=== PATIENT | female | born 1950 | race Caucasian/White ===

== ENCOUNTER 2017-07-26 17:21 | Emergency (ER) | payer MEDICARE ==
[~2017-07-26] VITALS: Ht 165.1 cm; Wt 105.7 kg
[~2017-07-26 17:21] MED LIST: ACYC800 PO; ALBU3IS INH; ALBU90OI61 INH; AMLO10 PO; ASPI81CH PO; BUDE6HFA INH; CHOL10002 PO; FURO40 PO; IBUP400 PO; LEVSOD100 PO; Metformin HCl1000 MG PO; POTCHL10ER PO; Quinapril HCl40 MG PO; SERT100 PO; Synthroid25 MCG PO; VITAMIN E100 UNI1 PO
== END 2017-07-26 19:27 | disposition home or self-care (01) ==
LOC: ER 17:21
DX: S80.11XA Contusion of right lower leg, initial encounter (principal); I10 Essential (primary) hypertension; E11.9 Type 2 diabetes mellitus without complications; E03.9 Hypothyroidism, unspecified; Z79.84 Long term (current) use of oral hypoglycemic drugs; Z79.899 Other long term (current) drug therapy; Z79.82 Long term (current) use of aspirin; Z90.49 Acquired absence of other specified parts of digestive tract; Z90.710 Acquired absence of both cervix and uterus; Z87.891 Personal history of nicotine dependence; W01.0XXA Fall on same level from slipping, tripping and stumbling without subsequent striking against object, initial encounter
CPT/HCPCS: 73590; 99283

== ENCOUNTER 2018-03-12 11:57 | Emergency (ER) | payer MEDICARE ==
[~2018-03-12] VITALS: Ht 160 cm; Wt 110.2 kg
[2018-03-12 12:54] LABS: BASOPHILS ABSOLUTE AUTO 0.06 K/mm3 (0.00-0.23); BASOPHILS PERCENT AUTO 1 % (0-2); EOSINOPHILS ABSOLUTE AUTO 0.33 K/mm3 (0.00-0.68); EOSINOPHILS PERCENT AUTO 3 % (0-6); Hematocrit 40.4 % (33.0-51.0); Hemoglobin 12.9 g/dL (11.5-16.0); IMMATURE GRAN ABSOLUTE AUTO 0.05 K/mm3 (0.00-0.10); IMMATURE GRAN PERCENT AUTO 1 % (0-1); LYMPHOCYTES PERCENT AUTO 14 % (21-46); MONOCYTES ABSOLUTE AUTO 0.64 K/mm3 (0.16-1.47); MONOCYTES PERCENT AUTO 6 % (4-13); Mean Corpuscular HGB 29.7 pg (26.0-34.0); Mean Corpuscular HGB Conc 31.9 g/dL (31.5-36.5); Mean Corpuscular Volume 93 fL (80-100); Mean Platelet Volume 9.3 fL (9.1-12.4); NEUTROPHILS ABSOLUTE AUTO 7.88 K/mm3 (1.96-9.15); NEUTROPHILS PERCENT AUTO 75 % (41-73); Platelet Count 441 K/mm3 (150-400); RDW Coefficient Variation 12.7 % (11.7-14.2); RDW Standard Deviation 43.6 fL (35.1-46.3); Red Blood Cell Count 4.34 M/mm3 (3.80-5.20); White Blood Cell Count 10.46 K/mm3 (4.00-11.30)
[2018-03-12 13:13] LABS: Alanine Aminotransfer (ALT/SGP 30 U/L (12-78); Albumin, Blood 3.6 g/dL (3.4-5.0); Albumin/Globulin Ratio 0.9 (0.8-1.8); Alk Phos 113 U/L (50-136); Anion Gap 6 mmol/L (6-16); Aspartate Aminotrans (AST/SGOT 19 U/L (12-37); Bilirubin, Total 0.5 mg/dL (0.1-1.0); Blood Urea Nitrogen 13 mg/dL (8-24); Bun/Creatinine Ratio 15.3 (12.0-20.0); CO2, Blood 33 mmol/L (21-32); Calcium, Blood 9.9 mg/dL (8.5-10.1); Chloride, Blood 101 mmol/L (98-108); Creatinine, Blood 0.85 mg/dL (0.40-1.00); Globulin, Blood 3.8 g/dL (2.2-4.0); Glomerular Filtration Rate >60 (60-); Glucose, Blood 180 mg/dL (70-99); Potassium, Blood 3.8 mmol/L (3.5-5.5); Sodium, Blood 140 mmol/L (136-145); Total Protein, Blood 7.4 g/dL (6.4-8.2)
[2018-03-12] MEDS ORDERED: Bactrim Ds Tab1 EACH PO (13:21)
[2018-03-12] MEDS ORDERED: CEPH500 PO (13:21)
== END 2018-03-12 13:41 | disposition home or self-care (01) ==
LOC: ER 11:57
PROVIDERS: Physician Assistant
DX: T81.49XA Infection following a procedure, other surgical site, initial encounter (principal); L03.115 Cellulitis of right lower limb; I10 Essential (primary) hypertension; E11.9 Type 2 diabetes mellitus without complications; Z87.891 Personal history of nicotine dependence
CPT/HCPCS: 36415; 80053; 85025; 93971; 99284-25

== ENCOUNTER 2021-06-18 14:18 | Inpatient (IN) | payer MEDICARE ==
[~2021-06-18] VITALS: Ht 162.6 cm; Wt 118.9 kg
[~2021-06-18 14:18] MED LIST changes: +Bactrim Ds Tab1 EACH PO; +CEPH500 PO
[2021-06-18 15:49] LABS: BASOPHILS ABSOLUTE AUTO 0.05 K/mm3 (0.00-0.23); BASOPHILS PERCENT AUTO 0 % (0-2); EOSINOPHILS ABSOLUTE AUTO 0.06 K/mm3 (0.00-0.68); EOSINOPHILS PERCENT AUTO 1 % (0-6); Hematocrit 44.6 % (33.0-51.0); Hemoglobin 15.1 g/dL (11.5-16.0); IMMATURE GRAN ABSOLUTE AUTO 0.05 K/mm3 (0.00-0.10); IMMATURE GRAN PERCENT AUTO 0 % (0-1); LYMPHOCYTES ABSOLUTE AUTO 0.96 K/mm3 (0.84-5.20); LYMPHOCYTES PERCENT AUTO 8 % (21-46); MONOCYTES ABSOLUTE AUTO 1.19 K/mm3 (0.16-1.47); MONOCYTES PERCENT AUTO 9 % (4-13); Mean Corpuscular HGB 31.1 pg (26.0-34.0); Mean Corpuscular HGB Conc 33.9 g/dL (31.5-36.5); Mean Corpuscular Volume 92 fL (80-100); NEUTROPHILS ABSOLUTE AUTO 10.56 K/mm3 (1.96-9.15); NEUTROPHILS PERCENT AUTO 82 % (41-73); Platelet Count 212 K/mm3 (150-400); RDW Coefficient Variation 12.7 % (11.7-14.2); RDW Standard Deviation 42.7 fL (35.1-46.3); Red Blood Cell Count 4.85 M/mm3 (3.80-5.20); White Blood Cell Count 12.87 K/mm3 (4.00-11.30)
[2021-06-18 16:13] LABS: Alanine Aminotransfer (ALT/SGP 30 U/L (12-78); Albumin, Blood 3.6 g/dL (3.4-5.0); Albumin/Globulin Ratio 1.1 (0.8-1.8); Alk Phos 88 U/L (50-136); Anion Gap 6 mmol/L (6-16); Aspartate Aminotrans (AST/SGOT 20 U/L (12-37); Bilirubin, Total 1.9 mg/dL (0.1-1.0); Blood Urea Nitrogen 9 mg/dL (8-24); Bun/Creatinine Ratio 13.7 (12.0-20.0); CO2, Blood 31 mmol/L (21-32); Calcium, Blood 9.8 mg/dL (8.5-10.1); Chloride, Blood 102 mmol/L (98-108); Creatinine, Blood 0.66 mg/dL (0.40-1.00); Globulin, Blood 3.2 g/dL (2.2-4.0); Glomerular Filtration Rate >60 (60-); Glucose, Blood 177 mg/dL (70-99); Potassium, Blood 3.7 mmol/L (3.5-5.5); Sodium, Blood 139 mmol/L (136-145); Total Protein, Blood 6.8 g/dL (6.4-8.2); Troponin I <0.015 ng/mL (0.000-0.040)
[2021-06-18 16:39] LABS: Influenza A, PCR NEGATIVE (NEGATIVE); Influenza B, PCR NEGATIVE (NEGATIVE); Resp Syncytial Virus, PCR NEGATIVE (NEGATIVE); SARS-Cov-2 (COVID-19) PCR, MMC NEGATIVE (NEGATIVE)
[2021-06-18] MEDS ORDERED: ATOR20 PO (19:07)
[2021-06-18] MEDS ORDERED: Isosorbide Mono60 MG PO (19:08)
[2021-06-18] MEDS ORDERED: ATEN25 PO (19:09)
[2021-06-18] MEDS ORDERED: XARELTO20 MG PO (19:09)
[2021-06-18] MEDS ORDERED: GLUCOPHAGE1000 M1 PO (19:10)
[2021-06-18] MEDS ORDERED: HYDCHL25 PO (19:11)
[2021-06-19 04:56] LABS: BASOPHILS ABSOLUTE AUTO 0.05 K/mm3 (0.00-0.23); BASOPHILS PERCENT AUTO 1 % (0-2); EOSINOPHILS ABSOLUTE AUTO 0.23 K/mm3 (0.00-0.68); EOSINOPHILS PERCENT AUTO 2 % (0-6); Hematocrit 45.8 % (33.0-51.0); IMMATURE GRAN ABSOLUTE AUTO 0.06 K/mm3 (0.00-0.10); IMMATURE GRAN PERCENT AUTO 1 % (0-1); LYMPHOCYTES ABSOLUTE AUTO 1.36 K/mm3 (0.84-5.20); LYMPHOCYTES PERCENT AUTO 12 % (21-46); MONOCYTES ABSOLUTE AUTO 1.08 K/mm3 (0.16-1.47); MONOCYTES PERCENT AUTO 10 % (4-13); Mean Corpuscular HGB 30.7 pg (26.0-34.0); Mean Corpuscular HGB Conc 32.8 g/dL (31.5-36.5); Mean Corpuscular Volume 94 fL (80-100); Mean Platelet Volume 10.1 fL (9.1-12.4); NEUTROPHILS PERCENT AUTO 75 % (41-73); Platelet Count 192 K/mm3 (150-400); RDW Coefficient Variation 12.8 % (11.7-14.2); RDW Standard Deviation 43.9 fL (35.1-46.3); Red Blood Cell Count 4.88 M/mm3 (3.80-5.20); White Blood Cell Count 10.98 K/mm3 (4.00-11.30)
--- NOTE | 2021-06-19 05:20 | NUR ---
SHIFT SUMMARY PT WAS ADMITTED FOR SEPSIS DUE TO PNEUMONIA. FULL CODE STATUS.PT IS AA0X4, PLEASANT AND COOPERATIVE WITH CARE. PT USED HER CPAP MACHINE THROUGH THE NIGHT. PER TELE MONITOR PT WAS AFIB 65-80 HR.PT WAS COMPLAINING OF RIB PAIN MOST OF THE NIGH.PT WAS MEDICATED FOR PAIN PER EMAR. PT IS ON 3L NC AT THE MOMENT .PT IS SOB WITH EXHAUSTION. BSS BILATERALLY EXPIRATORY WHEEZING. RESPIRATORY THERAPIST WAS CALLED AND NEBULIZER TX WAS GIVEN.PT STATED SHE FELT BETTER AFTERWARDS. PT IS RESTING NOW IN BED ,NO SIGN OF DISTRESS OBSERVED.BED IN LOWER POSITION AND CALL LIGHT IN EASY REACH.WILL CONTINUE TO MONITOR IN CARE.
[2021-06-19 05:34] LABS: Anion Gap 4 mmol/L (6-16); Blood Urea Nitrogen 12 mg/dL (8-24); Bun/Creatinine Ratio 17.6 (12.0-20.0); CO2, Blood 36 mmol/L (21-32); Calcium, Blood 9.7 mg/dL (8.5-10.1); Chloride, Blood 99 mmol/L (98-108); Creatinine, Blood 0.68 mg/dL (0.40-1.00); Glomerular Filtration Rate >60 (60-); Glucose, Blood 157 mg/dL (70-99); Potassium, Blood 3.7 mmol/L (3.5-5.5); Sodium, Blood 139 mmol/L (136-145)
--- NOTE | 2021-06-19 09:38 | NUR ---
PT'S DAUGHTER CALLED THERE WAS NO ANSWER SO MESSAGE WAS LEFT
--- NOTE | 2021-06-19 13:39 | NUR ---
PT WITH C/O WORSENING LT SIDED PAIN, PT REPOSITIONED TO FIND A POSITION OF COMFORT, TREATED WITH TYLENOL PO, AND HEATING PAD APPLIED. PT NOW WITH EYES CLOSED APPEARS TO BE SLEEPING WITH OCCASIONAL MOAN
[2021-06-19] MEDS ORDERED: Cetirizine HCl10 MG PO (16:24)
--- NOTE | 2021-06-19 17:19 | NUR ---
SHIFT NOTE HAS ELECTED TO NOT TAKE INSULIN COVERAGE FOR GLUCOSE THAT REMAINED <170 SHE TAKES ORAL DIABETIC AGENTS. AFIB 70s ON MONITOR. PT WEARS CPAP AT [facility], HAD BEEN ON 3L O2 VIA NC T/O THE DAY WITH A TRIAL REMOVAL OF O2, PT WAS ABLE TO REMAIN OF RA X2 HOURS. PT DOES REPORT INTERMITTENT LT RIB PAIN WHICH IS IMPROVED WITH TYLENOL AND HEAT THERAPY. NEW IV PLACED TO LT HAND. PT WAS ABLE TO GO VISIT HER TODAY IN ROOM 348.
--- NOTE | 2021-06-20 05:43 | NUR ---
SHIFT SUMMARY PTIS AA0X4, PLEASANT AND COOPERATIVE TO CARE. PT IS STILL COMPLAINING OF RIBS PAIN AND SOB WITH EXHAUSTION. PT WAS MEDICATED FOR PAIN PER EMAR. PER MONIOR TECH ,PT WAS AFIB WITH A CONTROL HR 79 TO 85.PTUSED HER CPAP MACHINE DURING THE NIGHT.PT'S BP WAS ELEVATED AT THE END OF SHIFT. HYDRALIZINE PRN WAS GIVEN ORDERE. BP WAS RECHECKED AND WENT DOWN . PT IS ON 3L NC ,SIITING DOWN, NO SIGN OF DISTRESS OBSERVED. WILL CONTINUE TO MONITOR UNTIL GIVEN REPORT TO ONCOMIND NURSE.
--- NOTE | 2021-06-20 08:00 | NUR ---
pt laying in bed watching tv, a/ox3, pleasant and cooperative with care, follows commands well, denies pain, lungs are dim t/o, resp even and unlabored, occ productive cough noted, complaining of dry nose, placed humitity on her 02, currently on 3 liters and uses cpap at hs, hrr distant, running afib per monitor, see strip, no edema noted, ppp+1, cap refill <3sec, vs stable, afebrile, iv sites are clear and patent, btx4, abd flat soft nontender, voids without diff, skin c/w/d, maew, shweta call light in reach.
[2021-06-20] MEDS ORDERED: PRED20 PO (13:02)
[2021-06-20] MEDS ORDERED: CEFD300 PO (13:03)
[2021-06-20] MEDS ORDERED: AZIT500 PO (13:04)
[2021-06-20] MEDS ORDERED: TRAM50 PO (13:05)
[2021-06-20] MEDS ORDERED: IPRAT-ALBUT 0.5-3 ML INH (13:06)
--- NOTE | 2021-06-20 13:33 | NUR ---
PT HAS BEEN DISCHARGED TO HOME, WENT OVER HER DISCHARGE INSTRUCTIONS WITH HER, PHARMACY WENT OVER HER MEDICATIONS WITH HER, SHE VERBALIZED UNDERSTANDING, FAXED HER NEW MEDICATIONS TO [facility] [address], IV REMOVED INTACT, WILL GO VISIT HER SPOUCE PRIOR TO LEAVING.
== END 2021-06-20 15:02 | disposition home or self-care (01) | DRG 871 ==
LOC: ER 14:18 → MEDS 16:47
PROVIDERS: Emergency Medicine; ADMIT Internal Medicine
DX: A41.9 Sepsis, unspecified organism (principal); J18.9 Pneumonia, unspecified organism; J96.01 Acute respiratory failure with hypoxia; Z68.42 Body mass index [BMI] 45.0-49.9, adult; E11.9 Type 2 diabetes mellitus without complications; Z20.822 Contact with and (suspected) exposure to COVID-19; I10 Essential (primary) hypertension; G47.33 Obstructive sleep apnea (adult) (pediatric); I16.0 Hypertensive urgency; I48.0 Paroxysmal atrial fibrillation; E66.9 Obesity, unspecified; F32.A Depression, unspecified; E78.5 Hyperlipidemia, unspecified; G25.81 Restless legs syndrome; E55.9 Vitamin D deficiency, unspecified; Z53.20 Procedure and treatment not carried out because of patient's decision for unspecified reasons; Z87.891 Personal history of nicotine dependence; Z99.89 Dependence on other enabling machines and devices; E03.9 Hypothyroidism, unspecified; Z90.49 Acquired absence of other specified parts of digestive tract; Z90.710 Acquired absence of both cervix and uterus; Z98.890 Other specified postprocedural states; Z79.01 Long term (current) use of anticoagulants; Z79.82 Long term (current) use of aspirin; Z79.899 Other long term (current) drug therapy
CPT/HCPCS: 0241U; 36415; 71045; 80048; 80053; 82947; 83605; 83880; 84145; 84484; 85025; 86140; 87040; 93005; 93010; 94640; 94660; 94760; 94761; 96365; 96367; 96375; 99285-25; A9270; J0360; J0456; J0696; J2270; J7030; J7050

== ENCOUNTER 2021-07-20 09:00 | Inpatient (IN) | payer MEDICARE ==
[~2021-07-20] VITALS: Ht 167.6 cm; Wt 119.2 kg
[~2021-07-20 09:00] MED LIST changes: +ATEN25 PO; +ATOR20 PO; +AZIT500 PO; +CEFD300 PO; +Cetirizine HCl10 MG PO; +GLUCOPHAGE1000 M1 PO; +HYDCHL25 PO; +IPRAT-ALBUT 0.5-3 ML INH; +Isosorbide Mono60 MG PO; +PRED20 PO; +TRAM50 PO; +XARELTO20 MG PO
[2021-07-20 10:19] LABS: BASOPHILS ABSOLUTE AUTO 0.05 K/mm3 (0.00-0.23); BASOPHILS PERCENT AUTO 1 % (0-2); EOSINOPHILS ABSOLUTE AUTO 0.19 K/mm3 (0.00-0.68); EOSINOPHILS PERCENT AUTO 2 % (0-6); Hematocrit 45.4 % (33.0-51.0); Hemoglobin 14.8 g/dL (11.5-16.0); IMMATURE GRAN ABSOLUTE AUTO 0.03 K/mm3 (0.00-0.10); IMMATURE GRAN PERCENT AUTO 0 % (0-1); LYMPHOCYTES ABSOLUTE AUTO 0.87 K/mm3 (0.84-5.20); LYMPHOCYTES PERCENT AUTO 11 % (21-46); MONOCYTES PERCENT AUTO 10 % (4-13); Mean Corpuscular HGB 30.7 pg (26.0-34.0); Mean Corpuscular HGB Conc 32.6 g/dL (31.5-36.5); Mean Corpuscular Volume 94 fL (80-100); Mean Platelet Volume 10.6 fL (9.1-12.4); NEUTROPHILS ABSOLUTE AUTO 6.19 K/mm3 (1.96-9.15); NEUTROPHILS PERCENT AUTO 76 % (41-73); Platelet Count 212 K/mm3 (150-400); RDW Coefficient Variation 13.1 % (11.7-14.2); RDW Standard Deviation 45.3 fL (35.1-46.3); Red Blood Cell Count 4.82 M/mm3 (3.80-5.20); White Blood Cell Count 8.13 K/mm3 (4.00-11.30)
[2021-07-20 10:35] LABS: Alanine Aminotransfer (ALT/SGP 54 U/L (12-78); Albumin, Blood 3.9 g/dL (3.4-5.0); Albumin/Globulin Ratio 1.1 (0.8-1.8); Alk Phos 89 U/L (50-136); Anion Gap 4 mmol/L (6-16); Aspartate Aminotrans (AST/SGOT 44 U/L (12-37); Bilirubin, Total 1.3 mg/dL (0.1-1.0); Blood Urea Nitrogen 10 mg/dL (8-24); Bun/Creatinine Ratio 18.2 (12.0-20.0); CO2, Blood 32 mmol/L (21-32); Calcium, Blood 9.4 mg/dL (8.5-10.1); Chloride, Blood 105 mmol/L (98-108); Creatinine, Blood 0.55 mg/dL (0.40-1.00); Globulin, Blood 3.5 g/dL (2.2-4.0); Glomerular Filtration Rate >60 (60-); Glucose, Blood 170 mg/dL (70-99); Potassium, Blood 4.2 mmol/L (3.5-5.5); Sodium, Blood 141 mmol/L (136-145); Total Protein, Blood 7.4 g/dL (6.4-8.2)
[2021-07-20 10:50] LABS: Influenza A, PCR NEGATIVE (NEGATIVE); Influenza B, PCR NEGATIVE (NEGATIVE); Resp Syncytial Virus, PCR NEGATIVE (NEGATIVE); SARS-Cov-2 (COVID-19) PCR, MMC NEGATIVE (NEGATIVE)
--- NOTE | 2021-07-20 14:37 | NUR ---
ARRIVAL TO UNIT PT ARRIVED TO UNIT FROM ER. ABLE TO TRANSFER SELF TO BED. SHORTNESS OF BREATH ON EXERTION. 4L NASAL CANULA. SPOKE WITH PATIENT ABOUT USING BSC D/T DYSPNEA, SHE IS ADAMANT ON AMBULATING TO RESTROOM. SHE WILL CALL TO HAVE HELP THOUGH. LUNGS COARSE ON LEFT SIDE. EXPIRATORY WHEEZE T/O. SHE REPORTS SHE HAS BEEN ON 3L NASAL CANULA SINCE PNEUMONIA DIAGNOSES ON 06/29. SHE REPORTS FEELING BETTER ON ARRIVAL TO FLOOR THAN INITIALLY IN ER.
--- NOTE | 2021-07-20 16:41 | NUR ---
NO ACUTE CHANGES SINCE ARRIVAL TO UNIT. PT PLEASANT AND COOPERATIVE, SHE HAS BEEN SITTING UP IN BED WATCHING TV ON HER TABLET. TOLERATING PO WELL, ABLE TO AMBULATE TO RESTROOM WITH SOME SOB ONCE BACK TO BED. ONLY ABLE TO TOLERATE LAYING IN BED IF SHE IS SITTING IN HIGH FOWLERS. CBG OF 299 ON SPOT CHECK PER DR. FRANKS. NEW ORDERS FOR ACHS AND SLIDING SCALE.
--- NOTE | 2021-07-21 04:02 | NUR ---
DAVID WAS UP AND DOWN LAST NIGHT AFTER TAKING IV LASIX IN THE EVENING. URINE IS VERY DILUTE IN APPEARANCE AND CAME FREQUENTLY FOR HER. BLOOD PRESSURE AT THE CHANGE OF SHIFT WAS QUITE HIGH WITH SYSTOLIC IN THE 160'S, AND A DIASTOLIC IN THE 120 RANGE. IT WAS AT THAT TIME THAT PATIENTS IMDUR WELL ASA A 40MG DOSE OF IV LASIX WAS GIVEN PER ORDER. BP 45 MINUTES LATER 150/80'S. PATIENT IS ALERT AND ORIENTED TIMES 4, PLEASANT AND COOPERATIVE WITH CARE. DOES GET TEARFUL WHEN SUPPORT FOR THE LOSS OF HER SPOUSE OF 48 YEARS IS OFFERED.
[2021-07-21 04:30] LABS: BASOPHILS ABSOLUTE AUTO 0.02 K/mm3 (0.00-0.23); BASOPHILS PERCENT AUTO 0 % (0-2); EOSINOPHILS ABSOLUTE AUTO 0.01 K/mm3 (0.00-0.68); EOSINOPHILS PERCENT AUTO 0 % (0-6); Hematocrit 40.5 % (33.0-51.0); Hemoglobin 13.2 g/dL (11.5-16.0); IMMATURE GRAN ABSOLUTE AUTO 0.03 K/mm3 (0.00-0.10); IMMATURE GRAN PERCENT AUTO 0 % (0-1); LYMPHOCYTES PERCENT AUTO 12 % (21-46); MONOCYTES ABSOLUTE AUTO 0.79 K/mm3 (0.16-1.47); MONOCYTES PERCENT AUTO 11 % (4-13); Mean Corpuscular HGB 30.4 pg (26.0-34.0); Mean Corpuscular HGB Conc 32.6 g/dL (31.5-36.5); Mean Corpuscular Volume 93 fL (80-100); Mean Platelet Volume 10.4 fL (9.1-12.4); NEUTROPHILS PERCENT AUTO 76 % (41-73); Platelet Count 204 K/mm3 (150-400); RDW Coefficient Variation 12.9 % (11.7-14.2); RDW Standard Deviation 43.8 fL (35.1-46.3); Red Blood Cell Count 4.34 M/mm3 (3.80-5.20); White Blood Cell Count 6.95 K/mm3 (4.00-11.30)
[2021-07-21 04:50] LABS: Alanine Aminotransfer (ALT/SGP 40 U/L (12-78); Albumin, Blood 3.4 g/dL (3.4-5.0); Alk Phos 73 U/L (50-136); Anion Gap 4 mmol/L (6-16); Aspartate Aminotrans (AST/SGOT 17 U/L (12-37); Bilirubin, Total 1.3 mg/dL (0.1-1.0); Blood Urea Nitrogen 16 mg/dL (8-24); Bun/Creatinine Ratio 25.4 (12.0-20.0); CO2, Blood 32 mmol/L (21-32); Calcium, Blood 9.4 mg/dL (8.5-10.1); Chloride, Blood 103 mmol/L (98-108); Creatinine, Blood 0.63 mg/dL (0.40-1.00); Globulin, Blood 3.4 g/dL (2.2-4.0); Glomerular Filtration Rate >60 (60-); Glucose, Blood 148 mg/dL (70-99); Potassium, Blood 3.7 mmol/L (3.5-5.5); Sodium, Blood 139 mmol/L (136-145); Total Protein, Blood 6.8 g/dL (6.4-8.2)
[2021-07-21] MEDS ORDERED: NIFE90ER PO (15:42)
[2021-07-21] MEDS ORDERED: AIRDUO RESPICL1 EAC4 INH (15:43)
[2021-07-21] MEDS ORDERED: FURO20 PO (15:43)
--- NOTE | 2021-07-21 16:53 | NUR ---
DC SUMMARY PT DISCHARGING TO HOME TODAY. PT AxOx4. PLEASANT AND COOPERATIVE WITH CARE. PT HAD ECHO AND CXR TODAY. DISCUSSED DC INSTRUCTIONS W/ PATIENT, INCLUDING DC MEDICATIONS, AND FOLLOW UP APPOINTMENTS. PT VERBALIZES UNDERSTANDING. DENIES ANY FURTHER QUESTIONS AT THIS TIME. VITALS REVIEWED. PT SAFELY ESCORTED OUT VIA WC WITH DIE INSPECTOR TO CAR WITH FAMILY MEMBER.
== END 2021-07-21 16:37 | disposition home or self-care (01) | DRG 292 ==
LOC: ER 09:00 → MEDS 13:21
PROVIDERS: Emergency Medicine; ADMIT Family Medicine
DX: I11.0 Hypertensive heart disease with heart failure (principal); E66.2 Morbid (severe) obesity with alveolar hypoventilation; Z68.41 Body mass index [BMI] 40.0-44.9, adult; J44.1 Chronic obstructive pulmonary disease with (acute) exacerbation; Z20.822 Contact with and (suspected) exposure to COVID-19; I50.9 Heart failure, unspecified; E11.9 Type 2 diabetes mellitus without complications; I48.91 Unspecified atrial fibrillation; E03.9 Hypothyroidism, unspecified; Z23 Encounter for immunization; F32.A Depression, unspecified; E78.5 Hyperlipidemia, unspecified; G89.29 Other chronic pain; G25.81 Restless legs syndrome; M19.90 Unspecified osteoarthritis, unspecified site; F41.9 Anxiety disorder, unspecified; Z79.84 Long term (current) use of oral hypoglycemic drugs; Z79.899 Other long term (current) drug therapy; Z79.01 Long term (current) use of anticoagulants; Z90.49 Acquired absence of other specified parts of digestive tract; Z90.710 Acquired absence of both cervix and uterus; Z87.891 Personal history of nicotine dependence
CPT/HCPCS: 0241U; 36415; 71045; 71046; 80053; 82947; 83605; 83735; 84145; 85025; 87040; 90686; 94640; 94644; 94762; 96365; 96375; 99285-25; A9270; C8929; J0456; J0696; J1940; J2930; J7050; Q9957

== ENCOUNTER → 2021-09-05 | Outpatient (CLI) | payer MEDICARE ==
[~2021-09-05] MED LIST changes: +AIRDUO RESPICL1 EAC4 INH; +FURO20 PO; +NIFE90ER PO
[2021-09-05 15:25] LABS: BASOPHILS ABSOLUTE AUTO 0.06 K/mm3 (0.00-0.23); BASOPHILS PERCENT AUTO 1 % (0-2); EOSINOPHILS ABSOLUTE AUTO 0.18 K/mm3 (0.00-0.68); EOSINOPHILS PERCENT AUTO 3 % (0-6); Hematocrit 41.4 % (33.0-51.0); Hemoglobin 14.1 g/dL (11.5-16.0); IMMATURE GRAN ABSOLUTE AUTO 0.03 K/mm3 (0.00-0.10); IMMATURE GRAN PERCENT AUTO 0 % (0-1); LYMPHOCYTES ABSOLUTE AUTO 1.77 K/mm3 (0.84-5.20); LYMPHOCYTES PERCENT AUTO 25 % (21-46); MONOCYTES ABSOLUTE AUTO 0.57 K/mm3 (0.16-1.47); MONOCYTES PERCENT AUTO 8 % (4-13); Mean Corpuscular HGB 31.3 pg (26.0-34.0); Mean Corpuscular HGB Conc 34.1 g/dL (31.5-36.5); Mean Corpuscular Volume 92 fL (80-100); Mean Platelet Volume 10.7 fL (9.1-12.4); NEUTROPHILS PERCENT AUTO 63 % (41-73); Platelet Count 192 K/mm3 (150-400); RDW Coefficient Variation 12.8 % (11.7-14.2); RDW Standard Deviation 42.4 fL (35.1-46.3); Red Blood Cell Count 4.51 M/mm3 (3.80-5.20); White Blood Cell Count 7.11 K/mm3 (4.00-11.30)
[2021-09-05 15:28] LABS: Bun/Creatinine Ratio 22.4 (12.0-20.0); Calcium, Blood 10.6 mg/dL (8.5-10.1); Creatinine, Blood 1.47 mg/dL (0.40-1.00); Potassium, Blood 3.6 mmol/L (3.5-5.5)
== END | disposition home or self-care (01) ==
LOC: LAB SHORT 15:18
PROVIDERS: Physician Assistant Surgical
DX: R42 Dizziness and giddiness (principal)
CPT/HCPCS: 80048; 83880; 85025

== ENCOUNTER → 2021-10-12 | Outpatient (CLI) | payer MEDICARE ==
[2021-10-12 14:25] LABS: BASOPHILS ABSOLUTE AUTO 0.04 K/mm3 (0.00-0.23); BASOPHILS PERCENT AUTO 0 % (0-2); EOSINOPHILS ABSOLUTE AUTO 0.03 K/mm3 (0.00-0.68); EOSINOPHILS PERCENT AUTO 0 % (0-6); Hematocrit 42.7 % (33.0-51.0); Hemoglobin 14.7 g/dL (11.5-16.0); IMMATURE GRAN PERCENT AUTO 1 % (0-1); LYMPHOCYTES ABSOLUTE AUTO 0.89 K/mm3 (0.84-5.20); LYMPHOCYTES PERCENT AUTO 9 % (21-46); MONOCYTES ABSOLUTE AUTO 0.37 K/mm3 (0.16-1.47); MONOCYTES PERCENT AUTO 4 % (4-13); Mean Corpuscular HGB 31.8 pg (26.0-34.0); Mean Corpuscular HGB Conc 34.4 g/dL (31.5-36.5); Mean Corpuscular Volume 92 fL (80-100); Mean Platelet Volume 10.3 fL (9.1-12.4); NEUTROPHILS ABSOLUTE AUTO 8.77 K/mm3 (1.96-9.15); NEUTROPHILS PERCENT AUTO 86 % (41-73); Platelet Count 219 K/mm3 (150-400); RDW Coefficient Variation 12.8 % (11.7-14.2); RDW Standard Deviation 43.4 fL (35.1-46.3); Red Blood Cell Count 4.62 M/mm3 (3.80-5.20)
[2021-10-12 14:45] LABS: Albumin, Blood 3.9 g/dL (3.4-5.0); Albumin/Globulin Ratio 1.1 (0.8-1.8); Bilirubin, Total 0.7 mg/dL (0.1-1.0); Calcium, Blood 9.5 mg/dL (8.5-10.1); Creatinine, Blood 1.37 mg/dL (0.40-1.00); Free Thyroxine 1.25 ng/dL (0.70-1.60); Globulin, Blood 3.5 g/dL (2.2-4.0); Potassium, Blood 4.4 mmol/L (3.5-5.5); Thyroid Stimulating Hormone 0.5 uIU/mL (0.360-4.800); Total Protein, Blood 7.4 g/dL (6.4-8.2)
== END ==
LOC: LAB SHORT 14:07 → LAB 14:07
PROVIDERS: General Practice
DX: E87.5 Hyperkalemia (principal); R06.2 Wheezing; R09.02 Hypoxemia; R53.81 Other malaise
CPT/HCPCS: 80053; 82330; 83880; 83970; 84439; 84443; 85025; 85379

== ENCOUNTER 2021-11-03 22:15 | Emergency (ER) | payer MEDICARE ==
[~2021-11-03] VITALS: Ht 165.1 cm; Wt 113.4 kg
[2021-11-03 23:26] LABS: BASOPHILS ABSOLUTE AUTO 0.04 K/mm3 (0.00-0.23); BASOPHILS PERCENT AUTO 1 % (0-2); EOSINOPHILS ABSOLUTE AUTO 0.21 K/mm3 (0.00-0.68); EOSINOPHILS PERCENT AUTO 3 % (0-6); Hematocrit 40.8 % (33.0-51.0); Hemoglobin 13.6 g/dL (11.5-16.0); IMMATURE GRAN ABSOLUTE AUTO 0.04 K/mm3 (0.00-0.10); IMMATURE GRAN PERCENT AUTO 1 % (0-1); LYMPHOCYTES ABSOLUTE AUTO 1.14 K/mm3 (0.84-5.20); LYMPHOCYTES PERCENT AUTO 15 % (21-46); MONOCYTES ABSOLUTE AUTO 0.67 K/mm3 (0.16-1.47); MONOCYTES PERCENT AUTO 9 % (4-13); Mean Corpuscular HGB 31.3 pg (26.0-34.0); Mean Corpuscular HGB Conc 33.3 g/dL (31.5-36.5); Mean Corpuscular Volume 94 fL (80-100); Mean Platelet Volume 10.7 fL (9.1-12.4); NEUTROPHILS ABSOLUTE AUTO 5.62 K/mm3 (1.96-9.15); NEUTROPHILS PERCENT AUTO 73 % (41-73); Platelet Count 135 K/mm3 (150-400); RDW Coefficient Variation 12.8 % (11.7-14.2); RDW Standard Deviation 44.8 fL (35.1-46.3); Red Blood Cell Count 4.34 M/mm3 (3.80-5.20); White Blood Cell Count 7.72 K/mm3 (4.00-11.30)
[2021-11-03 23:43] LABS: Albumin, Blood 3.6 g/dL (3.4-5.0); Albumin/Globulin Ratio 1.1 (0.8-1.8); Bun/Creatinine Ratio 17.2 (12.0-20.0); Calcium, Blood 9.7 mg/dL (8.5-10.1); Creatinine, Blood 0.76 mg/dL (0.40-1.00); Globulin, Blood 3.4 g/dL (2.2-4.0); Potassium, Blood 3.8 mmol/L (3.5-5.5)
[2021-11-04] MEDS ORDERED: PRED20 PO (01:20)
== END 2021-11-04 01:42 | disposition home or self-care (01) ==
LOC: ER 22:15
PROVIDERS: Student in an Organized Health Care Education/Training Program
DX: J45.901 Unspecified asthma with (acute) exacerbation (principal); I10 Essential (primary) hypertension; E11.9 Type 2 diabetes mellitus without complications; E03.9 Hypothyroidism, unspecified; Z87.891 Personal history of nicotine dependence; Z79.899 Other long term (current) drug therapy; Z79.84 Long term (current) use of oral hypoglycemic drugs; Z79.01 Long term (current) use of anticoagulants; Z99.81 Dependence on supplemental oxygen
CPT/HCPCS: 71046; 80053; 84484; 85025; 93005; 93010; 94640; 94644; 94664; 99285-25

== ENCOUNTER 2021-11-21 11:35 | Inpatient (IN) | payer MEDICARE ==
[~2021-11-21] VITALS: Ht 162.6 cm; Wt 112.5 kg
[~2021-11-21 11:35] MED LIST changes: -ALBU8HFA2 INH; -AMLO5 PO; -ATENOLOL25 MG PO; -ATOR80 PO; -ATORVASTATIN CA80 M1 PO; -Accupril40 MG PO; -Aldactone50 MG PO; -BUDESONIDE1 MG/2 M1 INH; -EUTHYROX100 MCG PO; -EUTHYROX25 MCG PO; -Glucophage 500 mg PO; -ISOSORBIDE MONO60 MG PO; -K-Dur20 MEQ PO; -KLOR-CON M1010 MEQ PO; -Pulmicort INH; -SERT25 PO; -TIOT18 INH; -TORS10 PO; -TORSE20 PO; -XARELTO10 M1 PO
[2021-11-21] MEDS ORDERED: ALBU8HFA2 INH (12:22)
[2021-11-21] MEDS ORDERED: ATENOLOL25 MG PO (12:23)
[2021-11-21] MEDS ORDERED: ATORVASTATIN CA80 M1 PO (12:24)
[2021-11-21] MEDS ORDERED: Pulmicort INH (12:26)
[2021-11-21] MEDS ORDERED: ISOSORBIDE MONO60 MG PO (12:27)
[2021-11-21] MEDS ORDERED: EUTHYROX25 MCG PO (12:28)
[2021-11-21] MEDS ORDERED: EUTHYROX100 MCG PO (12:29)
[2021-11-21] MEDS ORDERED: Glucophage 500 mg PO (12:31)
[2021-11-21] MEDS ORDERED: K-Dur20 MEQ PO (12:32)
[2021-11-21] MEDS ORDERED: Accupril40 MG PO (12:33)
[2021-11-21] MEDS ORDERED: XARELTO10 M1 PO (12:35)
[2021-11-21] MEDS ORDERED: SERT100 PO (12:36)
[2021-11-21] MEDS ORDERED: SERT25 PO (12:37)
[2021-11-21] MEDS ORDERED: Aldactone50 MG PO (12:38)
[2021-11-21] MEDS ORDERED: TORS10 PO (12:40)
[2021-11-21] MEDS ORDERED: TRAM50 PO (12:41)
[2021-11-21 14:01] LABS: Bun/Creatinine Ratio 11.8 (12.0-20.0); Calcium, Blood 9.6 mg/dL (8.5-10.1); Creatinine, Blood 5.32 mg/dL (0.40-1.00); Potassium, Blood 4.4 mmol/L (3.5-5.5)
[2021-11-21] MEDS ORDERED: ATOR80 PO (15:34)
[2021-11-21] MEDS ORDERED: TORSE20 PO (15:46)
[2021-11-21] MEDS ORDERED: BUDESONIDE1 MG/2 M1 INH (15:55)
[2021-11-21] MEDS ORDERED: TIOT18 INH (15:56)
--- NOTE | 2021-11-21 17:58 | NUR ---
SHIFT SUMMARY: PT A/O X 4 IND IN ROOM. PT DENIES PAIN, N/V THROUGHOUT SHIFT. SHE DID HAVE ONE EPISODE OF DIARRHEA WITH BROWN STOOL. PT URINATING CLEAR YELLOW URINE. DRINKING FLUIDS WELL. PLEASANT AND COOPERATIVE WITH CARES. PT SET UP ON BIPAP USING HOSPITAL EQUIPMENT. MED RECONCILIATION COMPLETED.
--- NOTE | 2021-11-22 03:53 | NUR ---
PATIENT WITH VSS ON 4L NC OVERNIGHT. PATIENT UNABLE TO TOLERATE ANY OF THE MULTIPLE FACE MASKS RT ATTEMPTED TO FIT HER WITH FOR HER CPAP OVERNIGHT AND ENDED UP WITH THE NC. PATIENTS CONTINUOUS PULSE OX WAS WNL OVERNIGHT. PATIENT UP WITH MINIMAL ASSIST DURING NIGHT TO VOID. MOVING DID CAUSE SOME NAUSEA THAT SPONTANEOUSLY RESOLVED ONCE THE PATIENT WAS BACK IN BED. NO ACUTE EVENTS OVERNIGHT.
[2021-11-22 05:39] LABS: BASOPHILS ABSOLUTE AUTO 0.04 K/mm3 (0.00-0.23); BASOPHILS PERCENT AUTO 1 % (0-2); EOSINOPHILS PERCENT AUTO 1 % (0-6); Hematocrit 34.4 % (33.0-51.0); Hemoglobin 11.7 g/dL (11.5-16.0); IMMATURE GRAN ABSOLUTE AUTO 0.03 K/mm3 (0.00-0.10); IMMATURE GRAN PERCENT AUTO 0 % (0-1); LYMPHOCYTES ABSOLUTE AUTO 1.16 K/mm3 (0.84-5.20); LYMPHOCYTES PERCENT AUTO 17 % (21-46); MONOCYTES ABSOLUTE AUTO 0.97 K/mm3 (0.16-1.47); MONOCYTES PERCENT AUTO 14 % (4-13); Mean Corpuscular HGB 31.7 pg (26.0-34.0); Mean Corpuscular Volume 93 fL (80-100); Mean Platelet Volume 10.9 fL (9.1-12.4); NEUTROPHILS ABSOLUTE AUTO 4.63 K/mm3 (1.96-9.15); NEUTROPHILS PERCENT AUTO 67 % (41-73); Platelet Count 157 K/mm3 (150-400); RDW Coefficient Variation 12.9 % (11.7-14.2); RDW Standard Deviation 43.9 fL (35.1-46.3); Red Blood Cell Count 3.69 M/mm3 (3.80-5.20); White Blood Cell Count 6.93 K/mm3 (4.00-11.30)
[2021-11-22 06:03] LABS: Albumin, Blood 3.4 g/dL (3.4-5.0); Albumin/Globulin Ratio 1.2 (0.8-1.8); Bilirubin, Total 1.9 mg/dL (0.1-1.0); Calcium, Blood 8.9 mg/dL (8.5-10.1); Creatinine, Blood 4.93 mg/dL (0.40-1.00); Globulin, Blood 2.8 g/dL (2.2-4.0); Potassium, Blood 3.8 mmol/L (3.5-5.5); Total Protein, Blood 6.2 g/dL (6.4-8.2)
[2021-11-22 13:47] LABS: Eosinophils-Raw #,Urine 0
[2021-11-22 13:48] LABS: White Blood Cells Urine 0-2 /hpf (0-5)
--- NOTE | 2021-11-22 19:13 | NUR ---
PATIENT IS ALERT AND ORIENTED AND COOPERATIVE WITH CARE. LR AT 75/HR. SBA TO THE BATHROOM. 2L O2 AT PM. PATIENT HAS HER OWN CPAP HERE. ADVANCED TO SOFT DIET THIS EVENING. NO NEW CONCERNS TODAY. WILL CONTINUE TO MONITOR
--- NOTE | 2021-11-23 04:59 | NUR ---
SHIFT SUMMARY NO ACUTE CHANGES OVERNIHGT. VSS. ADMITTED FOR CHESTER. IV HYDRATION OVERNIGHT. PT ON LR 75ML/HR. AOX4. INDEPENDENT IN ROOM. PT WEARS CPAP AT NIGHT. VOIDING WITHOUT ISSUES. DENIES DYSURIA. PT STS SHE GOT UP X3 OVERNIGHT TO VOID, WITH DECENT AMT OF URINE OUTPUT. PT IS STEADY ON HIS FEET DENIES DIZZINESS. TOLERATING PO INTAKE. DENIES NAUSEA AND VOMITING. NO BM OVERNIGHT. CALL LIGHT WITHIN REACH. WILL PROVIDE REPORT TO ONCOMING NURSE.
[2021-11-23 05:18] LABS: BASOPHILS ABSOLUTE AUTO 0.05 K/mm3 (0.00-0.23); BASOPHILS PERCENT AUTO 1 % (0-2); EOSINOPHILS ABSOLUTE AUTO 0.11 K/mm3 (0.00-0.68); EOSINOPHILS PERCENT AUTO 2 % (0-6); Hematocrit 32.9 % (33.0-51.0); Hemoglobin 11.1 g/dL (11.5-16.0); IMMATURE GRAN ABSOLUTE AUTO 0.02 K/mm3 (0.00-0.10); IMMATURE GRAN PERCENT AUTO 0 % (0-1); LYMPHOCYTES ABSOLUTE AUTO 1.17 K/mm3 (0.84-5.20); LYMPHOCYTES PERCENT AUTO 24 % (21-46); MONOCYTES ABSOLUTE AUTO 0.67 K/mm3 (0.16-1.47); MONOCYTES PERCENT AUTO 14 % (4-13); Mean Corpuscular HGB 31.5 pg (26.0-34.0); Mean Corpuscular HGB Conc 33.7 g/dL (31.5-36.5); Mean Corpuscular Volume 94 fL (80-100); Mean Platelet Volume 10.9 fL (9.1-12.4); NEUTROPHILS ABSOLUTE AUTO 2.86 K/mm3 (1.96-9.15); NEUTROPHILS PERCENT AUTO 59 % (41-73); Platelet Count 142 K/mm3 (150-400); RDW Coefficient Variation 12.8 % (11.7-14.2); RDW Standard Deviation 43.9 fL (35.1-46.3); Red Blood Cell Count 3.52 M/mm3 (3.80-5.20); White Blood Cell Count 4.88 K/mm3 (4.00-11.30)
[2021-11-23 05:43] LABS: Albumin, Blood 3.3 g/dL (3.4-5.0); Albumin/Globulin Ratio 1.2 (0.8-1.8); Bilirubin, Total 1.7 mg/dL (0.1-1.0); Bun/Creatinine Ratio 17.2 (12.0-20.0); Creatinine, Blood 3.38 mg/dL (0.40-1.00); Globulin, Blood 2.7 g/dL (2.2-4.0); Potassium, Blood 3.6 mmol/L (3.5-5.5)
--- NOTE | 2021-11-23 17:22 | NUR ---
SHIFT SUMMARY; PATIRNT HAD NO ACUTECHANGES IN CONDITION NOTED TODAY. SHE IS COOPERATIVE WITH CARE. IV FLUIDS 75ML/HR LACTATED RINGERS. CHEM BG COVERAGE I UNIT AT BREAKFAST AND 1 UNIT AT LUNCH. NO COVERAGE AT DINNER FOR CHEM BG <150. PATIENT IS AO X 4 THROUGHOUT THE DAY. OUTPUT OF 500ML URINE TODAY. NO COMPLAINTS OF PAIN OR DISCOMFORT. DURING THE DAY. PATIENT SAYS SHE IS LOOKING FORWARD TO GOING HOME. 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
--- NOTE | 2021-11-24 05:08 | NUR ---
SHIFT SUMMARY: PT IS A/OX4. SHE HAS BEEN INDEPENDENT IN THE ROOM. THE PT DID HAVE A SHOWER AROUND 0500. SHE HAS LR INFUSING @ 75ML/HR AND IS VOIDING FREQUENTLY. SHE HAD NO C/O THIS SHIFT. CALL LIGHT IS WITHIN REACH AND WE'LL CONTINUE TO MONITOR.
[2021-11-24 05:36] LABS: BASOPHILS ABSOLUTE AUTO 0.06 K/mm3 (0.00-0.23); BASOPHILS PERCENT AUTO 1 % (0-2); EOSINOPHILS ABSOLUTE AUTO 0.13 K/mm3 (0.00-0.68); EOSINOPHILS PERCENT AUTO 2 % (0-6); Hematocrit 34.5 % (33.0-51.0); Hemoglobin 11.7 g/dL (11.5-16.0); IMMATURE GRAN ABSOLUTE AUTO 0.02 K/mm3 (0.00-0.10); IMMATURE GRAN PERCENT AUTO 0 % (0-1); LYMPHOCYTES ABSOLUTE AUTO 1.65 K/mm3 (0.84-5.20); LYMPHOCYTES PERCENT AUTO 29 % (21-46); MONOCYTES PERCENT AUTO 12 % (4-13); Mean Corpuscular HGB 31.7 pg (26.0-34.0); Mean Corpuscular HGB Conc 33.9 g/dL (31.5-36.5); Mean Corpuscular Volume 94 fL (80-100); Mean Platelet Volume 10.9 fL (9.1-12.4); NEUTROPHILS ABSOLUTE AUTO 3.18 K/mm3 (1.96-9.15); NEUTROPHILS PERCENT AUTO 56 % (41-73); Platelet Count 173 K/mm3 (150-400); RDW Coefficient Variation 12.6 % (11.7-14.2); RDW Standard Deviation 43.2 fL (35.1-46.3); Red Blood Cell Count 3.69 M/mm3 (3.80-5.20); White Blood Cell Count 5.74 K/mm3 (4.00-11.30)
[2021-11-24 06:08] LABS: Bun/Creatinine Ratio 19.2 (12.0-20.0); Calcium, Blood 9.5 mg/dL (8.5-10.1); Creatinine, Blood 2.29 mg/dL (0.40-1.00)
--- NOTE | 2021-11-24 16:47 | NUR ---
SHIFT SUMMARY; PATIENT HAD UNEVENFUL DAY. SHE AMBULATES IN HALLWAY WITHOUT ASSIST. IV FLUIDS A5T 50ML/HR LACTATED RINGERS. IS NOW CONSULTED FROM [id number] AND NEW ORDERS RECEIVED INCLUDING LABS AND 24 HOUR URINE ORDERED. PATIENT IS COVERED WITH 2 UNITS INSULIN AT LUNCH TIME TODAY FOR ELEVATED CHEM BG. SHE IS ORIENTED X 4 THROUGOUT THE DAY. HAS PLEASANT AFFECT AND USES CALL LIGHT APPROPRIATELY.
--- NOTE | 2021-11-25 03:38 | NUR ---
SHIFT SUMMARY: PT IS A/OX4. INDEPENDENT IN THE ROOM/HALLWAY. SHE CURRENTLY HAS A 24 HOUR URINE DUE TO BE COLLECTED @ 1730. THE PT DID VERBALIZE THAT SHE HAD A MEDIUM BM ON 11/24 DAYSHIFT THAT WAS NOT RELAYED TO THE RN OR NEW CAR DRIVER. SHE HAD NO C/O THIS NOC SHIFT AND WE'LL CONTINUE TO MONITOR.
[2021-11-25 05:12] LABS: BASOPHILS ABSOLUTE AUTO 0.03 K/mm3 (0.00-0.23); BASOPHILS PERCENT AUTO 1 % (0-2); EOSINOPHILS ABSOLUTE AUTO 0.14 K/mm3 (0.00-0.68); EOSINOPHILS PERCENT AUTO 3 % (0-6); Hematocrit 32.1 % (33.0-51.0); Hemoglobin 10.9 g/dL (11.5-16.0); IMMATURE GRAN ABSOLUTE AUTO 0.02 K/mm3 (0.00-0.10); IMMATURE GRAN PERCENT AUTO 0 % (0-1); LYMPHOCYTES ABSOLUTE AUTO 1.21 K/mm3 (0.84-5.20); LYMPHOCYTES PERCENT AUTO 25 % (21-46); MONOCYTES ABSOLUTE AUTO 0.63 K/mm3 (0.16-1.47); MONOCYTES PERCENT AUTO 13 % (4-13); Mean Corpuscular HGB 31.9 pg (26.0-34.0); Mean Corpuscular Volume 94 fL (80-100); Mean Platelet Volume 10.9 fL (9.1-12.4); NEUTROPHILS ABSOLUTE AUTO 2.82 K/mm3 (1.96-9.15); NEUTROPHILS PERCENT AUTO 58 % (41-73); Platelet Count 159 K/mm3 (150-400); RDW Coefficient Variation 12.6 % (11.7-14.2); RDW Standard Deviation 43.5 fL (35.1-46.3); Red Blood Cell Count 3.42 M/mm3 (3.80-5.20); White Blood Cell Count 4.85 K/mm3 (4.00-11.30)
[2021-11-25 05:33] LABS: Albumin, Blood 3.3 g/dL (3.4-5.0); Albumin/Globulin Ratio 1.2 (0.8-1.8); Bilirubin, Total 1.5 mg/dL (0.1-1.0); Bun/Creatinine Ratio 17.5 (12.0-20.0); Calcium, Blood 9.5 mg/dL (8.5-10.1); Creatinine, Blood 1.83 mg/dL (0.40-1.00); Globulin, Blood 2.7 g/dL (2.2-4.0); Magnesium, Blood 1.9 mg/dL (1.6-2.4); Potassium, Blood 3.7 mmol/L (3.5-5.5)
--- NOTE | 2021-11-25 18:03 | NUR ---
SHIFT SUMMARY PT A&O, FOLLOWS COMMANDS. VERY PLEASANT. NEW IV INSERTED TO L WRIST, LR STILL INFUSING AT 50ML/HR. PT AMBULATED HALLS DURING SHIFT, INDEPENDENT. 24 HR URINE FINISHED AT 1730 AND SENT TO LAB. NO C/O PAIN. WILL CONTINUE TO MONITOR
[2021-11-25 19:41] LABS: Protein, Urine Quantitative 10.6 mg/dL (0.0-11.9)
--- NOTE | 2021-11-26 04:21 | NUR ---
SHIFT SUMMARY: PT IS A/OX4. INDEPEDENT IN THE ROOM/HALLWAY. IT IS POSSIBLE THAT SHE WILL DC TODAY. SHE HAS NOT HAD ANY C/O OF PAIN OR NAUSEA. SHE CONTINUES TO HAVE LR @ 50 ML/HR. NO NEW CHANGES TO REPORT AND WE'LL TO MONITOR THE REMAINDER OF THE SHIFT.
[2021-11-26 05:21] LABS: BASOPHILS ABSOLUTE AUTO 0.03 K/mm3 (0.00-0.23); BASOPHILS PERCENT AUTO 1 % (0-2); EOSINOPHILS ABSOLUTE AUTO 0.15 K/mm3 (0.00-0.68); EOSINOPHILS PERCENT AUTO 3 % (0-6); Hematocrit 31.4 % (33.0-51.0); Hemoglobin 10.6 g/dL (11.5-16.0); IMMATURE GRAN ABSOLUTE AUTO 0.02 K/mm3 (0.00-0.10); IMMATURE GRAN PERCENT AUTO 0 % (0-1); LYMPHOCYTES ABSOLUTE AUTO 1.25 K/mm3 (0.84-5.20); LYMPHOCYTES PERCENT AUTO 25 % (21-46); MONOCYTES PERCENT AUTO 12 % (4-13); Mean Corpuscular HGB 31.7 pg (26.0-34.0); Mean Corpuscular HGB Conc 33.8 g/dL (31.5-36.5); Mean Corpuscular Volume 94 fL (80-100); Mean Platelet Volume 10.8 fL (9.1-12.4); NEUTROPHILS ABSOLUTE AUTO 2.89 K/mm3 (1.96-9.15); NEUTROPHILS PERCENT AUTO 59 % (41-73); Platelet Count 157 K/mm3 (150-400); RDW Coefficient Variation 12.6 % (11.7-14.2); RDW Standard Deviation 43.8 fL (35.1-46.3); Red Blood Cell Count 3.34 M/mm3 (3.80-5.20); White Blood Cell Count 4.94 K/mm3 (4.00-11.30)
[2021-11-26 05:52] LABS: Albumin, Blood 3.1 g/dL (3.4-5.0); Anion Gap 6 mmol/L (6-16); Blood Urea Nitrogen 23 mg/dL (8-24); Bun/Creatinine Ratio 14.2 (12.0-20.0); CO2, Blood 29 mmol/L (21-32); Calcium, Blood 9.4 mg/dL (8.5-10.1); Chloride, Blood 109 mmol/L (98-108); Creatinine, Blood 1.62 mg/dL (0.40-1.00); Glomerular Filtration Rate 34 (60-); Glucose, Blood 135 mg/dL (70-99); Magnesium, Blood 1.8 mg/dL (1.6-2.4); Phosphorus, Blood 3.1 mg/dL (2.5-4.9); Potassium, Blood 3.8 mmol/L (3.5-5.5); Sodium, Blood 144 mmol/L (136-145)
[2021-11-26] MEDS ORDERED: AMLO5 PO (10:14)
[2021-11-26] MEDS ORDERED: FURO40 PO (10:14)
[2021-11-26] MEDS ORDERED: KLOR-CON M1010 MEQ PO (10:15)
--- NOTE | 2021-11-26 10:36 | NUR ---
DISCHARGE SUMMARY DISCHARGE INSTRUCTIONS, FOLLOW UP, AND MEDICATIONS GIVEN TO PT. PT VOICED COMPLETE UNDERSTANDING AND HAS NO QUESTIONS AT THIS TIME. PT TO WEBSITE PROGRAMMER MEDICATIONS AT PHARMACY. IV REMOVED WITH CATHETER TIP INTACT. AWAITING PT TO GET READY AND CALL RIDE. WILL CONTINUE TO MONITOR.
== END 2021-11-26 10:48 | disposition home or self-care (01) | DRG 684 ==
LOC: MEDS 11:35
PROVIDERS: Family Medicine; Hospitalist; Internal Medicine Nephrology; ADMIT Family Medicine
DX: N17.9 Acute kidney failure, unspecified (principal); J44.9 Chronic obstructive pulmonary disease, unspecified; F32.A Depression, unspecified; E11.69 Type 2 diabetes mellitus with other specified complication; E66.9 Obesity, unspecified; E78.5 Hyperlipidemia, unspecified; I10 Essential (primary) hypertension; K52.9 Noninfective gastroenteritis and colitis, unspecified; I48.91 Unspecified atrial fibrillation; E11.22 Type 2 diabetes mellitus with diabetic chronic kidney disease; N18.9 Chronic kidney disease, unspecified; Z90.49 Acquired absence of other specified parts of digestive tract; Z90.710 Acquired absence of both cervix and uterus; Z96.653 Presence of artificial knee joint, bilateral; Z88.8 Allergy status to other drugs, medicaments and biological substances; Z79.4 Long term (current) use of insulin; Z79.899 Other long term (current) drug therapy; E88.09 Other disorders of plasma-protein metabolism, not elsewhere classified; D64.9 Anemia, unspecified; E86.0 Dehydration; Z98.890 Other specified postprocedural states; F32.9 Major depressive disorder, single episode, unspecified
CPT/HCPCS: 36415; 74176; 80048; 80053; 80069; 81050; 82436; 82947; 83735; 83880; 84100; 84156; 84300; 85025; 87205; 94640; 94660; 94664; 94760; 94762; 97161; A9270; J1644; J7120

== ENCOUNTER → 2021-11-21 | Outpatient (CLI) | payer MEDICARE ==
[~2021-11-21] MED LIST changes: +ALBU8HFA2 INH; +AMLO5 PO; +ATENOLOL25 MG PO; +ATOR80 PO; +ATORVASTATIN CA80 M1 PO; +Accupril40 MG PO; +Aldactone50 MG PO; +BUDESONIDE1 MG/2 M1 INH; +EUTHYROX100 MCG PO; +EUTHYROX25 MCG PO; +Glucophage 500 mg PO; +ISOSORBIDE MONO60 MG PO; +K-Dur20 MEQ PO; +KLOR-CON M1010 MEQ PO; +Pulmicort INH; +SERT25 PO; +TIOT18 INH; +TORS10 PO; +TORSE20 PO; +XARELTO10 M1 PO
[2021-11-21 09:24] LABS: BASOPHILS ABSOLUTE AUTO 0.07 K/mm3 (0.00-0.23); BASOPHILS PERCENT AUTO 1 % (0-2); EOSINOPHILS PERCENT AUTO 1 % (0-6); Hematocrit 39.4 % (33.0-51.0); Hemoglobin 13.9 g/dL (11.5-16.0); IMMATURE GRAN ABSOLUTE AUTO 0.05 K/mm3 (0.00-0.10); IMMATURE GRAN PERCENT AUTO 1 % (0-1); LYMPHOCYTES PERCENT AUTO 11 % (21-46); MONOCYTES ABSOLUTE AUTO 1.09 K/mm3 (0.16-1.47); MONOCYTES PERCENT AUTO 11 % (4-13); Mean Corpuscular HGB 32.5 pg (26.0-34.0); Mean Corpuscular HGB Conc 35.3 g/dL (31.5-36.5); Mean Corpuscular Volume 92 fL (80-100); Mean Platelet Volume 10.7 fL (9.1-12.4); NEUTROPHILS ABSOLUTE AUTO 7.79 K/mm3 (1.96-9.15); NEUTROPHILS PERCENT AUTO 76 % (41-73); Platelet Count 196 K/mm3 (150-400); RDW Coefficient Variation 13.2 % (11.7-14.2); RDW Standard Deviation 44.3 fL (35.1-46.3); Red Blood Cell Count 4.28 M/mm3 (3.80-5.20)
[2021-11-21 09:48] LABS: Albumin/Globulin Ratio 1.3 (0.8-1.8); Bilirubin, Total 1.9 mg/dL (0.1-1.0); Bun/Creatinine Ratio 10.5 (12.0-20.0); Calcium, Blood 9.3 mg/dL (8.5-10.1); Creatinine, Blood 5.88 mg/dL (0.40-1.00); Globulin, Blood 3.1 g/dL (2.2-4.0); Potassium, Blood 4.5 mmol/L (3.5-5.5); Total Protein, Blood 7.1 g/dL (6.4-8.2)
== END | disposition home or self-care (01) ==
LOC: LAB 09:20 → LAB SHORT 09:20
PROVIDERS: Family Medicine
DX: E86.0 Dehydration (principal)
CPT/HCPCS: 80053; 85025

== ENCOUNTER 2021-11-28 06:21 | Inpatient (IN) | payer MEDICARE ==
[~2021-11-28] VITALS: Ht 162.6 cm; Wt 119.1 kg
[~2021-11-28 06:21] MED LIST changes: +ALBU8HFA2 INH; +AMLO5 PO; +ATENOLOL25 MG PO; +ATOR80 PO; +ATORVASTATIN CA80 M1 PO; +Accupril40 MG PO; +Aldactone50 MG PO; +BUDESONIDE1 MG/2 M1 INH; +EUTHYROX100 MCG PO; +EUTHYROX25 MCG PO; +Glucophage 500 mg PO; +ISOSORBIDE MONO60 MG PO; +K-Dur20 MEQ PO; +KLOR-CON M1010 MEQ PO; +Pulmicort INH; +SERT25 PO; +TIOT18 INH; +TORS10 PO; +TORSE20 PO; +XARELTO10 M1 PO
[2021-11-28 07:22] LABS: BASOPHILS ABSOLUTE AUTO 0.02 K/mm3 (0.00-0.23); BASOPHILS PERCENT AUTO 0 % (0-2); EOSINOPHILS ABSOLUTE AUTO 0.07 K/mm3 (0.00-0.68); EOSINOPHILS PERCENT AUTO 1 % (0-6); Hematocrit 31.3 % (33.0-51.0); Hemoglobin 10.8 g/dL (11.5-16.0); IMMATURE GRAN ABSOLUTE AUTO 0.04 K/mm3 (0.00-0.10); IMMATURE GRAN PERCENT AUTO 1 % (0-1); LYMPHOCYTES PERCENT AUTO 8 % (21-46); MONOCYTES PERCENT AUTO 10 % (4-13); Mean Corpuscular HGB 31.9 pg (26.0-34.0); Mean Corpuscular HGB Conc 34.5 g/dL (31.5-36.5); Mean Corpuscular Volume 92 fL (80-100); Mean Platelet Volume 10.5 fL (9.1-12.4); NEUTROPHILS ABSOLUTE AUTO 6.45 K/mm3 (1.96-9.15); NEUTROPHILS PERCENT AUTO 81 % (41-73); Platelet Count 160 K/mm3 (150-400); RDW Coefficient Variation 12.7 % (11.7-14.2); Red Blood Cell Count 3.39 M/mm3 (3.80-5.20); White Blood Cell Count 7.98 K/mm3 (4.00-11.30)
[2021-11-28 07:39] LABS: Albumin, Blood 3.4 g/dL (3.4-5.0); Bilirubin, Total 2.9 mg/dL (0.1-1.0); Bun/Creatinine Ratio 11.5 (12.0-20.0); Calcium, Blood 9.4 mg/dL (8.5-10.1); Creatinine, Blood 1.31 mg/dL (0.40-1.00); Globulin, Blood 3.3 g/dL (2.2-4.0); Potassium, Blood 3.6 mmol/L (3.5-5.5); Total Protein, Blood 6.7 g/dL (6.4-8.2)
[2021-11-28] MEDS ORDERED: Ventolin/Proventil INH (11:39)
[2021-11-28] MEDS ORDERED: AMLO10 PO (11:40)
[2021-11-28] MEDS ORDERED: ATENOLOL25 MG PO (11:42)
[2021-11-28] MEDS ORDERED: ATORVASTATIN CA80 M1 PO (11:43)
[2021-11-28] MEDS ORDERED: BUDESONIDE1 MG/2 M1 INH (11:44)
[2021-11-28] MEDS ORDERED: FUROSEMIDE40 MG PO (11:45)
[2021-11-28] MEDS ORDERED: Ipratropium Bromide (11:47)
[2021-11-28] MEDS ORDERED: Iprat-Albut 0.5-3(2. INH (11:48)
[2021-11-28] MEDS ORDERED: ISOSORBIDE MONO60 MG PO (11:50)
[2021-11-28] MEDS ORDERED: EUTHYROX25 MCG PO (11:51)
[2021-11-28] MEDS ORDERED: EUTHYROX100 MCG PO (11:52)
[2021-11-28] MEDS ORDERED: MAGNESIUM OXID400 M1 PO (11:53)
[2021-11-28] MEDS ORDERED: Glucophage 500 mg PO (11:55)
[2021-11-28] MEDS ORDERED: KLOR-CON 1010 ME1 PO (11:56)
[2021-11-28] MEDS ORDERED: Accupril40 MG PO (11:57)
[2021-11-28] MEDS ORDERED: XARELTO10 M1 PO (11:59)
[2021-11-28] MEDS ORDERED: SERT100 PO (12:00)
[2021-11-28] MEDS ORDERED: SERT25 PO (12:01)
[2021-11-28] MEDS ORDERED: Spiriva Respimat INH (12:03)
--- NOTE | 2021-11-28 13:00 | NUR ---
PT ADMITTED TO ROOM 336 FROM ED. ABLE TO TRANSFER SELF FROM GURNEY TO BED. APPEARS SOB WITH ACTIVITY BUT REPORTS IT HAS IMPROVED SINCE SHE ARRIVED TO HOSPITAL. ROOM ARRANGED ACCORDING TO HER COMFORT AND PT SETTLED.
[2021-11-28] MEDS ORDERED: GLUCOPHAGE1000 M1 PO (13:04)
--- NOTE | 2021-11-28 18:41 | NUR ---
SHIFT SUMMARY PT HAS REMAINED SITTING ON SIDE OF BED OR IN CHAIR. STATES HER RESP IMPROVED SINCE ARRIVAL TO HOSPITAL. INDEPENDENT TO BATHROOM. O2 AT 5L/M. WILL REPORT CONDITION TO ONCOMING SHIFT.
[2021-11-29 05:18] LABS: BASOPHILS ABSOLUTE AUTO 0.02 K/mm3 (0.00-0.23); BASOPHILS PERCENT AUTO 0 % (0-2); EOSINOPHILS ABSOLUTE AUTO 0.04 K/mm3 (0.00-0.68); EOSINOPHILS PERCENT AUTO 1 % (0-6); Hematocrit 31.9 % (33.0-51.0); IMMATURE GRAN ABSOLUTE AUTO 0.04 K/mm3 (0.00-0.10); IMMATURE GRAN PERCENT AUTO 1 % (0-1); LYMPHOCYTES ABSOLUTE AUTO 0.89 K/mm3 (0.84-5.20); LYMPHOCYTES PERCENT AUTO 11 % (21-46); MONOCYTES ABSOLUTE AUTO 0.77 K/mm3 (0.16-1.47); MONOCYTES PERCENT AUTO 10 % (4-13); Mean Corpuscular HGB 31.7 pg (26.0-34.0); Mean Corpuscular HGB Conc 34.5 g/dL (31.5-36.5); Mean Corpuscular Volume 92 fL (80-100); Mean Platelet Volume 10.5 fL (9.1-12.4); NEUTROPHILS ABSOLUTE AUTO 6.22 K/mm3 (1.96-9.15); NEUTROPHILS PERCENT AUTO 78 % (41-73); Platelet Count 186 K/mm3 (150-400); RDW Coefficient Variation 12.6 % (11.7-14.2); Red Blood Cell Count 3.47 M/mm3 (3.80-5.20); White Blood Cell Count 7.98 K/mm3 (4.00-11.30)
[2021-11-29 05:52] LABS: Albumin, Blood 3.6 g/dL (3.4-5.0); Bilirubin, Total 1.9 mg/dL (0.1-1.0); Bun/Creatinine Ratio 19.4 (12.0-20.0); Calcium, Blood 9.5 mg/dL (8.5-10.1); Creatinine, Blood 1.24 mg/dL (0.40-1.00); Globulin, Blood 3.5 g/dL (2.2-4.0); Magnesium, Blood 2.1 mg/dL (1.6-2.4); Potassium, Blood 3.2 mmol/L (3.5-5.5); Total Protein, Blood 7.1 g/dL (6.4-8.2)
--- NOTE | 2021-11-29 06:45 | NUR ---
SHIFT SUMMARY NOC: PT ON 3L NC WITH CONTINUOUS PULSE OX WHEN AWAKE. CPAP WITH 3L AT HS. PT AFIB 90-110'S. SBA TO BATHROOM. NO ACUTE EVENTS.
[2021-11-29 14:50] LABS: Albumin, Blood 3.4 g/dL (3.4-5.0); Anion Gap 10 mmol/L (6-16); Blood Urea Nitrogen 26 mg/dL (8-24); Bun/Creatinine Ratio 19.7 (12.0-20.0); CO2, Blood 27 mmol/L (21-32); Calcium, Blood 9.2 mg/dL (8.5-10.1); Chloride, Blood 103 mmol/L (98-108); Creatinine, Blood 1.32 mg/dL (0.40-1.00); Glomerular Filtration Rate 43 (60-); Glucose, Blood 233 mg/dL (70-99); Phosphorus, Blood 1.9 mg/dL (2.5-4.9); Potassium, Blood 3.2 mmol/L (3.5-5.5); Sodium, Blood 140 mmol/L (136-145)
--- NOTE | 2021-11-29 18:28 | NUR ---
SHIFT SUMMARY; PATIENT SPENT GOOD PART OF THE DAY WITH A HEART RATE BETWEEN 130 TO 170. OK'D ONE TIME DOSE IV CARDIZEM WITH LITTLE CHANGE IN HEART RATE. THEN HE ORDERED 30MG PO CARDZEM. AT 1830 HEART RATE STILL TACHY AT 150 WHEN SHE AMBULATES TO THE BATHROOM. SHE IS ASYMPTOMATIC. NO CHEST PAIN OR DISCOMFORT NOTED. HER APPETITE IS GOOD AND SHE HAS A PLEASANT AFFECT AND IS COOPERATVE WITH CARE. HER DAUGHTER FROM [place] WILL BE HERE THIS WEEKEND.
--- NOTE | 2021-11-30 05:08 | NUR ---
SHIFT SUMMARY 71 YR F ADMITTED ON 11/29/21 FOR FLUID OVERLOAD. DNR. PT HR HAS BEEN MUCH BETTERTHIS SHIFT RUNNING SR IN THE 80'S-90'S CONSITENTLY. NO ACUTE CHANGES OTHERWISE. PT IS USING HER CPAP AT NIGHT AND IS ABLE TO TAKE IT ON AND OFF HERSELF. SHE IS INDEPENDANT IN THE ROOM AND IS PLEASANT AND COOPERATIVE W/ CARE.
[2021-11-30 07:48] LABS: Albumin, Blood 3.1 g/dL (3.4-5.0); Anion Gap 5 mmol/L (6-16); Blood Urea Nitrogen 24 mg/dL (8-24); Bun/Creatinine Ratio 20.5 (12.0-20.0); CO2, Blood 29 mmol/L (21-32); Calcium, Blood 8.8 mg/dL (8.5-10.1); Chloride, Blood 106 mmol/L (98-108); Creatinine, Blood 1.17 mg/dL (0.40-1.00); Glomerular Filtration Rate 50 (60-); Glucose, Blood 136 mg/dL (70-99); Phosphorus, Blood 1.9 mg/dL (2.5-4.9); Potassium, Blood 3.2 mmol/L (3.5-5.5); Sodium, Blood 140 mmol/L (136-145)
--- NOTE | 2021-11-30 08:00 | NUR ---
pt sitting on the side of the bed eating breakfast, a/ox3, pleasant and cooperative with care, follows commands well, denies pain, states she feels ok, lungs are dim t/o, faint wheeze in bases, resp even and unlaobred, no cough noted, hrirr, tele in place running afib per monitor, see strip, no edema noted, ppp+2, cap refill <3sec, vs stable, afebrile, iv site to lfa site is clear and patent, btx4, abd flat soft nontender, void without diff, skin c/w/d, maew, shweta, call light in reach.
[2021-11-30] MEDS ORDERED: K-Phos Origina500 MG PO (15:32)
[2021-11-30] MEDS ORDERED: SPIR25 PO (15:33)
[2021-11-30] MEDS ORDERED: DILT120 PO (15:33)
[2021-11-30] MEDS ORDERED: VITAMIN D31000 UNI1 PO (15:34)
--- NOTE | 2021-11-30 17:03 | NUR ---
pt has been discharged to home, new medications faxed to [facility], iv removed intact, went over her instructions and follow up appts, she verbalized understanding. left via wheelchair with snuff maker when her ride arrived with all her belongings.
== END 2021-11-30 16:51 | disposition home or self-care (01) | DRG 291 ==
LOC: ER 06:21 → MEDS 06:22
PROVIDERS: Emergency Medicine; Internal Medicine Endocrinology, Diabetes & Metabolism; ADMIT Family Medicine
DX: I11.0 Hypertensive heart disease with heart failure (principal); I50.33 Acute on chronic diastolic (congestive) heart failure; J96.21 Acute and chronic respiratory failure with hypoxia; N17.9 Acute kidney failure, unspecified; J44.1 Chronic obstructive pulmonary disease with (acute) exacerbation; I48.19 Other persistent atrial fibrillation; Z66 Do not resuscitate; E87.6 Hypokalemia; T50.2X5A Adverse effect of carbonic-anhydrase inhibitors, benzothiadiazides and other diuretics, initial encounter; R80.9 Proteinuria, unspecified; E11.65 Type 2 diabetes mellitus with hyperglycemia; F32.A Depression, unspecified; E78.5 Hyperlipidemia, unspecified; Z96.653 Presence of artificial knee joint, bilateral; E80.6 Other disorders of bilirubin metabolism; D64.9 Anemia, unspecified; E83.42 Hypomagnesemia; Z90.710 Acquired absence of both cervix and uterus; Z90.49 Acquired absence of other specified parts of digestive tract; Z87.891 Personal history of nicotine dependence; Z79.899 Other long term (current) drug therapy; Z79.51 Long term (current) use of inhaled steroids; Z79.02 Long term (current) use of antithrombotics/antiplatelets; Z79.52 Long term (current) use of systemic steroids; Z79.01 Long term (current) use of anticoagulants
CPT/HCPCS: 36415; 71045; 80053; 80069; 82306; 82947; 83036; 83735; 83880; 84484; 85025; 93005; 93010; 93308; 93321; 94640; 94644; 94664; 94762; 96365; 96366; 96374; 96375; 96376; 99285-25; A9270; G0378; J1940; J2060; J2930; J3475; J7626

== ENCOUNTER → 2021-12-10 | Outpatient (CLI) | payer MEDICARE ==
[~2021-12-10] MED LIST changes: +DILT120 PO; +FUROSEMIDE40 MG PO; +Iprat-Albut 0.5-3(2. INH; +Ipratropium Bromide; +K-Phos Origina500 MG PO; +KLOR-CON 1010 ME1 PO; +MAGNESIUM OXID400 M1 PO; +SPIR25 PO; +Spiriva Respimat INH; +VITAMIN D31000 UNI1 PO; +Ventolin/Proventil INH
[2021-12-10 10:23] LABS: Calcium, Urine 7.4 mg/dL (< 17.5); Calcium, Urine Calculation 133.2 mg/24hrs (42.0-353.0)
== END | disposition home or self-care (01) ==
LOC: LAB SHORT 06:05 → LAB 06:05 → EDSTATUS 12-06 13:15 → LAB FUT 12-06 13:15
PROVIDERS: Family Medicine
DX: R89.9 Unspecified abnormal finding in specimens from other organs, systems and tissues (principal)
CPT/HCPCS: 81050; 82340

== ENCOUNTER → 2021-12-27 | Outpatient (CLI) | payer MEDICARE ==
[2021-12-27 15:09] LABS: BASOPHILS ABSOLUTE AUTO 0.09 K/mm3 (0.00-0.23); BASOPHILS PERCENT AUTO 1 % (0-2); EOSINOPHILS ABSOLUTE AUTO 0.15 K/mm3 (0.00-0.68); EOSINOPHILS PERCENT AUTO 1 % (0-6); Hematocrit 42.6 % (33.0-51.0); Hemoglobin 15.5 g/dL (11.5-16.0); IMMATURE GRAN ABSOLUTE AUTO 0.06 K/mm3 (0.00-0.10); IMMATURE GRAN PERCENT AUTO 1 % (0-1); LYMPHOCYTES ABSOLUTE AUTO 1.68 K/mm3 (0.84-5.20); LYMPHOCYTES PERCENT AUTO 15 % (21-46); MONOCYTES ABSOLUTE AUTO 1.19 K/mm3 (0.16-1.47); MONOCYTES PERCENT AUTO 11 % (4-13); Mean Corpuscular HGB 31.7 pg (26.0-34.0); Mean Corpuscular HGB Conc 36.4 g/dL (31.5-36.5); Mean Corpuscular Volume 87 fL (80-100); Mean Platelet Volume 10.1 fL (9.1-12.4); NEUTROPHILS ABSOLUTE AUTO 8.03 K/mm3 (1.96-9.15); NEUTROPHILS PERCENT AUTO 72 % (41-73); Platelet Count 293 K/mm3 (150-400); RDW Coefficient Variation 12.8 % (11.7-14.2); RDW Standard Deviation 39.8 fL (35.1-46.3); Red Blood Cell Count 4.89 M/mm3 (3.80-5.20)
[2021-12-27 15:13] LABS: Bun/Creatinine Ratio 14.4 (12.0-20.0); Calcium, Blood 11.7 mg/dL (8.5-10.1); Creatinine, Blood 1.74 mg/dL (0.40-1.00); Potassium, Blood 4.4 mmol/L (3.5-5.5)
== END | disposition home or self-care (01) ==
LOC: LAB 15:05 → LAB SHORT 15:05
PROVIDERS: Chiropractor
DX: E86.0 Dehydration (principal); R10.32 Left lower quadrant pain
CPT/HCPCS: 80048; 85025; 87077; 87086; 87186

== ENCOUNTER → 2021-12-29 | Outpatient (CLI) | payer MEDICARE ==
[2021-12-29 13:36] LABS: Bun/Creatinine Ratio 15.7 (12.0-20.0); Calcium, Blood 10.8 mg/dL (8.5-10.1); Creatinine, Blood 1.53 mg/dL (0.40-1.00); Potassium, Blood 3.8 mmol/L (3.5-5.5)
== END | disposition home or self-care (01) ==
LOC: LAB SHORT 13:28
PROVIDERS: Physician Assistant
DX: R79.89 Other specified abnormal findings of blood chemistry (principal)
CPT/HCPCS: 80048

== ENCOUNTER → 2022-01-14 | Outpatient (CLI) | payer MEDICARE ==
[2022-01-14 10:13] LABS: Albumin, Blood 4.1 g/dL (3.4-5.0); Albumin/Globulin Ratio 1.2 (0.8-1.8); Bilirubin, Total 0.9 mg/dL (0.1-1.0); Bun/Creatinine Ratio 14.7 (12.0-20.0); Calcium, Blood 10.4 mg/dL (8.5-10.1); Creatinine, Blood 1.36 mg/dL (0.40-1.00); Globulin, Blood 3.3 g/dL (2.2-4.0); Potassium, Blood 4.2 mmol/L (3.5-5.5); Total Protein, Blood 7.4 g/dL (6.4-8.2)
== END | disposition home or self-care (01) ==
LOC: LAB SHORT 09:57 → LAB 09:57
PROVIDERS: Chiropractor
DX: R11.2 Nausea with vomiting, unspecified (principal)
CPT/HCPCS: 80053

== ENCOUNTER → 2022-08-11 | Outpatient (CLI) | payer MEDICARE ==
[2022-08-11 14:24] LABS: Protein, Urine Quantitative 10.7 mg/dL (0.0-11.9)
== END ==
LOC: LAB 12:16 → LAB SHORT 12:16
PROVIDERS: Internal Medicine Nephrology
DX: N18.30 Chronic kidney disease, stage 3 unspecified (principal); D63.1 Anemia in chronic kidney disease; R80.9 Proteinuria, unspecified
CPT/HCPCS: 81050; 84156

== ENCOUNTER 2022-10-22 06:15 | Day surgery (SDC) | payer MEDICARE ==
[~2022-10-22] VITALS: Ht 162.6 cm; Wt 111.8 kg
--- NOTE | 2022-10-22 06:44 | NUR ---
PT STATES DIFFICULITY WAKING AFTER KNEE PROCEEDURE
[2022-10-22] MEDS ORDERED: TORSE20 PO (07:03)
--- NOTE | 2022-10-22 07:29 | NUR ---
10/22/22 0729 Inez Wilson PT COMFORTABLE IN BED, NO QUESTIONS OR CONCERNS AT THIS TIME. REPORT GIVEN TO ELYSIA EARLY AND ELYSIA SOLIZ
--- NOTE | 2022-10-22 08:27 | NUR ---
10/22/22 0827 Marisela Meza 5ML OF LIDOCAINE 2% WITH EPI 1:100,000 MIXED AND VERIFIED WITH 5ML OF NORMAL SALINE TO MAKE 10ML OF LIDOCAINE 1% WITH EPI 1:200,000 FOR INJECTION AT [facility] BY DR PALACIOS.
--- NOTE | 2022-10-22 09:38 | NUR ---
10/22/22 0937 ROMA HARPER STUDENT NURSE, DIPAK MAIER ASSISTING WITH CARE.
--- NOTE | 2022-10-22 10:27 | NUR ---
10/22/22 1027 ELLIOTT MALLORY PT STATES THAT THROAT FEELS LIKE SHE NEES TO CLEAR IN/ STINGS "NOT PAINFUL, JUST UNCOMFORTABLE" . PT STATES SHE DOESN' T NEED ANY PAIN MEDS AT THIS TIME.
[2022-10-22 10:29] VITALS: BP 157/90
== END 2022-10-22 11:11 | disposition home or self-care (01) ==
LOC: ORSCSDS 06:15
PROVIDERS: Otolaryngology
PROC: 0GBM0ZZ Excision of Left Superior Parathyroid Gland, Open Approach (ICD-10-PCS; principal; 2022-10-22 07:30)
DX: E21.0 Primary hyperparathyroidism (principal); D35.1 Benign neoplasm of parathyroid gland; I25.10 Atherosclerotic heart disease of native coronary artery without angina pectoris; I50.9 Heart failure, unspecified; Z99.81 Dependence on supplemental oxygen; E11.9 Type 2 diabetes mellitus without complications; E66.01 Morbid (severe) obesity due to excess calories; Z68.41 Body mass index [BMI] 40.0-44.9, adult; Z79.899 Other long term (current) drug therapy; Z79.01 Long term (current) use of anticoagulants
CPT/HCPCS: 82947; 83970; 88305; 88331; J1100; J2370; J2405; J2704; J3010; J7120

== ENCOUNTER 2023-12-24 13:18 | Day surgery (SDC) | payer MEDICARE ==
[~2023-12-24] VITALS: Ht 162.6 cm; Wt 107.5 kg
[~2023-12-24 13:18] MED LIST changes: +Atropine Sulfate 0.1 MG/ML 10ML SYR ONE; +Glycopyrrolate 0.2 MG/ML 1MLVIAL ONE; +Lactated Ringer's 0 ML IV ONE; +Lactated Ringer's 1,000 ML IV ONE; +Lidocaine 2% 5 ML SDV ONE; +Lidocaine HCl 1% 30 ML SDV ONE; +Methylene Blue 1% 100 MG/10 ML VIAL ONE; +Ondansetron HCl 2 MG / ML 2ML Vial ONE; +ePHEDrine Sulfate 50 MG/ML 1ML Injection ONE; +propofoL 100 ML IV ONE
[2023-12-24] MEDS ORDERED: ePHEDrine Sulfate 50 MG/ML 1ML Injection ONE (13:19)
[2023-12-24] MEDS ORDERED: Atropine Sulfate 0.1 MG/ML 10ML SYR ONE (13:19)
[2023-12-24] MEDS ORDERED: GABA300 (13:48)
[2023-12-24] MEDS ORDERED: FARXIGA10 MG (13:48)
[2023-12-24] MEDS ORDERED: DULERA 100 MCG/13 GM (13:48)
[2023-12-24] MEDS ORDERED: MATZIM LA360 MG (13:49)
[2023-12-24] MEDS ORDERED: NITR.4SL (13:49)
[2023-12-24] MEDS ORDERED: NYSTRIT (13:49)
[2023-12-24] MEDS ORDERED: XARELTO20 MG (13:50)
[2023-12-24] MEDS ORDERED: ALBU90OI (13:50)
[2023-12-24] MEDS ORDERED: VITAMIN B122500 MC1 (13:51)
[2023-12-24] MEDS ORDERED: VITAMIN D31250 MC2 (13:51)
[2023-12-24] MEDS ORDERED: LEVSOD100 (13:52)
[2023-12-24] MEDS ORDERED: Lactated Ringer's 1,000 ML IV ONE (14:00)
--- NOTE | 2023-12-24 14:13 | NUR ---
12/24/23 1413 Tereza Ireland RN CHARTING PRE-OP VITALS IN OR. RN LATE ENTRY FOR VITALS FOR MD IVANA AND ANESTHESIA AWARE OF TEMP. READING AT 95.3, RN OFFERED TO RETAKE VITALS DUE TO TEMPTURE OUT OF NORMAL RANGE. ANESTHESIA STATED, "WE CAN TAKE ONE LATER, WE DO NOT NEED TO WORRY ABOUT THAT RIGHT NOW."
--- NOTE | 2023-12-24 14:26 | NUR ---
12/24/23 1426 Tereza Ireland RN RECHECKED TEMP IN OR. TEMP 97.3.
[2023-12-24 15:40] VITALS: BP 147/88
== END 2023-12-24 15:17 | disposition home or self-care (01) ==
LOC: ORSCSDS 13:18
PROVIDERS: Surgery
PROC: 0DBN8ZX Excision of Sigmoid Colon, Via Natural or Artificial Opening Endoscopic, Diagnostic (ICD-10-PCS; principal; 2023-12-24 13:00)
PROC: 0DB68ZX Excision of Stomach, Via Natural or Artificial Opening Endoscopic, Diagnostic (ICD-10-PCS; principal; 2023-12-24 13:00)
DX: R19.5 Other fecal abnormalities (principal); D50.9 Iron deficiency anemia, unspecified; K29.70 Gastritis, unspecified, without bleeding; K57.30 Diverticulosis of large intestine without perforation or abscess without bleeding; K31.7 Polyp of stomach and duodenum; E11.22 Type 2 diabetes mellitus with diabetic chronic kidney disease; N18.9 Chronic kidney disease, unspecified; I25.10 Atherosclerotic heart disease of native coronary artery without angina pectoris; E66.9 Obesity, unspecified; Z68.41 Body mass index [BMI] 40.0-44.9, adult; Z79.01 Long term (current) use of anticoagulants; Z79.899 Other long term (current) drug therapy
CPT/HCPCS: 82947; 88305; 88342; J0461; J2405; J2704; J7120; Q9968

== ENCOUNTER 2024-03-16 17:56 | Emergency (ER) | payer MEDICARE ==
[~2024-03-16] VITALS: Ht 162.6 cm; Wt 117.0 kg
[~2024-03-16 17:56] MED LIST changes: +ALBU90OI; -Atropine Sulfate 0.1 MG/ML 10ML SYR ONE; +DULERA 100 MCG/13 GM; +FARXIGA10 MG; +GABA300; -Glycopyrrolate 0.2 MG/ML 1MLVIAL ONE; +LEVSOD100; -Lactated Ringer's 0 ML IV ONE; -Lactated Ringer's 1,000 ML IV ONE; -Lidocaine 2% 5 ML SDV ONE; -Lidocaine HCl 1% 30 ML SDV ONE; +MATZIM LA360 MG; -Methylene Blue 1% 100 MG/10 ML VIAL ONE; +NITR.4SL; +NYSTRIT; -Ondansetron HCl 2 MG / ML 2ML Vial ONE; +VITAMIN B122500 MC1; +VITAMIN D31250 MC2; +XARELTO20 MG; -ePHEDrine Sulfate 50 MG/ML 1ML Injection ONE; -propofoL 100 ML IV ONE
[2024-03-16] MEDS ORDERED: Ondansetron HCl 2 MG / ML 2ML Vial IV PRN (18:30)
[2024-03-16 19:00] LABS: BASOPHILS ABSOLUTE AUTO 0.03 K/mm3 (0.00-0.23); BASOPHILS PERCENT AUTO 1 % (0-2); EOSINOPHILS ABSOLUTE AUTO 0.16 K/mm3 (0.00-0.68); EOSINOPHILS PERCENT AUTO 3 % (0-6); Hematocrit 44.5 % (33.0-51.0); Hemoglobin 13.8 g/dL (11.5-16.0); IMMATURE GRAN ABSOLUTE AUTO 0.01 K/mm3 (0.00-0.10); IMMATURE GRAN PERCENT AUTO 0 % (0-1); LYMPHOCYTES PERCENT AUTO 13 % (21-46); MONOCYTES ABSOLUTE AUTO 0.67 K/mm3 (0.16-1.47); MONOCYTES PERCENT AUTO 12 % (4-13); Mean Corpuscular HGB 27.1 pg (26.0-34.0); Mean Corpuscular Volume 87 fL (80-100); Mean Platelet Volume 9.7 fL (9.1-12.4); NEUTROPHILS ABSOLUTE AUTO 3.87 K/mm3 (1.96-9.15); NEUTROPHILS PERCENT AUTO 71 % (41-73); Platelet Count 208 K/mm3 (150-400); RDW Coefficient Variation 19.7 % (11.7-14.2); RDW Standard Deviation 63.5 fL (35.1-46.3); Red Blood Cell Count 5.09 M/mm3 (3.80-5.20); White Blood Cell Count 5.44 K/mm3 (4.00-11.30)
[2024-03-16] MEDS ORDERED: Ipratropium/Albuterol SulF 2.5-0.5MG/3 ML Amp INH ONE (19:00)
[2024-03-16 19:15] LABS: Albumin, Blood 3.5 g/dL (3.4-5.0); Albumin/Globulin Ratio 0.9 (0.8-1.8); Bilirubin, Total 0.6 mg/dL (0.1-1.0); Bun/Creatinine Ratio 18.5 (12.0-20.0); Calcium, Blood 9.5 mg/dL (8.5-10.1); Creatinine, Blood 0.92 mg/dL (0.40-1.00); Globulin, Blood 3.8 g/dL (2.2-4.0); Potassium, Blood 3.8 mmol/L (3.5-5.5); Total Protein, Blood 7.3 g/dL (6.4-8.2)
[2024-03-16 20:30] VITALS: BP 156/87
[2024-03-16 20:55] LABS: Influenza A, PCR NEGATIVE (NEGATIVE); Influenza B, PCR NEGATIVE (NEGATIVE); Resp Syncytial Virus, PCR NEGATIVE (NEGATIVE); SARS-Cov-2 (COVID-19) PCR, MMC NEGATIVE (NEGATIVE)
== END 2024-03-16 22:21 | disposition home or self-care (01) ==
LOC: ER 17:56
PROVIDERS: Student in an Organized Health Care Education/Training Program
DX: J45.901 Unspecified asthma with (acute) exacerbation (principal); R07.89 Other chest pain; J44.9 Chronic obstructive pulmonary disease, unspecified; I11.0 Hypertensive heart disease with heart failure; I50.9 Heart failure, unspecified; E11.9 Type 2 diabetes mellitus without complications; E03.9 Hypothyroidism, unspecified; I48.91 Unspecified atrial fibrillation; Z99.81 Dependence on supplemental oxygen; Z88.1 Allergy status to other antibiotic agents; Z79.84 Long term (current) use of oral hypoglycemic drugs; Z79.51 Long term (current) use of inhaled steroids; Z79.01 Long term (current) use of anticoagulants; Z79.890 Hormone replacement therapy; Z79.899 Other long term (current) drug therapy
CPT/HCPCS: 0241U; 71046; 80053; 83690; 83880; 84484; 85025; 93005; 93010; 94640; 94664; 99285-25

== ENCOUNTER 2024-04-26 13:48 | Day surgery (SDC) | payer MEDICARE ==
[~2024-04-26] VITALS: Ht 162.6 cm; Wt 108.2 kg
[~2024-04-26 13:48] MED LIST changes: +Lactated Ringer's 1,000 ML IV ONE
[2024-04-26] MEDS ORDERED: Lactated Ringer's 1,000 ML IV ONE (15:01)
[2024-04-26] MEDS ORDERED: FentaNYL Citrate 50 MCG/ML 2 ML Injection ONE (15:15)
[2024-04-26] MEDS ORDERED: propofoL 50 ML IV ONE (15:15)
[2024-04-26 16:14] VITALS: BP 157/100
== END 2024-04-26 16:12 | disposition home or self-care (01) ==
LOC: ORSCSDS 13:48
PROVIDERS: Surgery
PROC: 0DB68ZX Excision of Stomach, Via Natural or Artificial Opening Endoscopic, Diagnostic (ICD-10-PCS; principal; 2024-04-26 15:15)
DX: K29.51 Unspecified chronic gastritis with bleeding (principal); D50.9 Iron deficiency anemia, unspecified; E11.22 Type 2 diabetes mellitus with diabetic chronic kidney disease; I12.9 Hypertensive chronic kidney disease with stage 1 through stage 4 chronic kidney disease, or unspecified chronic kidney disease; N18.9 Chronic kidney disease, unspecified; I48.91 Unspecified atrial fibrillation; G47.33 Obstructive sleep apnea (adult) (pediatric); E03.9 Hypothyroidism, unspecified; Z79.01 Long term (current) use of anticoagulants; Z79.84 Long term (current) use of oral hypoglycemic drugs; Z79.899 Other long term (current) drug therapy
CPT/HCPCS: 82947; 88305; 88313; 88342; J2704; J3010; J7120

== ENCOUNTER 2024-06-27 03:36 | Day surgery (SDC) | payer MEDICARE ==
[~2024-06-27 03:36] MED LIST changes: -Lactated Ringer's 1,000 ML IV ONE
[2024-06-27] MEDS ORDERED: ZOLEDRONIC ACID/MANNITOL-WATER 100 ML IV SCH (13:55)
[2024-06-27 16:20] VITALS: BP 144/76
[2024-06-27 17:14] VITALS: BP 142/80
== END 2024-06-27 17:15 | disposition home or self-care (01) ==
LOC: ATC 03:36
DX: M81.0 Age-related osteoporosis without current pathological fracture (principal); E03.9 Hypothyroidism, unspecified; E78.5 Hyperlipidemia, unspecified; E21.3 Hyperparathyroidism, unspecified; E55.9 Vitamin D deficiency, unspecified; E04.2 Nontoxic multinodular goiter; I48.91 Unspecified atrial fibrillation; E11.22 Type 2 diabetes mellitus with diabetic chronic kidney disease; I12.9 Hypertensive chronic kidney disease with stage 1 through stage 4 chronic kidney disease, or unspecified chronic kidney disease; N18.31 Chronic kidney disease, stage 3a
CPT/HCPCS: 96374; J3489

== ENCOUNTER 2024-10-07 13:53 | Inpatient (IN) | payer MEDICARE ==
[~2024-10-07] VITALS: Ht 162.6 cm; Wt 107.1 kg
[~2024-10-07 13:53] MED LIST changes: -GABA300; +GABA300 PO; -XARELTO20 MG
[2024-10-07 14:23] LABS: Hematocrit 27.2 % (33.0-51.0); Mean Corpuscular HGB 25.7 pg (26.0-34.0); Mean Corpuscular HGB Conc 29.4 g/dL (31.5-36.5); Mean Corpuscular Volume 88 fL (80-100); Mean Platelet Volume 9.7 fL (9.1-12.4); NRBC ABSOLUTE 0.12 K/mm3 (0.00-0.02); NRBC Auto 1.3 /100 WBC (0.0-0.2); Platelet Count 326 K/mm3 (150-400); RDW Coefficient Variation 17.5 % (11.7-14.2); RDW Standard Deviation 52.1 fL (35.1-46.3); Red Blood Cell Count 3.11 M/mm3 (3.80-5.20)
[2024-10-07 14:43] LABS: Albumin, Blood 3.2 g/dL (3.4-5.0); Albumin/Globulin Ratio 0.9 (0.8-1.8); Bilirubin, Total 0.5 mg/dL (0.1-1.0); Bun/Creatinine Ratio 14.2 (12.0-20.0); Calcium, Blood 9.2 mg/dL (8.5-10.1); Creatinine, Blood 0.99 mg/dL (0.40-1.00); Globulin, Blood 3.5 g/dL (2.2-4.0); Potassium, Blood 3.5 mmol/L (3.5-5.5); Total Protein, Blood 6.7 g/dL (6.4-8.2)
[2024-10-07 14:45] LABS: BAND PERCENT MAN 2 % (0-8); BASOPHILS PERCENT MAN 0 % (0-2); EOSINOPHILS ABSOLUTE MAN 0.18 K/mm3 (0.00-0.68); EOSINOPHILS PERCENT MAN 2 % (0-6); LYMPHOCYTES ABSOLUTE MAN 0.83 K/mm3 (0.84-5.20); LYMPHOCYTES PERCENT MAN 9 % (21-46); METAMYELOCYTE ABSOLUTE MAN 0.09 K/mm3 (0.00-0.00); METAMYELOCYTE PERCENT MAN 1 % (0-0); MONOCYTES ABSOLUTE MAN 0.18 K/mm3 (0.16-1.47); MONOCYTES PERCENT MAN 2 % (4-13); MYELOCYTE ABSOLUTE MAN 0.18 K/mm3 (0.00-0.00); MYELOCYTE PERCENT MAN 2 % (0-0); NEUTROPHILS ABSOLUTE MAN 7.81 K/mm3 (1.96-9.15); SEG NEUTROPHILS PERCENT MAN 82 % (41-73); TOTAL CELLS COUNTED 100
[2024-10-07] MEDS ORDERED: Ipratropium Bromide INH 0.02% 0.5 mg/2.5ML Vial INH SCH (15:45)
[2024-10-07] MEDS ORDERED: Albuterol 2.5 MG/3 ML VIAL INH SCH ×2 (15:45→17:10)
[2024-10-07] MEDS ORDERED: MethylPREDNISolone Sod Succ 125 MG Vial IV ONE (17:10)
[2024-10-07] MEDS ORDERED: Albuterol 2.5 MG/3 ML VIAL INH PRN (19:45)
[2024-10-07] MEDS ORDERED: Ipratropium/Albuterol SulF 2.5-0.5MG/3 ML Amp INH SCH (19:45)
[2024-10-07] MEDS ORDERED: Ondansetron HCl 2 MG / ML 2ML Vial IV PRN (19:45)
[2024-10-07] MEDS ORDERED: Diltiazem HCl 5 MG / ML 5ML Vial IV PRN (20:00)
[2024-10-07] MEDS ORDERED: Furosemide 10 MG/ML 4ML Vial IV SCH (20:00)
[2024-10-07] MEDS ORDERED: Azithromycin 500 MG in NS 250 ML IV SCH (21:00)
[2024-10-07 22:33] VITALS: BP 148/85
[2024-10-07] MEDS ORDERED: LORA10ER PO (22:59)
[2024-10-07] MEDS ORDERED: ACET500 PO (23:01)
[2024-10-07] MEDS ORDERED: EUTHYROX50 MCG PO (23:05)
[2024-10-07] MEDS ORDERED: Synthroid200 MCG PO (23:06)
[2024-10-07] MEDS ORDERED: OMEP20ER PO (23:17)
[2024-10-07] MEDS ORDERED: MONT10T PO (23:24)
[2024-10-08] MEDS ORDERED: MethylPREDNISolone Sod Succ 125 MG Vial IV SCH
[2024-10-08] MEDS ORDERED: Ipratropium/Albuterol SulF 2.5-0.5MG/3 ML Amp INH SCH (00:08)
[2024-10-08 03:57] VITALS: BP 159/90
[2024-10-08 05:57] LABS: Hematocrit 27.5 % (33.0-51.0); Hemoglobin 8.1 g/dL (11.5-16.0); Mean Corpuscular HGB 25.9 pg (26.0-34.0); Mean Corpuscular HGB Conc 29.5 g/dL (31.5-36.5); Mean Corpuscular Volume 88 fL (80-100); Mean Platelet Volume 9.5 fL (9.1-12.4); NRBC ABSOLUTE 0.04 K/mm3 (0.00-0.02); NRBC Auto 0.4 /100 WBC (0.0-0.2); Platelet Count 297 K/mm3 (150-400); RDW Coefficient Variation 17.9 % (11.7-14.2); RDW Standard Deviation 52.5 fL (35.1-46.3); Red Blood Cell Count 3.13 M/mm3 (3.80-5.20); White Blood Cell Count 10.38 K/mm3 (4.00-11.30)
[2024-10-08 06:48] LABS: Bun/Creatinine Ratio 17.1 (12.0-20.0); Calcium, Blood 9.2 mg/dL (8.5-10.1); Creatinine, Blood 0.88 mg/dL (0.40-1.00); Potassium, Blood 3.5 mmol/L (3.5-5.5)
[2024-10-08 07:49] VITALS: BP 138/66
[2024-10-08] MEDS ORDERED: Rivaroxaban 10 MG Tab PO SCH (09:00)
[2024-10-08] MEDS ORDERED: Miconazole Nitrate 2% 85 GM PWD TOP SCH (09:00)
[2024-10-08 12:22] VITALS: BP 145/66
[2024-10-08 15:53] VITALS: BP 150/64
--- NOTE | 2024-10-08 16:10 | NUR ---
SHIFT SUMMARY: NO ACUTE CHANGES T/O SHIFT. PATIENT A&OX4, PLEASANT AND COOPERATIVE c CARE. PATEINT VERBALIZES NEEDS AND CALLS APPROPRIATELY. PATIENT IS A SBA W/ WALKER TO BATHRM. PATIENT IS ON TELE AFIB HR 80's BPM. PATIENT DENIES ANY CHEST PAIN/PRESSURE, SOB, N/V, OR DIZZINESS AT THIS TIME. PATIENT IS ON 3 LITERS VIA NC SATTING >94%. PATIENT TOLERATES DIET. PATIENT RECEIVED SCHEDULED MEDS PER EMAR. PATIENT IS CURRENTLY SITTING UP IN CHAIR. PATIENT HAS CALL LIGHT IN REACH.
--- NOTE | 2024-10-08 16:34 | NUR ---
ASSUMPTION OF CARE: ASSUMED CARE OF PATIENT. AWAKE DURING SHIFT CHANGE REPORT, SITTING UP IN RECLINER, WATCHING TV AND PLAYING A GAME ON HER TABLET. BREATHING EVEN AND UNLABORED ON 4LPM/NC. TELE AFIB @ 95 c BBB & PVCs PER BUILDING PERFORMANCE SPECIALISTCARYN OLSEN. CALL LIGHT WITHIN REACH. NO ACUTE NEEDS.
[2024-10-08] MEDS ORDERED: Mometasone/Formoterol MDI 100/5 mcg 13 GM INH SCH (17:30)
[2024-10-08] MEDS ORDERED: Spironolactone 25 MG Tab PO SCH (18:00)
[2024-10-08 19:32] VITALS: BP 141/86
[2024-10-08] MEDS ORDERED: Montelukast Sodium 10 MG Tab PO SCH (21:00)
[2024-10-08] MEDS ORDERED: Insulin Human Lispro 100 Units/ML 3ML Syringe SC SCH (21:00)
[2024-10-09] VITALS (7 sets, daily range): BP systolic 125–148; BP diastolic 69–88
[2024-10-09] MEDS ORDERED: Omeprazole 20 MG CapCR PO SCH (06:00)
[2024-10-09] MEDS ORDERED: Levothyroxine Sodium 0.1 MG Tab PO SCH (06:00)
[2024-10-09 06:31] LABS: BASOPHILS ABSOLUTE AUTO 0.01 K/mm3 (0.00-0.23); BASOPHILS PERCENT AUTO 0 % (0-2); EOSINOPHILS PERCENT AUTO 0 % (0-6); Hematocrit 27.6 % (33.0-51.0); Hemoglobin 8.1 g/dL (11.5-16.0); IMMATURE GRAN ABSOLUTE AUTO 0.12 K/mm3 (0.00-0.10); IMMATURE GRAN PERCENT AUTO 1 % (0-1); LYMPHOCYTES ABSOLUTE AUTO 0.41 K/mm3 (0.84-5.20); LYMPHOCYTES PERCENT AUTO 4 % (21-46); MONOCYTES ABSOLUTE AUTO 0.31 K/mm3 (0.16-1.47); MONOCYTES PERCENT AUTO 3 % (4-13); Mean Corpuscular HGB 25.5 pg (26.0-34.0); Mean Corpuscular HGB Conc 29.3 g/dL (31.5-36.5); Mean Corpuscular Volume 87 fL (80-100); Mean Platelet Volume 9.9 fL (9.1-12.4); NEUTROPHILS ABSOLUTE AUTO 9.92 K/mm3 (1.96-9.15); NEUTROPHILS PERCENT AUTO 92 % (41-73); NRBC ABSOLUTE 0.02 K/mm3 (0.00-0.02); NRBC Auto 0.2 /100 WBC (0.0-0.2); Platelet Count 317 K/mm3 (150-400); RDW Coefficient Variation 18.6 % (11.7-14.2); RDW Standard Deviation 54.4 fL (35.1-46.3); Red Blood Cell Count 3.18 M/mm3 (3.80-5.20); White Blood Cell Count 10.77 K/mm3 (4.00-11.30)
[2024-10-09 07:01] LABS: Bun/Creatinine Ratio 23.3 (12.0-20.0); Creatinine, Blood 0.9 mg/dL (0.40-1.00); Potassium, Blood 3.3 mmol/L (3.5-5.5)
[2024-10-09] MEDS ORDERED: Loratadine 10 MG Tab PO SCH (09:00)
[2024-10-09] MEDS ORDERED: Sertraline HCl 100 MG Tab PO SCH (09:00)
[2024-10-09] MEDS ORDERED: Potassium Chloride 20 MEQ TabCR PO ONE (11:00)
[2024-10-09] MEDS ORDERED: Insulin Human Lispro 100 Units/ML 3ML Syringe SC SCH (11:30)
--- NOTE | 2024-10-09 15:56 | NUR ---
NO ACUTE CHANGES THIS SHIFT. PATIENT IS ON 2L NC WHICH IS HER BASELINE. PLAN FOR TOMORROW IS TO HAVE A STRESS TEST COMPLETED. PT REPORTS SOB HAS IMPROVED BUT DOES HAVE SOB ON EXERTION. PT DENIES CHEST PAIN OR PRESSURE.
--- NOTE | 2024-10-09 16:10 | NUR ---
THIS RN READ STUDENT NURSE SHIFT SUMMARY AND DO AGREE WITH HER NOTE
--- NOTE | 2024-10-09 18:25 | NUR ---
THIS RN ALERTED BY TYPEWRITER TESTER PT IN AFIB WITH RVR. PT NON SYMPTOMATIC. VSS. PUSHED 10 MG DILTIAZEM IV. PT HR NOW AFIB 112, VSS. PT DENIES CHEST PAIN AT THIS TIME
[2024-10-09] MEDS ORDERED: NS 250 ML IV PRN (20:30)
[2024-10-09] MEDS ORDERED: Insulin Human Lispro 100 Units/ML 3ML Syringe SC ONE (22:35)
--- NOTE | 2024-10-09 22:49 | NUR ---
PT CBG 408, PT ASYMPTOMATIC. DR NICHOLS NOTIFIED. ORDER RECEIVED TO GIVE 3 ADDITIONAL UNITS OF HUMALOG WITH SLIDING SCALE FOR A TOTAL OF 8 UNITS. RE CHECK CBG IN 4 HRS AT APPROX 0230. CONTINUED ROUNDING / SAFETY CHECKS IN PLACE.
[2024-10-10] VITALS (8 sets, daily range): BP systolic 132–157; BP diastolic 69–101
[2024-10-10] MEDS ORDERED: MethylPREDNISolone Sod Succ 40 MG VIAL IV SCH
--- NOTE | 2024-10-10 05:11 | NUR ---
LEAD MOBILE DEVELOPER SUMMARY: PT A&O X4. SEE PREVIOUS NOTE FOR HIGH CBG. RECHECK AT APPROX 0245: 266; ASYMPTOMATIC. NO ACUTE CHANGES T/O SHIFT. PT RESTING IN RECLINER T/O SHIFT AND ABLE TO REPOSITION SELF. SBA WITH FWW TO BATHROOM FOR LINE MANAGEMENT. NO ADVERSE SIDE EFFECTS TO IV ABX TX. DENIES CHEST PAIN / PRESSURE. CALL LIGHT IN REACH. CARES ONGOING ORDERED.
[2024-10-10 05:32] LABS: BASOPHILS ABSOLUTE AUTO 0.01 K/mm3 (0.00-0.23); BASOPHILS PERCENT AUTO 0 % (0-2); EOSINOPHILS ABSOLUTE AUTO 0.01 K/mm3 (0.00-0.68); EOSINOPHILS PERCENT AUTO 0 % (0-6); Hematocrit 28.4 % (33.0-51.0); Hemoglobin 8.3 g/dL (11.5-16.0); IMMATURE GRAN PERCENT AUTO 2 % (0-1); LYMPHOCYTES ABSOLUTE AUTO 0.38 K/mm3 (0.84-5.20); LYMPHOCYTES PERCENT AUTO 3 % (21-46); MONOCYTES ABSOLUTE AUTO 0.53 K/mm3 (0.16-1.47); MONOCYTES PERCENT AUTO 4 % (4-13); Mean Corpuscular HGB 25.2 pg (26.0-34.0); Mean Corpuscular HGB Conc 29.2 g/dL (31.5-36.5); Mean Corpuscular Volume 86 fL (80-100); Mean Platelet Volume 9.8 fL (9.1-12.4); NEUTROPHILS ABSOLUTE AUTO 11.39 K/mm3 (1.96-9.15); NEUTROPHILS PERCENT AUTO 91 % (41-73); NRBC ABSOLUTE 0.03 K/mm3 (0.00-0.02); NRBC Auto 0.2 /100 WBC (0.0-0.2); Platelet Count 319 K/mm3 (150-400); RDW Coefficient Variation 19.2 % (11.7-14.2); RDW Standard Deviation 56.6 fL (35.1-46.3); White Blood Cell Count 12.52 K/mm3 (4.00-11.30)
[2024-10-10 05:57] LABS: Bun/Creatinine Ratio 29.9 (12.0-20.0); Calcium, Blood 9.4 mg/dL (8.5-10.1); Creatinine, Blood 0.9 mg/dL (0.40-1.00); Potassium, Blood 3.6 mmol/L (3.5-5.5)
[2024-10-10] MEDS ORDERED: Lactobacil 2-S.Thermo-Bifido 1 1 Cap PO SCH (09:00)
[2024-10-10 12:05] LABS: Percent Saturation 9.3 % (15.0-50.0)
[2024-10-10] MEDS ORDERED: Docusate Sodium/Senna 1 Tab PO PRN (12:35)
[2024-10-10] MEDS ORDERED: DEXTROMETHORPHAN/BENZOCAINE 1 EACH LOZENGE MT PRN (17:50)
[2024-10-10] MEDS ORDERED: Gabapentin 300 MG Cap PO SCH (21:00)
[2024-10-11 03:44] VITALS: BP 127/85
[2024-10-11 05:26] LABS: BASOPHILS PERCENT AUTO 0 % (0-2); EOSINOPHILS ABSOLUTE AUTO 0.07 K/mm3 (0.00-0.68); EOSINOPHILS PERCENT AUTO 1 % (0-6); Hemoglobin 7.6 g/dL (11.5-16.0); IMMATURE GRAN PERCENT AUTO 1 % (0-1); LYMPHOCYTES ABSOLUTE AUTO 0.87 K/mm3 (0.84-5.20); LYMPHOCYTES PERCENT AUTO 10 % (21-46); MONOCYTES ABSOLUTE AUTO 0.74 K/mm3 (0.16-1.47); MONOCYTES PERCENT AUTO 9 % (4-13); Mean Corpuscular HGB 25.4 pg (26.0-34.0); Mean Corpuscular HGB Conc 29.2 g/dL (31.5-36.5); Mean Corpuscular Volume 87 fL (80-100); Mean Platelet Volume 9.9 fL (9.1-12.4); NEUTROPHILS ABSOLUTE AUTO 6.59 K/mm3 (1.96-9.15); NEUTROPHILS PERCENT AUTO 79 % (41-73); NRBC ABSOLUTE 0.04 K/mm3 (0.00-0.02); NRBC Auto 0.5 /100 WBC (0.0-0.2); Platelet Count 215 K/mm3 (150-400); RDW Coefficient Variation 19.3 % (11.7-14.2); RDW Standard Deviation 58.8 fL (35.1-46.3); Red Blood Cell Count 2.99 M/mm3 (3.80-5.20); White Blood Cell Count 8.37 K/mm3 (4.00-11.30)
[2024-10-11 05:44] LABS: Bun/Creatinine Ratio 30.2 (12.0-20.0); Calcium, Blood 8.7 mg/dL (8.5-10.1); Creatinine, Blood 0.99 mg/dL (0.40-1.00)
[2024-10-11] MEDS ORDERED: Potassium Chloride 20 MEQ TabCR PO ONE ×3 (06:20→09:35)
--- NOTE | 2024-10-11 06:21 | NUR ---
DR. FAM NOTIFIED OF POTASSIUM LEVEL OF 3.0. NEW ORDER RECEIVED:POTASSIUM 40 MEQ PO NOW X1.
[2024-10-11 08:43] VITALS: BP 143/64
[2024-10-11] MEDS ORDERED: PredniSONE 20 MG Tab PO SCH (09:00)
--- NOTE | 2024-10-11 09:00 | NUR ---
pt laying in bed with eyes closed, on cpap, wakes easily, a/ox4, pleasant and cooperative with care, follows commands well, denies pain at this time, lungs are clear t/o, resp even and unlabored, no cough noted, on r/a during the day, hrr, tele in place running afib per monitor, see strip, trace edema noted to b/l le, ppp+1, cap refill <3 sec, vs stable, afebrile, piv to rfa site is clear and patent, btx4, abd flat soft nontender, voids without diff, skin c/w/d, maew, shweta, call light in reach.
[2024-10-11 12:06] VITALS: BP 129/79
[2024-10-11 16:08] VITALS: BP 139/78
--- NOTE | 2024-10-11 16:49 | NUR ---
SHIFT SUMMARY 1315 ASSUMED CARE OF PT. UP TO CHAIR AT BS WATCHING TV. REPORTS BEING ABLE TO AMBULATE TO BTHRM ON HER OWN USING FWW. PT HAS CALLED FOR SAFETY D/T O2 TUBING, BUT HAS BEEN ABLE TO MANAGE ON HER OWN SHE DOES LIVE INDEPENDENTLY. PT HAS REMAINED IN CHAIR AT BS THRU OUT THE DAY. NO C/O PAIN OR SOB. DENIES NEEDS. CALL LT IN REACH.
--- NOTE | 2024-10-11 17:50 | NUR ---
DIABETIC EDU DISCUSSED WITH PT CBG'S ELEVATED. PT REPORTED HgA1c NOT CHECKED IN A COUPLE OF YEARS. DR LING NOTIFIED; LAB ADDED FOR AM.
[2024-10-11 19:39] VITALS: BP 100/64
[2024-10-12 00:20] VITALS: BP 133/67
[2024-10-12 04:05] VITALS: BP 129/61
--- NOTE | 2024-10-12 04:05 | NUR ---
SHIFT SUMMARY PATIENT HAD NO ACUTE CHANGES. SBA W/FWW TO BR. DENIES CHEST PAIN, SOB, AND N/V. VSS/AFEBRILE. ON 2L O2 NC. CBG 213. TELE MONITOR AFIB 104 W/BBB. PIV INTACT. IV ABX INFUSED. RT IN FOR BREATHING TX. CALL LIGHT IN REACH. BED IN LOWEST POSITION. WILL CONTINUE TO MONITOR UNTIL DAY SHIFT NURSE ASSUMES CARE.
[2024-10-12 05:48] LABS: BASOPHILS ABSOLUTE AUTO 0.01 K/mm3 (0.00-0.23); BASOPHILS PERCENT AUTO 0 % (0-2); EOSINOPHILS ABSOLUTE AUTO 0.12 K/mm3 (0.00-0.68); EOSINOPHILS PERCENT AUTO 2 % (0-6); Hematocrit 25.4 % (33.0-51.0); Hemoglobin 7.5 g/dL (11.5-16.0); IMMATURE GRAN ABSOLUTE AUTO 0.13 K/mm3 (0.00-0.10); IMMATURE GRAN PERCENT AUTO 2 % (0-1); LYMPHOCYTES ABSOLUTE AUTO 0.97 K/mm3 (0.84-5.20); LYMPHOCYTES PERCENT AUTO 12 % (21-46); MONOCYTES ABSOLUTE AUTO 0.63 K/mm3 (0.16-1.47); MONOCYTES PERCENT AUTO 8 % (4-13); Mean Corpuscular HGB 25.7 pg (26.0-34.0); Mean Corpuscular HGB Conc 29.5 g/dL (31.5-36.5); Mean Corpuscular Volume 87 fL (80-100); Mean Platelet Volume 9.9 fL (9.1-12.4); NEUTROPHILS ABSOLUTE AUTO 6.15 K/mm3 (1.96-9.15); NEUTROPHILS PERCENT AUTO 77 % (41-73); NRBC ABSOLUTE 0.04 K/mm3 (0.00-0.02); NRBC Auto 0.5 /100 WBC (0.0-0.2); Platelet Count 196 K/mm3 (150-400); RDW Coefficient Variation 19.6 % (11.7-14.2); RDW Standard Deviation 61.2 fL (35.1-46.3); Red Blood Cell Count 2.92 M/mm3 (3.80-5.20); White Blood Cell Count 8.01 K/mm3 (4.00-11.30)
[2024-10-12 06:16] LABS: Bun/Creatinine Ratio 30.6 (12.0-20.0); Calcium, Blood 8.8 mg/dL (8.5-10.1); Creatinine, Blood 0.91 mg/dL (0.40-1.00); Potassium, Blood 3.4 mmol/L (3.5-5.5)
--- NOTE | 2024-10-12 07:49 | NUR ---
ASSUMPTION OF CARE: ASSUMED CARE OF PATIENT. AWAKE DURING SHIFT CHANGE REPORT, SITTING UP IN BED. BREATHING EVEN AND UNLABORED ON SPO2 >92% ON 2LPM/NC INDICATED BY CONTINUOUS BiOx. TELE A-FIB @ 81 c BBB PER RHYTHM STRIP. BED IN LOWEST POSITION. CALL LIGHT WITHIN REACH. NO ACUTE NEEDS.
[2024-10-12 07:55] VITALS: BP 151/82
--- NOTE | 2024-10-12 08:01 | NUR ---
STOOL SAMPLE COLLECTED AND SENT TO LAB FOR ANALYSIS.
[2024-10-12 11:03] VITALS: BP 136/67
[2024-10-12 12:36] LABS: Stool Occult Blood Guaiac 1 Pos (Neg)
[2024-10-12] MEDS ORDERED: Potassium Chloride 20 MEQ TabCR PO ONE (14:50)
[2024-10-12 16:11] VITALS: BP 145/82
--- NOTE | 2024-10-12 19:15 | NUR ---
END OF SHIFT SUMMARY: A&Ox4. PLEASANT AND COOPERATIVE WITH CARE. CALLS APPROPRIATELY AND IS ABLE TO ADVOCATE NEEDS EFFECTIVELY. CONTINENT OF BOWEL AND BLADDER; LBM TODAY AND STOOL SAMPLE OBTAINED. POSITIVE FOR BLOOD AND GI/GENERAL SURG CONSULT PLACED; HAS NOT BEEN SEEN YET. DC LASIX AND ADDED TORSEMIDE TO REGIMEN. TELE AFIB c BBB @ 81 AND TACHS UP TO 120s WITH EXERTION. MEDS WHOLE c FLUIDS. SUGARS >250 TODAY. BED IN LOWEST POSITION, CALL LIGHT WITHIN REACH, ALL NEEDS MET. REPORT TO ONCOMING NURSE.
[2024-10-12 19:21] VITALS: BP 105/70
[2024-10-12] MEDS ORDERED: Metoprolol Tartrate 25 MG Tab PO SCH (21:00)
--- NOTE | 2024-10-12 22:04 | NUR ---
BLOOD SUGAR 421 NOTIFIED EMMETT CABRERA NP. T.O. TO GIVE 4 UNITS HUMALOG SUBCUT NOW FOR A TOTAL OF 9 UNITS TONIGHT. ORDER ENTERED.
[2024-10-12] MEDS ORDERED: Insulin Human Lispro 100 Units/ML 3ML Syringe SC ONE (22:05)
[2024-10-13 00:05] VITALS: BP 135/80
[2024-10-13 04:06] VITALS: BP 137/79
--- NOTE | 2024-10-13 04:47 | NUR ---
Shift Summary AOx4. 1p FWW to bathroom, calls appropriately for needs. Refusing SCD's. Favors laying on L side with pillow support. Tolerated CPAP until 0430am, remains on 2L O2 NC otherwise. Hyperglycemic (400s+) x 1, see previous note. Education given RE carby snacks vs protein snack AND risks associated with uncontrolled blood glucoses. Presents with frustration when RN declined saltine crackers for snack however agreeable to meat/cheese instead. Patient likes to walk barefoot but has neuropathy issues with BLE. Risks explained (high risk for unknown injury which can lead to infection and possibly amputation, lengthy hospitalization, and/or ). Ways to mitigate discussed with patient (protect feet with closed toe diabetic shoes and daily visual inspection of feet for breaks in the skin). Patient verbalized understanding.
[2024-10-13 05:14] LABS: BASOPHILS PERCENT AUTO 0 % (0-2); EOSINOPHILS ABSOLUTE AUTO 0.06 K/mm3 (0.00-0.68); EOSINOPHILS PERCENT AUTO 1 % (0-6); Hematocrit 24.8 % (33.0-51.0); Hemoglobin 7.5 g/dL (11.5-16.0); IMMATURE GRAN PERCENT AUTO 1 % (0-1); LYMPHOCYTES ABSOLUTE AUTO 0.65 K/mm3 (0.84-5.20); LYMPHOCYTES PERCENT AUTO 8 % (21-46); MONOCYTES ABSOLUTE AUTO 0.57 K/mm3 (0.16-1.47); MONOCYTES PERCENT AUTO 7 % (4-13); Mean Corpuscular HGB 25.9 pg (26.0-34.0); Mean Corpuscular HGB Conc 30.2 g/dL (31.5-36.5); Mean Corpuscular Volume 86 fL (80-100); Mean Platelet Volume 9.7 fL (9.1-12.4); NEUTROPHILS ABSOLUTE AUTO 6.87 K/mm3 (1.96-9.15); NEUTROPHILS PERCENT AUTO 83 % (41-73); NRBC ABSOLUTE 0.03 K/mm3 (0.00-0.02); NRBC Auto 0.4 /100 WBC (0.0-0.2); Platelet Count 189 K/mm3 (150-400); RDW Standard Deviation 59.4 fL (35.1-46.3); White Blood Cell Count 8.25 K/mm3 (4.00-11.30)
[2024-10-13 05:31] LABS: Bun/Creatinine Ratio 32.5 (12.0-20.0); Calcium, Blood 9.2 mg/dL (8.5-10.1); Creatinine, Blood 0.89 mg/dL (0.40-1.00); Potassium, Blood 3.7 mmol/L (3.5-5.5)
[2024-10-13 07:16] VITALS: BP 146/80
[2024-10-13] MEDS ORDERED: Torsemide 20 MG TAB PO SCH (09:00)
--- NOTE | 2024-10-13 10:49 | NUR ---
ASSUMED CARE ASSUMED CARE OF PT AT 0715. PT ALERT, ORIENTED, ABLE TO MAKE NEEDS KNOWN. PT DENIES SOB, IS ON 2 LITERS OF 02 WITH SATS GREATER THAN 92%. PT GETS UP WITH ONE PERSON ASSIST AND FRONT WHEEL WALKER. PT EAGER TO MEET WITH DR JOHNSON ABOUT RECENT FINDINGS OF BLOOD IN HER STOOL. SHE WOULD ALSO LIKE TO KNOW WHEN SHE CAN GO HOME. PT AWARE THIS WILL BE DISCUSSED WITH HOSPITALIST DURING DAILY ROUNDS. [address] JOHNSON AND PT DECIDED TO HAVE AN UPPER ENDOSCOPY AND NOT LOWER, PLAN IS TO BE DONE TOMORROW
[2024-10-13 12:11] VITALS: BP 130/65
--- NOTE | 2024-10-13 13:52 | NUR ---
CALL FROM [facility] ENSURING ORDERS FOR PATIENT TO BE NPO AFTER MIDNIGHT.
[2024-10-13 15:15] VITALS: BP 141/70
[2024-10-13] MEDS ORDERED: Pantoprazole Sodium 40 MG Tab PO SCH (16:30)
--- NOTE | 2024-10-13 17:33 | NUR ---
END OF SHIFT PT ALERT, ORIENTED, ABLE TO MAKE NEEDS KNOWN. PT IS UP WITH STAND BY ASSIST WITH FRONT WHEEL WALKER. PT LUNG SOUNDS DIM AND CLEAR AND ABLE TO KEEP SATS ABOVE 92% ON 2 LITERS OF O2 (BASELINE). PT HAD ONE MED FORMED BM THAT DID NOT APPEAR TO HAVE BLOOD-PER PT, SHE FLUSHED. PT IS AWARE SHE IS NOT TO HAVE ANYTHING TO EAT OR DRINK AFTER 0001 TONIGHT FOR ENDOSCOPY TOMORROW. PT EDUCATED ON BLOOD SUGAR MONITORING AND DIDNT HAVE ANY S/S OF HYPER OR HYPOGLYCEMIA TODAY. PT HAS CALL LIGHT WITHIN REACH AND USES APPROPRIATELY
[2024-10-13 19:29] VITALS: BP 114/59
[2024-10-14 00:25] VITALS: BP 126/70
--- NOTE | 2024-10-14 04:40 | NUR ---
Shift Summary AOx4. Up to bathroom x 1p SBA FWW. NPO since midnight for planned upper endoscopy later today. Tele: Afib BBB. Denies dizziness. Voiding well. Complying with CPAP at HS. O2 supplement remains at baseline. Refusing SCDs and foot protection again. Reinforced education on both, patient verbalized understanding. Blood sugars and edema significantly improved. Patient requesting to discuss ECHO results with Attending. C/O difficulty returning to sleep once disrupted. Call light and possessions within reach.
[2024-10-14 04:48] VITALS: BP 122/69
[2024-10-14 05:15] LABS: BASOPHILS ABSOLUTE AUTO 0.01 K/mm3 (0.00-0.23); BASOPHILS PERCENT AUTO 0 % (0-2); EOSINOPHILS ABSOLUTE AUTO 0.24 K/mm3 (0.00-0.68); EOSINOPHILS PERCENT AUTO 2 % (0-6); Hemoglobin 8.5 g/dL (11.5-16.0); IMMATURE GRAN ABSOLUTE AUTO 0.11 K/mm3 (0.00-0.10); IMMATURE GRAN PERCENT AUTO 1 % (0-1); LYMPHOCYTES ABSOLUTE AUTO 1.53 K/mm3 (0.84-5.20); LYMPHOCYTES PERCENT AUTO 14 % (21-46); MONOCYTES ABSOLUTE AUTO 0.89 K/mm3 (0.16-1.47); MONOCYTES PERCENT AUTO 8 % (4-13); Mean Corpuscular HGB 25.4 pg (26.0-34.0); Mean Corpuscular HGB Conc 29.3 g/dL (31.5-36.5); Mean Corpuscular Volume 87 fL (80-100); Mean Platelet Volume 10.4 fL (9.1-12.4); NEUTROPHILS ABSOLUTE AUTO 8.07 K/mm3 (1.96-9.15); NEUTROPHILS PERCENT AUTO 74 % (41-73); NRBC ABSOLUTE 0.03 K/mm3 (0.00-0.02); NRBC Auto 0.3 /100 WBC (0.0-0.2); Platelet Count 250 K/mm3 (150-400); RDW Standard Deviation 59.9 fL (35.1-46.3); Red Blood Cell Count 3.34 M/mm3 (3.80-5.20); White Blood Cell Count 10.85 K/mm3 (4.00-11.30)
[2024-10-14 05:34] LABS: Calcium, Blood 9.4 mg/dL (8.5-10.1); Creatinine, Blood 1.13 mg/dL (0.40-1.00)
[2024-10-14] MEDS ORDERED: Pantoprazole Sodium 40 MG Injection IV ONE ×2 (05:50→10:35)
--- NOTE | 2024-10-14 06:05 | NUR ---
Protonix IV Discussed with Dr. Luz Elena Timmons RE NPO status d/t GIB and pending upper scope later today. Received V.O. to replace A.M. 40mg PO Protonix to IV once. Order entered.
[2024-10-14] MEDS ORDERED: Lactated Ringer's 1,000 ML IV SCH (06:15)
[2024-10-14 06:43] VITALS: BP 155/78
[2024-10-14] MEDS ORDERED: propofoL 100 ML IV ONE (06:54)
--- NOTE | 2024-10-14 06:56 | NUR ---
Patient transport to Day Surgery @ 0645.
--- NOTE | 2024-10-14 06:57 | NUR ---
PT TRANSPORTED TO [facility] VIA BED. AGREES WITH PLANNED PROCURE. History, Chart, Medications and Allergies reviewed before start of procedure. Pre-Op teaching done. Pt verbalizes understanding.
--- NOTE | 2024-10-14 07:32 | NUR ---
10/14/24 0732 Merlin Birmingham MONITOR INTACT WITH CONTINUOUS PULSE OXIMETRY, CONTINUOUS END TITAL CO2, 3-LEAD EKG AND INTERMITTENT BLOOD PRESSURE.Bite Block Placed
--- NOTE | 2024-10-14 07:52 | NUR ---
PT RETURNED FROM DAY SURGERY/EGD PROCEDURE. PT AWAKE/ALERT, ABLE TO STAND AND AMBULATE USING FWW BACK TO HOSPITAL BED. PT DENIES DIZZINESS OR PAIN. REQUESTING ICE CHIPS - AWAITING DR ORDERS. PT NOW RESTING IN BED ON LEFT SIDE, CALL LIGHT WITHIN REACH. BED IN LOWEST POSITION.
[2024-10-14 08:12] VITALS: BP 112/64
[2024-10-14] MEDS ORDERED: METO25 PO (13:32)
--- NOTE | 2024-10-14 14:29 | NUR ---
PT DISCHARGED HOME WITH HH. IV REMOVED AND SITE WNL, SLIGHTLY TENDER PER PT. DISCHARGE PACKET REVIEWED WITH PT. FOLLOW UP APPOINTMENT WITH PCP SCHEDULED FOR 10/18/24 @ 5060. PT DISCHARGED PRIOR TO REVISED MED REC ENTERED, RN SENT 2 ADDITIONAL RX TO [facility] AND CONTACTED PT VIA PHONE AND NOTIFIED HER OF ADDITIONAL ORDERS. THIS RN WHEELED PT DOWN TO PATIENT ENTRANCE WHERE HER FRIEND PICKED HER UP IN PRIVATE CAR. PT ABLE TO STAND AMBULATE INDEPENDENTLY. PT USES PORTABLE O2 CONCENTRATOR AT TIME OF DISCHARGE.
[2024-10-14] MEDS ORDERED: Carafate1 GM/10 ML PO (14:34)
[2024-10-14] MEDS ORDERED: URSODIOL250 MG PO (14:35)
== END 2024-10-14 14:18 | disposition home health service (06) | DRG 291 ==
LOC: ER 13:53 → ERHOLD 13:54 → MEDS 13:54
PROVIDERS: Family Medicine; Internal Medicine; Nurse Practitioner Acute Care; Physician Assistant; Surgery; ADMIT Internal Medicine
PROC: 0DB78ZX Excision of Stomach, Pylorus, Via Natural or Artificial Opening Endoscopic, Diagnostic (ICD-10-PCS; principal; 2024-10-14 07:30)
DX: I11.0 Hypertensive heart disease with heart failure (principal); I50.33 Acute on chronic diastolic (congestive) heart failure; J96.21 Acute and chronic respiratory failure with hypoxia; J44.1 Chronic obstructive pulmonary disease with (acute) exacerbation; J45.901 Unspecified asthma with (acute) exacerbation; I48.20 Chronic atrial fibrillation, unspecified; Z68.41 Body mass index [BMI] 40.0-44.9, adult; E11.9 Type 2 diabetes mellitus without complications; E66.01 Morbid (severe) obesity due to excess calories; E03.9 Hypothyroidism, unspecified; E78.5 Hyperlipidemia, unspecified; D50.9 Iron deficiency anemia, unspecified; F32.A Depression, unspecified; G47.33 Obstructive sleep apnea (adult) (pediatric); D63.8 Anemia in other chronic diseases classified elsewhere; K29.60 Other gastritis without bleeding; K64.9 Unspecified hemorrhoids; R07.9 Chest pain, unspecified; Z99.81 Dependence on supplemental oxygen; Z79.01 Long term (current) use of anticoagulants; Z79.84 Long term (current) use of oral hypoglycemic drugs; Z79.51 Long term (current) use of inhaled steroids; Z79.890 Hormone replacement therapy; Z87.891 Personal history of nicotine dependence
CPT/HCPCS: 36415; 71046; 80048; 80053; 82272; 82728; 82947; 83036; 83540; 83550; 83690; 83880; 84484; 85025; 85027; 85379; 88305; 88342; 93005; 93010; 93306; 94640; 94644; 94645; 94660; 94664; 94760; 94762; 96365; 96375; 96376; 99285-25; A9270; G0378; J0456; J1938; J2470; J2704; J2919; J7050; J7120; J7512

== ENCOUNTER → 2025-01-02 | Outpatient (CLI) | payer MEDICARE ==
[~2025-01-02] MED LIST changes: +ACET500 PO; +Carafate1 GM/10 ML PO; +EUTHYROX50 MCG PO; +LORA10ER PO; +METO25 PO; +MONT10T PO; +OMEP20ER PO; +Synthroid200 MCG PO; +URSODIOL250 MG PO
[2025-01-04 13:17] LABS: Stool Occult Bld Immuno 1 Positive (NEGATIVE)
== END ==
LOC: LAB 14:20 → LAB SHORT 14:20
PROVIDERS: Family Medicine
DX: D50.0 Iron deficiency anemia secondary to blood loss (chronic) (principal)
CPT/HCPCS: G0328

== ENCOUNTER → 2025-01-19 | Outpatient (CLI) | payer MEDICARE | END | disposition home or self-care (01) | LOC: LAB 08:32 → LAB SHORT 08:32 | DX: L57.0 Actinic keratosis (principal); D48.5 Neoplasm of uncertain behavior of skin | CPT/HCPCS: 88305 ==

== ENCOUNTER 2025-03-03 18:20 | Emergency (ER) | payer OTHER, MEDICARE ==
[~2025-03-03] VITALS: Ht 162.6 cm; Wt 103.4 kg
[~2025-03-03 18:20] MED LIST changes: -ALBU90OI; +ALBU90OI INH; -FARXIGA10 MG; +FARXIGA10 MG PO; +METF500C PO; -VITAMIN D31250 MC2; +VITAMIN D325 MC3 PO
[2025-03-03 18:58] LABS: BASOPHILS ABSOLUTE AUTO 0.04 K/mm3 (0.00-0.23); BASOPHILS PERCENT AUTO 1 % (0-2); EOSINOPHILS ABSOLUTE AUTO 0.15 K/mm3 (0.00-0.68); EOSINOPHILS PERCENT AUTO 2 % (0-6); Hematocrit 30.1 % (33.0-51.0); Hemoglobin 8.6 g/dL (11.5-16.0); IMMATURE GRAN ABSOLUTE AUTO 0.04 K/mm3 (0.00-0.10); IMMATURE GRAN PERCENT AUTO 1 % (0-1); LYMPHOCYTES ABSOLUTE AUTO 0.86 K/mm3 (0.84-5.20); LYMPHOCYTES PERCENT AUTO 13 % (21-46); MONOCYTES ABSOLUTE AUTO 0.44 K/mm3 (0.16-1.47); MONOCYTES PERCENT AUTO 7 % (4-13); Mean Corpuscular HGB Conc 28.6 g/dL (31.5-36.5); Mean Corpuscular Volume 80 fL (80-100); NEUTROPHILS ABSOLUTE AUTO 5.21 K/mm3 (1.96-9.15); NEUTROPHILS PERCENT AUTO 77 % (41-73); NRBC ABSOLUTE 0.00 K/mm3 (0.00-0.02); NRBC Auto 0.0 /100 WBC (0.0-0.2); Platelet Count 277 K/mm3 (150-400); RDW Coefficient Variation 17.0 % (11.7-14.2); RDW Standard Deviation 49.4 fL (35.1-46.3)
[2025-03-03 19:31] LABS: Alanine Aminotransfer (ALT/SGP 18.0 U/L (12-78); Albumin, Blood 3.5 g/dL (3.4-5.0); Albumin/Globulin Ratio 1.0 (0.8-1.8); Anion Gap 8.0 mmol/L (3-11); Aspartate Aminotrans (AST/SGOT 25.0 U/L (12-37); Bilirubin, Total 0.4 mg/dL (0.1-1.0); Blood Urea Nitrogen 21.0 mg/dL (8-24); CO2, Blood 38.0 mmol/L (21-32); Calcium, Blood 8.9 mg/dL (8.5-10.1); Chloride, Blood 92.0 mmol/L (98-108); Creatinine, Blood 1.33 mg/dL (0.40-1.00); Globulin, Blood 3.5 g/dL (2.2-4.0); Glucose, Blood 159.0 mg/dL (70-99); Potassium, Blood 3.6 mmol/L (3.5-5.5); Sodium, Blood 134.0 mmol/L (136-145); Total Protein, Blood 7.0 g/dL (6.4-8.2)
[2025-03-03] MEDS ORDERED: FentaNYL Citrate 50 MCG/ML 2 ML Injection IV ONE (19:35)
[2025-03-03] MEDS ORDERED: CEPH500 PO (20:22)
[2025-03-03] MEDS ORDERED: OXYACE7.5T PO (20:55)
[2025-03-03 21:15] VITALS: BP 147/80
[2025-03-03] MEDS ORDERED: RX Prepack 6 Tabs Oxycodone 5mg UD ONE (21:45)
== END 2025-03-03 21:50 | disposition home or self-care (01) ==
LOC: ER 18:20
PROVIDERS: Emergency Medicine
DX: S42.301A Unspecified fracture of shaft of humerus, right arm, initial encounter for closed fracture (principal); S01.111A Laceration without foreign body of right eyelid and periocular area, initial encounter; S70.02XA Contusion of left hip, initial encounter; U07.1 COVID-19; J11.1 Influenza due to unidentified influenza virus with other respiratory manifestations; D64.9 Anemia, unspecified; J44.89 Other specified chronic obstructive pulmonary disease; I11.0 Hypertensive heart disease with heart failure; I50.30 Unspecified diastolic (congestive) heart failure; I48.91 Unspecified atrial fibrillation; E11.9 Type 2 diabetes mellitus without complications; E03.9 Hypothyroidism, unspecified; E78.5 Hyperlipidemia, unspecified; G47.33 Obstructive sleep apnea (adult) (pediatric); W01.0XXA Fall on same level from slipping, tripping and stumbling without subsequent striking against object, initial encounter; Z79.899 Other long term (current) drug therapy
CPT/HCPCS: 70450; 73060; 73502; 80053; 85025; 96374; 99284-25; A9270; J3010

== ENCOUNTER 2025-03-04 22:40 | Inpatient (IN) | payer MEDICARE ==
[~2025-03-04] VITALS: Ht 162.6 cm; Wt 112.8 kg
[~2025-03-04 22:40] MED LIST changes: +OXYACE7.5T PO
[2025-03-05] VITALS (8 sets, daily range): BP systolic 101–169; BP diastolic 55–96
[2025-03-05] MEDS ORDERED: FentaNYL Citrate 50 MCG/ML 2 ML Injection IV PRN (03:05)
[2025-03-05] MEDS ORDERED: Ondansetron HCl 2 MG / ML 2ML Vial IV PRN (03:05)
[2025-03-05] MEDS ORDERED: NS 1,000 ML IV ONE (03:05)
[2025-03-05] MEDS ORDERED: FLU VACC TS2025(65UP)/MF59C/PF 45 MCG/0.5 ML SYRINGE IM SCH (03:05)
[2025-03-05 04:10] LABS: BASOPHILS ABSOLUTE AUTO 0.05 K/mm3 (0.00-0.23); BASOPHILS PERCENT AUTO 1 % (0-2); EOSINOPHILS ABSOLUTE AUTO 0.05 K/mm3 (0.00-0.68); EOSINOPHILS PERCENT AUTO 1 % (0-6); Hematocrit 24.4 % (33.0-51.0); Hemoglobin 7.5 g/dL (11.5-16.0); IMMATURE GRAN ABSOLUTE AUTO 0.05 K/mm3 (0.00-0.10); IMMATURE GRAN PERCENT AUTO 1 % (0-1); LYMPHOCYTES ABSOLUTE AUTO 0.51 K/mm3 (0.84-5.20); LYMPHOCYTES PERCENT AUTO 6 % (21-46); MONOCYTES ABSOLUTE AUTO 0.87 K/mm3 (0.16-1.47); MONOCYTES PERCENT AUTO 10 % (4-13); Mean Corpuscular HGB Conc 30.7 g/dL (31.5-36.5); Mean Corpuscular Volume 76 fL (80-100); NEUTROPHILS ABSOLUTE AUTO 6.82 K/mm3 (1.96-9.15); NEUTROPHILS PERCENT AUTO 82 % (41-73); NRBC ABSOLUTE 0.00 K/mm3 (0.00-0.02); NRBC Auto 0.0 /100 WBC (0.0-0.2); Platelet Count 248 K/mm3 (150-400); RDW Coefficient Variation 16.8 % (11.7-14.2); RDW Standard Deviation 47.1 fL (35.1-46.3)
[2025-03-05 04:29] LABS: Alanine Aminotransfer (ALT/SGP 15.0 U/L (12-78); Albumin, Blood 3.6 g/dL (3.4-5.0); Albumin/Globulin Ratio 1.1 (0.8-1.8); Anion Gap 7.0 mmol/L (3-11); Aspartate Aminotrans (AST/SGOT 26.0 U/L (12-37); Bilirubin, Total 1.5 mg/dL (0.1-1.0); Blood Urea Nitrogen 17.0 mg/dL (8-24); CO2, Blood 38.0 mmol/L (21-32); Calcium, Blood 8.9 mg/dL (8.5-10.1); Chloride, Blood 90.0 mmol/L (98-108); Creatinine, Blood 1.11 mg/dL (0.40-1.00); Globulin, Blood 3.2 g/dL (2.2-4.0); Glucose, Blood 176.0 mg/dL (70-99); Potassium, Blood 3.5 mmol/L (3.5-5.5); Sodium, Blood 131.0 mmol/L (136-145); Total Protein, Blood 6.8 g/dL (6.4-8.2)
[2025-03-05 04:48] LABS: Prothrombin Time Results 11.4 Sec (9.7-11.5)
[2025-03-05] MEDS ORDERED: EUTHYROX50 MCG PO (05:04)
[2025-03-05] MEDS ORDERED: Ipratropium/Albuterol SulF 2.5-0.5MG/3 ML Amp INH PRN (06:40)
[2025-03-05] MEDS ORDERED: Albuterol HFA200 ACT/6.7 GM INH INH PRN (07:05)
[2025-03-05] MEDS ORDERED: Sucralfate 1000MG / 10ML UD BTL PO SCH (07:30)
--- NOTE | 2025-03-05 07:59 | NUR ---
ADMIT/SHIFT SUMMARY PT ADMITTED THIS AM FOR R HUMERAL FX. PER RESEARCH DIRECTOR REPORT PT FELL 2 DAYS AGO & CAME INTO HOSPITAL & WAS SENT HOME TO KEN RED IN A SLING. UPON ARRIVAL TO SURGICAL UNIT PT IS IN A SPLINT & SLING TO R ARM. STRONG PULSE R RADIAL. CAP REFILL <3 SEC. DENIES N/T. PT ABLE TO MOVE BOTH HANDS. ELEVATED R ARM ON PILLOWS. PT STATES HER PAIN @HOME WAS 10/10 & AFTER BEING MEDICATED IN ER PAIN IS 2/10. AOX3-FORGETFUL TIME & IS A POOR HISTORIAN REGARDING MEDS & HX. PT IS ABLE TO STATE LAST DOSE XARELTO IS THURSDAY. PT REPORTS SHE HAS BEEN FEELING "UNSTEADY & DIZZY @HOME." VSS. SPO2 >90% ON 2L O2, BASELINE. TELE PLACED & PT AFIB. PT NPO FOR PENDING ORTHO CONSULT. CALL LIGHT IN REACH & PT ABLE TO MAKE NEEDS KNOWN.
[2025-03-05] MEDS ORDERED: Torsemide 20 MG TAB PO SCH (09:00)
[2025-03-05] MEDS ORDERED: Formoterol/Mometasone MDI 5/100 mcg 13 GM INH SCH (09:00)
[2025-03-05] MEDS ORDERED: ALBU2.5V5 INH (11:30)
[2025-03-05] MEDS ORDERED: DILTIAZEM 24HR360 MG PO (11:32)
[2025-03-05] MEDS ORDERED: ATOR20 PO (11:32)
[2025-03-05] MEDS ORDERED: FLONASE ALLERG9.9 M2 INH (11:40)
[2025-03-05] MEDS ORDERED: NITR.4SL SL (11:42)
[2025-03-05] MEDS ORDERED: ALDACTONE25 MG PO (11:51)
[2025-03-05] MEDS ORDERED: XARELTO15 MG PO (11:51)
[2025-03-05] MEDS ORDERED: DULERA 200 MCG-13 GM INH (11:54)
--- NOTE | 2025-03-05 16:33 | NUR ---
NOTIFIED BY TELE PT HAD AN R ON T PVC. NOTIFIED DR GRAHAM. NO NEW ORDERS AT THIS TIME.
--- NOTE | 2025-03-05 17:25 | NUR ---
SUMMARY PT WAS RESTLESS MOST OF SHIFT. MORE COMFORTABLE UP IN RECLINER AT THIS TIME. DAUGHTER BEDSIDE. DR KRAUSE ORDERED A MARTINEZ BRACE AND WAIST/VELCRO SLING TO BE PLACED ON PT. [facility] CONTACTED BY PAINT STRIPING MACHINE OPERATOR, UNABLE TO DELIVER TODAY. NEED TO F/U TOMORROW. PT'S RUE IN SPLINT/PINKY WRAP AND PROPPED UP ON PILLOWS. TELE REPORTED PT HAD EPISODE OF R ON T PVC; PT ASYMPTOMATIC. DR GRAHAM NOTIFIED AND NO NEW ORDERS AT THIS TIME. CALL LIGHT IN REACH.
[2025-03-05] MEDS ORDERED: Misc. Tablet PO SCH (21:00)
--- NOTE | 2025-03-06 01:12 | NUR ---
RN TO ROOM TO ROUND; PT SLEEPING, NC IN PLACE. EQUAL AND UNLABORED BREATHS, CALL LIGHT WITHIN REACH.
--- NOTE | 2025-03-06 04:53 | NUR ---
SHIFT SUMMARY NO ACUTE EVENTS OVERNIGHT. PT TRANSFERRED BACK TO BED EARLY IN SHIFT AND HAS REMAINED IN BED SINCE. PT C/O PAIN PRIOR TO FALLING ASLEEP AND WAS REPOSITIONED; PT REPORTS RELIEF AFTER REPOSITIONING IF SHE DOES NOT ATTEMPT TO MOVE HER ARM. PT REMAINS ON OXYGEN AND IS AT BASELINE 2L. PT DID REQUEST ONE RESPIRATORY TREATMENT NEAR START OF SHIFT.
[2025-03-06 04:57] VITALS: BP 134/84
[2025-03-06 05:29] LABS: BASOPHILS ABSOLUTE AUTO 0.05 K/mm3 (0.00-0.23); BASOPHILS PERCENT AUTO 1 % (0-2); EOSINOPHILS ABSOLUTE AUTO 0.21 K/mm3 (0.00-0.68); EOSINOPHILS PERCENT AUTO 3 % (0-6); Hematocrit 24.5 % (33.0-51.0); Hemoglobin 7.0 g/dL (11.5-16.0); IMMATURE GRAN ABSOLUTE AUTO 0.06 K/mm3 (0.00-0.10); IMMATURE GRAN PERCENT AUTO 1 % (0-1); LYMPHOCYTES ABSOLUTE AUTO 0.96 K/mm3 (0.84-5.20); LYMPHOCYTES PERCENT AUTO 15 % (21-46); MONOCYTES ABSOLUTE AUTO 0.81 K/mm3 (0.16-1.47); MONOCYTES PERCENT AUTO 12 % (4-13); Mean Corpuscular HGB Conc 28.6 g/dL (31.5-36.5); Mean Corpuscular Volume 79 fL (80-100); NEUTROPHILS ABSOLUTE AUTO 4.46 K/mm3 (1.96-9.15); NEUTROPHILS PERCENT AUTO 68 % (41-73); NRBC ABSOLUTE 0.00 K/mm3 (0.00-0.02); NRBC Auto 0.0 /100 WBC (0.0-0.2); Platelet Count 219 K/mm3 (150-400); RDW Coefficient Variation 16.9 % (11.7-14.2); RDW Standard Deviation 47.8 fL (35.1-46.3)
[2025-03-06 05:53] LABS: Alanine Aminotransfer (ALT/SGP 15.0 U/L (12-78); Albumin, Blood 3.1 g/dL (3.4-5.0); Albumin/Globulin Ratio 1.1 (0.8-1.8); Anion Gap 5.0 mmol/L (3-11); Aspartate Aminotrans (AST/SGOT 30.0 U/L (12-37); Bilirubin, Total 1.0 mg/dL (0.1-1.0); Blood Urea Nitrogen 16.0 mg/dL (8-24); CO2, Blood 36.0 mmol/L (21-32); Calcium, Blood 8.8 mg/dL (8.5-10.1); Chloride, Blood 94.0 mmol/L (98-108); Creatinine, Blood 1.12 mg/dL (0.40-1.00); Globulin, Blood 2.9 g/dL (2.2-4.0); Glucose, Blood 142.0 mg/dL (70-99); Potassium, Blood 3.3 mmol/L (3.5-5.5); Sodium, Blood 132.0 mmol/L (136-145); Total Protein, Blood 6.0 g/dL (6.4-8.2)
[2025-03-06 07:19] VITALS: BP 132/71
[2025-03-06 10:37] VITALS: BP 132/85
[2025-03-06 12:02] LABS: Hematocrit 24.0 % (33.0-51.0); Hemoglobin 7.1 g/dL (11.5-16.0)
[2025-03-06 14:35] VITALS: BP 123/70
--- NOTE | 2025-03-06 17:43 | NUR ---
shift summary: patient is alert and orietned x4 & cooperative with her care, is able to make needs known & uses call light appropriately. patient is on tele showing afib with rate in 70-80's, did have a pause while this rn was in care. patient asymptomatic during the pause. patient worked with pt & ot today and they are reccomending SNF upon discharge and patient is agreeable. patient sat up in the chair most of the day and was medicated for pain throughout the shift. patient is a 1 person to stand by assist when moving from chair to bed. family at bedside throughout the shift. patient currently eating dinner,call light within reach & stating nothing else is needed at this time.
[2025-03-06 19:49] VITALS: BP 125/59
[2025-03-06 21:28] LABS: Ferritin, Serum 21.0 ng/mL (8-252); Total Iron Binding Capacity 345.0 ug/dL (250-450)
[2025-03-07 04:31] VITALS: BP 128/82
[2025-03-07 05:08] LABS: BASOPHILS ABSOLUTE AUTO 0.05 K/mm3 (0.00-0.23); BASOPHILS PERCENT AUTO 1 % (0-2); EOSINOPHILS ABSOLUTE AUTO 0.17 K/mm3 (0.00-0.68); EOSINOPHILS PERCENT AUTO 3 % (0-6); Hematocrit 25.1 % (33.0-51.0); Hemoglobin 7.4 g/dL (11.5-16.0); IMMATURE GRAN ABSOLUTE AUTO 0.05 K/mm3 (0.00-0.10); IMMATURE GRAN PERCENT AUTO 1 % (0-1); LYMPHOCYTES ABSOLUTE AUTO 0.96 K/mm3 (0.84-5.20); LYMPHOCYTES PERCENT AUTO 15 % (21-46); MONOCYTES ABSOLUTE AUTO 0.67 K/mm3 (0.16-1.47); MONOCYTES PERCENT AUTO 11 % (4-13); Mean Corpuscular HGB Conc 29.5 g/dL (31.5-36.5); Mean Corpuscular Volume 78 fL (80-100); NEUTROPHILS ABSOLUTE AUTO 4.37 K/mm3 (1.96-9.15); NEUTROPHILS PERCENT AUTO 70 % (41-73); NRBC ABSOLUTE 0.02 K/mm3 (0.00-0.02); NRBC Auto 0.3 /100 WBC (0.0-0.2); Platelet Count 241 K/mm3 (150-400); RDW Coefficient Variation 16.9 % (11.7-14.2); RDW Standard Deviation 48.7 fL (35.1-46.3)
[2025-03-07 05:34] LABS: Alanine Aminotransfer (ALT/SGP 16.0 U/L (12-78); Albumin, Blood 3.1 g/dL (3.4-5.0); Albumin/Globulin Ratio 1.0 (0.8-1.8); Anion Gap 6.0 mmol/L (3-11); Aspartate Aminotrans (AST/SGOT 27.0 U/L (12-37); Bilirubin, Total 1.0 mg/dL (0.1-1.0); Blood Urea Nitrogen 17.0 mg/dL (8-24); CO2, Blood 35.0 mmol/L (21-32); Calcium, Blood 8.8 mg/dL (8.5-10.1); Chloride, Blood 93.0 mmol/L (98-108); Creatinine, Blood 1.16 mg/dL (0.40-1.00); Globulin, Blood 3.1 g/dL (2.2-4.0); Glucose, Blood 130.0 mg/dL (70-99); Potassium, Blood 3.0 mmol/L (3.5-5.5); Sodium, Blood 131.0 mmol/L (136-145); Total Protein, Blood 6.2 g/dL (6.4-8.2)
--- NOTE | 2025-03-07 05:48 | NUR ---
SHIFT SUMMARY PT ADMITTED FOR R HUMERAL SHAFT FX. PT A&O X4. PT RUE WRAPPED IN SPLINTED, ACED WRAPPED AND PROPPED ON PILLOWS. PAIN MANAGED WELL PER EMAR. PT ON 2L NC SP02 94%. REPRODUCER REPORTED PT AFIB @80. PLAN FOR PT TO DISCHARGE TO SNF AND F/U WITH [facility]PAT[facility]. PT PLAN OF CARE ONGOING. CALL LIGHT WITHIN REACH.
[2025-03-07 07:23] VITALS: BP 118/68
[2025-03-07] MEDS ORDERED: Formoterol/Mometasone MDI 5/100 mcg 13 GM INH SCH (09:00)
[2025-03-07] MEDS ORDERED: Fluticasone 0.05% Nasal Spray SCH (09:00)
[2025-03-07] MEDS ORDERED: Diltiazem HCl 180 MG Cap.CD PO SCH (09:00)
[2025-03-07] MEDS ORDERED: Sod Ferric Gluc Complx/Sucrose 125 MG in NS 100 ML IV SCH (12:00)
[2025-03-07 14:24] VITALS: BP 104/52
[2025-03-07] MEDS ORDERED: Polyethylene Glycol 3350 17 gm PO PRN (15:05)
[2025-03-07] MEDS ORDERED: Docusate Sodium/Senna 1 Tab PO PRN (15:05)
--- NOTE | 2025-03-07 19:44 | NUR ---
SHIFT SUMMARY PATIENT AOX4 ABLE TO MAKE NEEDS KNOWN. SHE DENIES CP OR SOB. SHE IS TOLERATING HER MEALS AND IS ABLE TO GO TO CHAIR FROM BED WITH ONE ASSIST. SHE WEARS HER ARM BRACE. HER ARM AND HAND IS SWOLLEN AND BRUISED HOSP AND [facility] AWARE. ROMANA SAYS TO ELEVATE WITH PILLOWS AND USE UPPER EXTREMITY TYESHA HOSE. SHE DID KEERTHI DOWN TO 37 UNSUSTAINED NIGHT HOSPITALIST AWARE.
[2025-03-07 19:51] VITALS: BP 109/61
[2025-03-08] VITALS (12 sets, daily range): BP systolic 98–157; BP diastolic 49–89
[2025-03-08 05:18] LABS: BASOPHILS ABSOLUTE AUTO 0.05 K/mm3 (0.00-0.23); BASOPHILS PERCENT AUTO 1 % (0-2); EOSINOPHILS ABSOLUTE AUTO 0.15 K/mm3 (0.00-0.68); EOSINOPHILS PERCENT AUTO 3 % (0-6); Hematocrit 21.3 % (33.0-51.0); Hemoglobin 6.3 g/dL (11.5-16.0); IMMATURE GRAN ABSOLUTE AUTO 0.07 K/mm3 (0.00-0.10); IMMATURE GRAN PERCENT AUTO 1 % (0-1); LYMPHOCYTES ABSOLUTE AUTO 0.80 K/mm3 (0.84-5.20); LYMPHOCYTES PERCENT AUTO 14 % (21-46); MONOCYTES ABSOLUTE AUTO 0.65 K/mm3 (0.16-1.47); MONOCYTES PERCENT AUTO 12 % (4-13); Mean Corpuscular HGB Conc 29.6 g/dL (31.5-36.5); Mean Corpuscular Volume 79 fL (80-100); NEUTROPHILS ABSOLUTE AUTO 3.86 K/mm3 (1.96-9.15); NEUTROPHILS PERCENT AUTO 69 % (41-73); NRBC ABSOLUTE 0.03 K/mm3 (0.00-0.02); NRBC Auto 0.5 /100 WBC (0.0-0.2); Platelet Count 227 K/mm3 (150-400); RDW Coefficient Variation 17.1 % (11.7-14.2); RDW Standard Deviation 48.8 fL (35.1-46.3)
--- NOTE | 2025-03-08 05:28 | NUR ---
SHIFT SUMMARY PT ADMITTED FOR R HUMERAL SHAFT FX. PT A&O X4. PT RUE SPLINTED, PINKY WRAPPED, AND ELEVATED ON PILLOWS. PAIN MANAGED WELL PER EMAR. PT ON 2L O2 NC SPO2 95%. PT AFIB @[address] M[address]INE OPERATOR. PLAN FOR PT TO DISCHARGE TO SNF AND F/U WITH [facility]. PLAN OF CARE ONGOING. CALL LIGHT WITHIN REACH.
[2025-03-08 05:44] LABS: Alanine Aminotransfer (ALT/SGP 15.0 U/L (12-78); Albumin, Blood 2.8 g/dL (3.4-5.0); Albumin/Globulin Ratio 1.0 (0.8-1.8); Anion Gap 6.0 mmol/L (3-11); Aspartate Aminotrans (AST/SGOT 41.0 U/L (12-37); Bilirubin, Total 1.1 mg/dL (0.1-1.0); Blood Urea Nitrogen 16.0 mg/dL (8-24); CO2, Blood 36.0 mmol/L (21-32); Calcium, Blood 8.5 mg/dL (8.5-10.1); Chloride, Blood 93.0 mmol/L (98-108); Creatinine, Blood 1.15 mg/dL (0.40-1.00); Globulin, Blood 2.7 g/dL (2.2-4.0); Glucose, Blood 124.0 mg/dL (70-99); Potassium, Blood 3.1 mmol/L (3.5-5.5); Sodium, Blood 132.0 mmol/L (136-145); Total Protein, Blood 5.5 g/dL (6.4-8.2)
[2025-03-08] MEDS ORDERED: NS 250 ML IV PRN (05:55)
[2025-03-08 14:15] LABS: Hematocrit 24.6 % (33.0-51.0); Hemoglobin 7.3 g/dL (11.5-16.0)
[2025-03-08] MEDS ORDERED: Insulin Regular 100 UNIT/ML 10ML Vial SC SCH (16:30)
--- NOTE | 2025-03-08 16:36 | NUR ---
SHIFT SUMMARY NO ACUTE CHANGES THIS SHIFT. ADMITTED ON 03/05 FOR R HUMERAL FRACTURE. A&O x4. ON TELE - A-FIB IN 60'S PER TELEVISION [place] DIRECTOR. CURRENTLY ON 2L O2 NC w/SATS 93%. HGB 6.3 THIS AM, RECEIVED 1 UNIT OF BLOOD - INCREASED TO 7.3 ON REDRAW. MD PATRICK NOTIFIED & CONSULTED. +1 EDEMA IN R HAND, IMPROVED FROM PRIOR ASSESSMENT. UP TO CHAIR TODAY w/2PA. PUREWICK IN PLACE TO SUCTION, DRAINING CLEAR YELLOW URINE. CURRENTLY RESTING IN CHAIR, CALL LIGHT WITHIN REACH.
--- NOTE | 2025-03-09 04:38 | NUR ---
NOC SUMMARY- PAIN MANAGED WELL. PT HAS BEEN RESTING QUIETLY. PT VOIDING VIA PUREWICK. PT REPOSITIONED TOLERATED. CALL LIGHT IN REACH.
[2025-03-09 06:03] LABS: BASOPHILS ABSOLUTE AUTO 0.05 K/mm3 (0.00-0.23); BASOPHILS PERCENT AUTO 1 % (0-2); EOSINOPHILS ABSOLUTE AUTO 0.14 K/mm3 (0.00-0.68); EOSINOPHILS PERCENT AUTO 2 % (0-6); Hematocrit 24.7 % (33.0-51.0); Hemoglobin 7.1 g/dL (11.5-16.0); IMMATURE GRAN ABSOLUTE AUTO 0.11 K/mm3 (0.00-0.10); IMMATURE GRAN PERCENT AUTO 2 % (0-1); LYMPHOCYTES ABSOLUTE AUTO 0.91 K/mm3 (0.84-5.20); LYMPHOCYTES PERCENT AUTO 13 % (21-46); MONOCYTES ABSOLUTE AUTO 0.82 K/mm3 (0.16-1.47); MONOCYTES PERCENT AUTO 12 % (4-13); Mean Corpuscular HGB Conc 28.7 g/dL (31.5-36.5); Mean Corpuscular Volume 82 fL (80-100); NEUTROPHILS ABSOLUTE AUTO 4.85 K/mm3 (1.96-9.15); NEUTROPHILS PERCENT AUTO 71 % (41-73); NRBC ABSOLUTE 0.05 K/mm3 (0.00-0.02); NRBC Auto 0.7 /100 WBC (0.0-0.2); Platelet Count 254 K/mm3 (150-400); RDW Coefficient Variation 17.2 % (11.7-14.2); RDW Standard Deviation 50.4 fL (35.1-46.3)
[2025-03-09 06:31] LABS: Anion Gap 4.0 mmol/L (3-11); Blood Urea Nitrogen 16.0 mg/dL (8-24); CO2, Blood 37.0 mmol/L (21-32); Calcium, Blood 9.1 mg/dL (8.5-10.1); Chloride, Blood 96.0 mmol/L (98-108); Creatinine, Blood 1.11 mg/dL (0.40-1.00); Glucose, Blood 124.0 mg/dL (70-99); Potassium, Blood 3.3 mmol/L (3.5-5.5); Sodium, Blood 134.0 mmol/L (136-145)
[2025-03-09 07:07] VITALS: BP 123/60
--- NOTE | 2025-03-09 13:45 | NUR ---
PT BACK TO BED AFTER SITTING UP IN CHAIR FOR THE MAJORITY OF THE MORNING/EARLY AFTERNOON. TRANSFERRED WITH USE OF SATNAM WALKER AND TWO ASSIST/GAITBELT.
[2025-03-09 15:11] VITALS: BP 118/62
[2025-03-09 19:43] VITALS: BP 152/74
[2025-03-09 23:44] VITALS: BP 104/59
[2025-03-10 04:18] VITALS: BP 146/75
--- NOTE | 2025-03-10 04:27 | NUR ---
SHIFT SUMMARY DAVID WAS ALERT AND FULLY ORIENTED ON ASSESSMENT. STOOL SAMPLE SENT TO LAB. PT PAIN MODERATELY WELL MANAGED. PT DENIES SOB, NAUSEA, AND CHEST PAIN. ARM BRACE IN PLACE. CIRCULATION INTACT TO ALL EXTS. NO ACUTE EVENTS TONIGHT. NO NOTED CHANGES TO PT CONDITION.
[2025-03-10 05:04] LABS: BASOPHILS ABSOLUTE AUTO 0.06 K/mm3 (0.00-0.23); BASOPHILS PERCENT AUTO 1 % (0-2); EOSINOPHILS ABSOLUTE AUTO 0.14 K/mm3 (0.00-0.68); EOSINOPHILS PERCENT AUTO 2 % (0-6); Hematocrit 28.5 % (33.0-51.0); Hemoglobin 8.1 g/dL (11.5-16.0); IMMATURE GRAN ABSOLUTE AUTO 0.16 K/mm3 (0.00-0.10); IMMATURE GRAN PERCENT AUTO 2 % (0-1); LYMPHOCYTES ABSOLUTE AUTO 0.91 K/mm3 (0.84-5.20); LYMPHOCYTES PERCENT AUTO 11 % (21-46); MONOCYTES ABSOLUTE AUTO 0.82 K/mm3 (0.16-1.47); MONOCYTES PERCENT AUTO 10 % (4-13); Mean Corpuscular HGB Conc 28.4 g/dL (31.5-36.5); Mean Corpuscular Volume 83 fL (80-100); NEUTROPHILS ABSOLUTE AUTO 5.98 K/mm3 (1.96-9.15); NEUTROPHILS PERCENT AUTO 74 % (41-73); NRBC ABSOLUTE 0.06 K/mm3 (0.00-0.02); NRBC Auto 0.7 /100 WBC (0.0-0.2); Platelet Count 299 K/mm3 (150-400); RDW Coefficient Variation 18.0 % (11.7-14.2); RDW Standard Deviation 51.8 fL (35.1-46.3)
[2025-03-10 05:28] LABS: Anion Gap 6.0 mmol/L (3-11); Blood Urea Nitrogen 15.0 mg/dL (8-24); CO2, Blood 36.0 mmol/L (21-32); Calcium, Blood 9.0 mg/dL (8.5-10.1); Chloride, Blood 95.0 mmol/L (98-108); Creatinine, Blood 1.05 mg/dL (0.40-1.00); Glucose, Blood 132.0 mg/dL (70-99); Potassium, Blood 3.3 mmol/L (3.5-5.5); Sodium, Blood 134.0 mmol/L (136-145)
[2025-03-10 07:25] VITALS: BP 117/56
[2025-03-10 12:24] LABS: Stool Occult Blood Guaiac 1 Pos (Neg)
[2025-03-10] MEDS ORDERED: Peg/Electrolytes 4,000 ML BTL PO STA ×2 (12:38→15:54)
[2025-03-10 12:51] VITALS: BP 114/71
--- NOTE | 2025-03-10 16:37 | NUR ---
SHIFT SUMMARY PATIENT IS AOX4, RIGHT ARM IN IMMOBILZER/HARD SLING. SWELLING AND BRUISING NOTED TO RIGHT ARM THROUGHT THE HAND AND FINGERS. CAP REFILL WNL. PULSES PALPABLE. ICE TO RIGHT ARM IN CHAIR T/O DAY. ELEVATED ON PILLOWS. PATIENT HAVING BOWEL PREP FOR COLONOSCOPY. LIQUID BROWN STOOLS ARE FREQUENT. PATIENT IS A SBA WITH GB AND SATNAM WALKER. VSS. NPO AT THIS TIME. USES CALL LIGHT APPROPRIATELY.
[2025-03-10 19:07] VITALS: BP 140/62
[2025-03-10 22:58] VITALS: BP 125/76
[2025-03-11] VITALS (13 sets, daily range): BP systolic 98–147; BP diastolic 56–112
[2025-03-11 05:37] LABS: BASOPHILS ABSOLUTE AUTO 0.03 K/mm3 (0.00-0.23); BASOPHILS PERCENT AUTO 1 % (0-2); EOSINOPHILS ABSOLUTE AUTO 0.11 K/mm3 (0.00-0.68); EOSINOPHILS PERCENT AUTO 2 % (0-6); Hematocrit 24.4 % (33.0-51.0); Hemoglobin 7.3 g/dL (11.5-16.0); IMMATURE GRAN ABSOLUTE AUTO 0.12 K/mm3 (0.00-0.10); IMMATURE GRAN PERCENT AUTO 2 % (0-1); LYMPHOCYTES ABSOLUTE AUTO 0.56 K/mm3 (0.84-5.20); LYMPHOCYTES PERCENT AUTO 10 % (21-46); MONOCYTES ABSOLUTE AUTO 0.66 K/mm3 (0.16-1.47); MONOCYTES PERCENT AUTO 11 % (4-13); Mean Corpuscular HGB Conc 29.9 g/dL (31.5-36.5); Mean Corpuscular Volume 82 fL (80-100); NEUTROPHILS ABSOLUTE AUTO 4.35 K/mm3 (1.96-9.15); NEUTROPHILS PERCENT AUTO 75 % (41-73); NRBC ABSOLUTE 0.03 K/mm3 (0.00-0.02); NRBC Auto 0.5 /100 WBC (0.0-0.2); Platelet Count 257 K/mm3 (150-400); RDW Coefficient Variation 19.4 % (11.7-14.2); RDW Standard Deviation 53.1 fL (35.1-46.3)
[2025-03-11 05:56] LABS: Magnesium, Blood 1.6 mg/dL (1.6-2.4)
[2025-03-11 06:00] LABS: Anion Gap 5.0 mmol/L (3-11); Blood Urea Nitrogen 11.0 mg/dL (8-24); CO2, Blood 39.0 mmol/L (21-32); Calcium, Blood 8.2 mg/dL (8.5-10.1); Chloride, Blood 93.0 mmol/L (98-108); Creatinine, Blood 0.94 mg/dL (0.40-1.00); Glucose, Blood 135.0 mg/dL (70-99); Potassium, Blood 2.4 mmol/L (3.5-5.5); Sodium, Blood 135.0 mmol/L (136-145)
[2025-03-11] MEDS ORDERED: Peg/Electrolytes 4,000 ML BTL PO ONE ×2 (06:00→15:00)
--- NOTE | 2025-03-11 06:17 | NUR ---
SHIFT SUMMARY DAVID WAS ALERT AND FULLY ORIENTED ON ASSESSMENT. PT STOOLS ALMOST CLEAR AT THIS TIME, CURRENTLY DRINKING MORE GOLYTELY. PT SENSATION AND CIRCULATION INTACT TO BUE'S. TELE NOTIFIED US TO 2, 3 SECOND PAUSES TONIGHT, HOSPITALIST CONTACTED, EKG ORDERED. PT AM LABS CRITICAL FOR LOW POTASSIUM, HOSPITALIST CONTACTED. POTASSIUM ORDERED. PT AYSMYPTOMATIC FOR CARDIAC CONDITON. DENIES SOB, CHEST PAIN, NAUSEA. NO OTHER EVENTS THIS SHIFT.
[2025-03-11 18:37] LABS: Hematocrit 28.6 % (33.0-51.0); Hemoglobin 8.4 g/dL (11.5-16.0)
[2025-03-11 19:09] LABS: Magnesium, Blood 1.6 mg/dL (1.6-2.4); Thyroid Stimulating Hormone 91.1 uIU/mL (0.360-4.800)
--- NOTE | 2025-03-11 19:15 | NUR ---
PT TO GI PROCEDURE WITH STAMP REDEMPTION CLERK
--- NOTE | 2025-03-11 19:45 | NUR ---
03/11/251944 Jennifer Neumann History, Chart, Medications and Allergies reviewed before start of procedure.DR GUTIERREZ PROVIDING ANESTHESIA. BITE BLOCK AND POM @10 LITER PRIOT TO START OF PROCEDURE
--- NOTE | 2025-03-11 22:00 | NUR ---
PT RETURNED TO ROOM FROM PACU; RT TO ROOM TO PLACE PT CPAP ON.
[2025-03-12] VITALS (7 sets, daily range): BP systolic 93–143; BP diastolic 45–77
[2025-03-12 04:02] LABS: BASOPHILS ABSOLUTE AUTO 0.05 K/mm3 (0.00-0.23); BASOPHILS PERCENT AUTO 1 % (0-2); EOSINOPHILS ABSOLUTE AUTO 0.09 K/mm3 (0.00-0.68); EOSINOPHILS PERCENT AUTO 2 % (0-6); Hematocrit 24.8 % (33.0-51.0); Hemoglobin 7.2 g/dL (11.5-16.0); IMMATURE GRAN ABSOLUTE AUTO 0.10 K/mm3 (0.00-0.10); IMMATURE GRAN PERCENT AUTO 2 % (0-1); LYMPHOCYTES ABSOLUTE AUTO 0.75 K/mm3 (0.84-5.20); LYMPHOCYTES PERCENT AUTO 13 % (21-46); MONOCYTES ABSOLUTE AUTO 0.59 K/mm3 (0.16-1.47); MONOCYTES PERCENT AUTO 10 % (4-13); Mean Corpuscular HGB Conc 29.0 g/dL (31.5-36.5); Mean Corpuscular Volume 84 fL (80-100); NEUTROPHILS ABSOLUTE AUTO 4.14 K/mm3 (1.96-9.15); NEUTROPHILS PERCENT AUTO 72 % (41-73); NRBC ABSOLUTE 0.00 K/mm3 (0.00-0.02); NRBC Auto 0.0 /100 WBC (0.0-0.2); Platelet Count 232 K/mm3 (150-400); RDW Coefficient Variation 20.0 % (11.7-14.2); RDW Standard Deviation 53.1 fL (35.1-46.3)
[2025-03-12 04:28] LABS: Anion Gap 4.0 mmol/L (3-11); Blood Urea Nitrogen 7.0 mg/dL (8-24); CO2, Blood 40.0 mmol/L (21-32); Calcium, Blood 8.7 mg/dL (8.5-10.1); Chloride, Blood 95.0 mmol/L (98-108); Creatinine, Blood 0.84 mg/dL (0.40-1.00); Glucose, Blood 122.0 mg/dL (70-99); Potassium, Blood 3.0 mmol/L (3.5-5.5); Sodium, Blood 136.0 mmol/L (136-145)
--- NOTE | 2025-03-12 04:28 | NUR ---
SHIFT SUMMARY AFTER PT RETURNED FROM PROCEDURE, PT HOME CPAP WAS PLACED ON PT BY RT. PT CONTINUOUS BIOX ALARMED INTERMITTENTLY THROUGHOUT THE SHIFT. PT REPORTS SHE IS NOT USED TO WEARING HER HOME CPAP AND REMOVES WHILE SLEEPING. RT NOTIFIED THAT PT CONTINUES TO DESATURATE TO MID 80% WITH CPAP ON, RT PROVIDES MASK FOR PT. PT REPOSITIONED AND ENCOURAGED TO COUGH. MASK WAS PLACED AT 6L O2 VIA NC; PT SATURATIONS IMPROVED TO MID 90s% TO 100%. PT RIGHT ARM WITH INCREASED EDEMA AND DISCOLORATION; PHILOSOPHY LECTURER DOPPLER EXTREMITY AND PULSE SITE WAS MARKED. PT C/O OF N/T TO RIGHT HAND/PAIN TO RIGHT SHOULDER, ELBOW, HAND. PUREWICK PLACED FOR PT COMFORT DURING SHIFT.
[2025-03-12 16:34] LABS: Hematocrit 25.6 % (33.0-51.0); Hemoglobin 7.5 g/dL (11.5-16.0)
--- NOTE | 2025-03-12 17:26 | NUR ---
SHIFT SUMMARY ADMITTED ON 03/05 FOR R HUMERAL FRACTURE. NO ACUTE CHANGES THIS SHIFT. A&O x4, VSS, HRR, LUNGS CLEAR. ON TELE- A-FIB, NO EVENTS REPORTED BY GRAPE CRUSHER. CURRENTLY ON 3L O2 NC, STATES 2-3L BASELINE. R SHOUDLER w/SPLINT. SWELLING & BRUISING NOTED ALONG R ARM, PULSE STRONG, CONFIRMED w/DOPLER. PAIN w/MOVEMENT OF ARM, CONTROLLED WELL PER EMAR. WORKED w/OT TODAY, AMBULATED IN ROOM & UP TO CHAIR. CURRENTLY RESTING IN BED w/FAMILY AT BEDSIDE. CALL LIGHT WITHIN REACH.
[2025-03-13 00:45] VITALS: BP 109/64
[2025-03-13 04:11] LABS: BASOPHILS ABSOLUTE AUTO 0.04 K/mm3 (0.00-0.23); BASOPHILS PERCENT AUTO 1 % (0-2); EOSINOPHILS ABSOLUTE AUTO 0.10 K/mm3 (0.00-0.68); EOSINOPHILS PERCENT AUTO 2 % (0-6); Hematocrit 28.6 % (33.0-51.0); Hemoglobin 8.4 g/dL (11.5-16.0); IMMATURE GRAN ABSOLUTE AUTO 0.16 K/mm3 (0.00-0.10); IMMATURE GRAN PERCENT AUTO 3 % (0-1); LYMPHOCYTES ABSOLUTE AUTO 0.83 K/mm3 (0.84-5.20); LYMPHOCYTES PERCENT AUTO 14 % (21-46); MONOCYTES ABSOLUTE AUTO 0.62 K/mm3 (0.16-1.47); MONOCYTES PERCENT AUTO 11 % (4-13); Mean Corpuscular HGB Conc 29.4 g/dL (31.5-36.5); Mean Corpuscular Volume 85 fL (80-100); NEUTROPHILS ABSOLUTE AUTO 4.07 K/mm3 (1.96-9.15); NEUTROPHILS PERCENT AUTO 70 % (41-73); NRBC ABSOLUTE 0.03 K/mm3 (0.00-0.02); NRBC Auto 0.5 /100 WBC (0.0-0.2); Platelet Count 239 K/mm3 (150-400); RDW Coefficient Variation 21.6 % (11.7-14.2); RDW Standard Deviation 56.1 fL (35.1-46.3)
[2025-03-13 04:32] LABS: Anion Gap 4.0 mmol/L (3-11); Blood Urea Nitrogen 7.0 mg/dL (8-24); CO2, Blood 38.0 mmol/L (21-32); Calcium, Blood 9.3 mg/dL (8.5-10.1); Chloride, Blood 99.0 mmol/L (98-108); Creatinine, Blood 0.87 mg/dL (0.40-1.00); Glucose, Blood 130.0 mg/dL (70-99); Potassium, Blood 3.8 mmol/L (3.5-5.5); Sodium, Blood 137.0 mmol/L (136-145)
[2025-03-13 06:12] VITALS: BP 149/71
--- NOTE | 2025-03-13 06:38 | NUR ---
SHIFT SUMMARY PT ADMITTED FOR R HUMERAL FX AFTER GLF. PAIN MANAGED WELL PER EMAR. PT RECEIVING 3L O2 VIA NC CONTINUOUS PULSE OX IN PLACE SPO2 94%. BUILDING CONSTRUCTION SUPERVISOR REPORTED AFIB @83. PT UTILIZING BEDSIDE COMMODE WITH 1 PERSON ASSIST, GAIT BELT, AND SATNAM WALKER. NO ACUTE CHANGES THIS SHIFT. VSS. CALL LIGHT WITHIN REACH.
[2025-03-13 07:00] VITALS: BP 138/77
[2025-03-13 11:15] VITALS: BP 152/79
[2025-03-13 15:33] VITALS: BP 140/77
--- NOTE | 2025-03-13 17:33 | NUR ---
SHIFT SUMMARY ADMITTED ON 03/05/25 D/T POOR PAIN MANAGEMENT OF PROXIMAL HUMERUS FRACTURE TO R ARM. A/O X4, VSS, CURRENTLY ON 3L O2 NASAL CANNULA. HX OF BASELINE 2-3L. PAIN CONTROLLED PER EMAR, INCREASED PAIN WITH MOVEMENT, SWELLING AND BRUISING NOTED, RADIAL PULSE PRESENT. TOLERATING DIET. 1 PERSON ASSIST TO COMMODE. WAITING FOR DISCHARGE PER DOCTORS REQUEST. CURENTLY RESTING IN BED, CALL LIGHT W/I REACH.
--- NOTE | 2025-03-13 17:48 | NUR ---
SHIFT SUMMARY ADMITTED FOR R HUMERAL FX - NONSURGICAL. A&O x4, VSS, HRR, LUNGS CLEAR. CURRENTLY ON 3L O2 NC - BASELINE 2-3L, SATS >93%. R SHOULDER w/SPLINT PLACED. R ARM w/BRUSING & EDEMA NOTED, PULSE PALPABLE. TOLERATING REGULAR DIET WELL. WORKED w/OT TODAY, AMBULATED IN ROOM & EXERCISED ARM. 1 PERSON ASSIST w/WALKER & GB TO BEDSIDE COMMODE. CURRENTLY RESTING IN BED w/CALL LIGHT WITHIN REACH. ASSUMED CARE FROM PREVIOUS ELYSIA LYON AT 1400.
[2025-03-13 19:34] VITALS: BP 147/86
[2025-03-14 00:44] VITALS: BP 121/64
[2025-03-14 05:03] VITALS: BP 133/84
--- NOTE | 2025-03-14 05:27 | NUR ---
SHIFT SUMMARY ADMITTED FOR R HUMERAL FX NONSURGICAL. A&O X4. PAIN MANAGED WELL PER EMAR. VSS. 3L O2 VIA NC WITH CONTINUOUS PULSE OX IN PLACE SPO2 93%. 1 PERSON ASSIST W/ SATNAM WALKER AND GAIT BELT TO BEDSIDE COMMODE. PT RESTING IN BED, RESPIRATION EVEN AND UNLABORED, NO DISTRESS NOTED. CALL LIGHT WITHIN REACH.
[2025-03-14 07:30] VITALS: BP 142/79
--- NOTE | 2025-03-14 09:43 | NUR ---
PT C/O MARTINEZ BRACE CUTTING INTO SKIN. OUTSOLE PARAFFINER NOTIFIED. PAGE OUT TO COMPANY WHO PLACED BRACE TO REASSES/REFIT PT.
[2025-03-14] MEDS ORDERED: BISA10S PR (10:23)
[2025-03-14] MEDS ORDERED: FT SENNA-S 8.61 EACH PO (10:24)
[2025-03-14] MEDS ORDERED: OXAYDO5 M1 PO (10:27)
[2025-03-14] MEDS ORDERED: MIRALAX17 GM PO (10:28)
[2025-03-14] MEDS ORDERED: HUMULIN R100 UNIT/1 SC (10:30)
[2025-03-14 14:54] VITALS: BP 143/81
--- NOTE | 2025-03-14 15:18 | NUR ---
ATTEMPTED TO GIVE REPORT TO [facility]. TRANSFERRED TO ANSWERING MACHINE. MESSAGE LEFT TO CALL BACK FOR REPORT.
== END 2025-03-14 15:33 | DRG 812 ==
LOC: ER 22:40 → SURS 22:41
PROVIDERS: Emergency Medicine; Family Medicine; Internal Medicine Gastroenterology; ADMIT Internal Medicine
PROC: 30233N1 Transfusion of Nonautologous Red Blood Cells into Peripheral Vein, Percutaneous Approach (ICD-10-PCS; principal; 2025-03-08)
PROC: 0DBM8ZZ Excision of Descending Colon, Via Natural or Artificial Opening Endoscopic (ICD-10-PCS; 2025-03-11)
PROC: 0DBL8ZZ Excision of Transverse Colon, Via Natural or Artificial Opening Endoscopic (ICD-10-PCS; 2025-03-11)
PROC: 0DBN8ZZ Excision of Sigmoid Colon, Via Natural or Artificial Opening Endoscopic (ICD-10-PCS; 2025-03-11)
PROC: 0DB98ZX Excision of Duodenum, Via Natural or Artificial Opening Endoscopic, Diagnostic (ICD-10-PCS; 2025-03-11 19:30)
PROC: 0DB78ZX Excision of Stomach, Pylorus, Via Natural or Artificial Opening Endoscopic, Diagnostic (ICD-10-PCS; 2025-03-11 19:30)
PROC: 0DBK8ZX Excision of Ascending Colon, Via Natural or Artificial Opening Endoscopic, Diagnostic (ICD-10-PCS; 2025-03-11 19:30)
DX: D62 Acute posthemorrhagic anemia (principal); S42.341A Displaced spiral fracture of shaft of humerus, right arm, initial encounter for closed fracture; I50.32 Chronic diastolic (congestive) heart failure; J96.11 Chronic respiratory failure with hypoxia; I13.0 Hypertensive heart and chronic kidney disease with heart failure and stage 1 through stage 4 chronic kidney disease, or unspecified chronic kidney disease; E87.1 Hypo-osmolality and hyponatremia; C18.2 Malignant neoplasm of ascending colon; Z68.41 Body mass index [BMI] 40.0-44.9, adult; W18.30XA Fall on same level, unspecified, initial encounter; I48.91 Unspecified atrial fibrillation; E03.9 Hypothyroidism, unspecified; E87.6 Hypokalemia; E11.22 Type 2 diabetes mellitus with diabetic chronic kidney disease; N18.30 Chronic kidney disease, stage 3 unspecified; E55.9 Vitamin D deficiency, unspecified; E66.01 Morbid (severe) obesity due to excess calories; G47.33 Obstructive sleep apnea (adult) (pediatric); K21.9 Gastro-esophageal reflux disease without esophagitis; E78.5 Hyperlipidemia, unspecified; G25.81 Restless legs syndrome; D12.3 Benign neoplasm of transverse colon; K63.5 Polyp of colon; K64.4 Residual hemorrhoidal skin tags; K31.89 Other diseases of stomach and duodenum; S70.02XA Contusion of left hip, initial encounter; J44.89 Other specified chronic obstructive pulmonary disease; E11.40 Type 2 diabetes mellitus with diabetic neuropathy, unspecified; D63.1 Anemia in chronic kidney disease; F32.A Depression, unspecified; Z79.899 Other long term (current) drug therapy; Z79.890 Hormone replacement therapy; Z87.19 Personal history of other diseases of the digestive system; Z90.710 Acquired absence of both cervix and uterus; Z90.49 Acquired absence of other specified parts of digestive tract; Z98.890 Other specified postprocedural states; Z79.84 Long term (current) use of oral hypoglycemic drugs; D50.9 Iron deficiency anemia, unspecified; Z79.01 Long term (current) use of anticoagulants; Z90.10 Acquired absence of unspecified breast and nipple
CPT/HCPCS: 29105; 36415; 36430; 71045; 71260; 73060; 74177; 76882; 80048; 80053; 82272; 82378; 82607; 82728; 82746; 82947; 83540; 83550; 83735; 83880; 84132; 84443; 84484; 85014; 85018; 85025; 85610; 86850; 86900; 86901; 86923; 88305; 88342; 93005; 93010; 94640; 94664; 94760; 94762; 96374; 96376; 97110; 97116; 97140; 97162; 97165; 97530; 97535; 99284-25; A9270; G0378; J2704; J2916; J7030; J7050; J7120; P9016; Q9967

== ENCOUNTER 2025-03-31 08:00 | Inpatient (IN) | payer MEDICARE ==
[2025-03-31] VITALS (22 sets, daily range): BP systolic 134–189; BP diastolic 71–109
[~2025-03-31] VITALS: Ht 162.6 cm; Wt 107.3 kg
[~2025-03-31 08:00] MED LIST changes: +ALBU2.5V5 INH; +ALDACTONE25 MG PO; +ATOR10 PO; +B-12 COMPL1000 MCG/2 IM; +BISA5EC PO; -Carafate1 GM/10 ML PO; +DILTIAZEM 24HR360 MG PO; +DULERA 100 MCG/13 GM INH; +DULERA 200 MCG-13 GM INH; +FLONASE ALLERG9.9 M2 INH; +FT SENNA-S 8.61 EACH PO; +HUMULIN R100 UNIT/1 SC; -METO25 PO; +METO25ER PO; +MIRALAX17 GM PO; +NITR.4SL SL; +OXAYDO5 M1 PO; +SUCR1 PO; +XARELTO15 MG PO
[2025-03-31] MEDS ORDERED: Ampicillin Sod/Sulbactam Sod 3 GM in NS 100 ML IV SCH ×2 (08:15→15:30)
[2025-03-31] MEDS ORDERED: Midazolam HCl 1MG / ML 2ML Vial ONE (08:39)
[2025-03-31] MEDS ORDERED: FentaNYL Citrate 50 MCG/ML 5 ML Injection ONE (08:39)
[2025-03-31] MEDS ORDERED: Rocuronium Bromide 10 MG/ML 5ML Injection IV ONE ×2 (08:41→11:11)
[2025-03-31] MEDS ORDERED: Bupivacaine 0.5% HCl 5 MG/ML 30MLVIAL ONE (08:55)
[2025-03-31] MEDS ORDERED: Ipratropium/Albuterol SulF 2.5-0.5MG/3 ML Amp ONE (09:07)
[2025-03-31] MEDS ORDERED: Ampicillin Sod/Sulbactam Sod 3 GM ONE (09:07)
[2025-03-31] MEDS ORDERED: Ipratropium/Albuterol SulF 2.5-0.5MG/3 ML Amp INH ONE (09:10)
[2025-03-31] MEDS ORDERED: Phenylephrine HCl 100 MCG/ML-NS 10MLSYR (1MG/10ML) ONE (09:14)
[2025-03-31] MEDS ORDERED: ePHEDrine Sulfate 50 MG/ML 1ML Injection ONE (09:14)
[2025-03-31 09:22] LABS: BASOPHILS ABSOLUTE AUTO 0.04 K/mm3 (0.00-0.23); BASOPHILS PERCENT AUTO 1 % (0-2); EOSINOPHILS ABSOLUTE AUTO 0.11 K/mm3 (0.00-0.68); EOSINOPHILS PERCENT AUTO 2 % (0-6); Hematocrit 31.7 % (33.0-51.0); Hemoglobin 9.3 g/dL (11.5-16.0); IMMATURE GRAN ABSOLUTE AUTO 0.02 K/mm3 (0.00-0.10); IMMATURE GRAN PERCENT AUTO 0 % (0-1); LYMPHOCYTES ABSOLUTE AUTO 0.75 K/mm3 (0.84-5.20); LYMPHOCYTES PERCENT AUTO 14 % (21-46); MONOCYTES ABSOLUTE AUTO 0.66 K/mm3 (0.16-1.47); MONOCYTES PERCENT AUTO 12 % (4-13); Mean Corpuscular HGB Conc 29.3 g/dL (31.5-36.5); Mean Corpuscular Volume 89 fL (80-100); NEUTROPHILS ABSOLUTE AUTO 3.79 K/mm3 (1.96-9.15); NEUTROPHILS PERCENT AUTO 71 % (41-73); NRBC ABSOLUTE 0.00 K/mm3 (0.00-0.02); NRBC Auto 0.0 /100 WBC (0.0-0.2); Platelet Count 344 K/mm3 (150-400); RDW Coefficient Variation 20.0 % (11.7-14.2); RDW Standard Deviation 64.9 fL (35.1-46.3)
[2025-03-31] MEDS ORDERED: Ondansetron HCl 2 MG / ML 2ML Vial IV PRN ×2 (09:35→13:50)
[2025-03-31 09:38] LABS: Anion Gap 6.0 mmol/L (3-11); Blood Urea Nitrogen 16.0 mg/dL (8-24); CO2, Blood 38.0 mmol/L (21-32); Calcium, Blood 9.0 mg/dL (8.5-10.1); Chloride, Blood 97.0 mmol/L (98-108); Creatinine, Blood 0.84 mg/dL (0.40-1.00); Glucose, Blood 120.0 mg/dL (70-99); Potassium, Blood 3.2 mmol/L (3.5-5.5); Sodium, Blood 138.0 mmol/L (136-145)
[2025-03-31] MEDS ORDERED: HYDROcodone 5-APAP 325 TAB PO PRN (09:40)
[2025-03-31] MEDS ORDERED: FentaNYL Citrate 50 MCG/ML 2 ML Injection IV PRN ×3 (09:40→13:55)
--- NOTE | 2025-03-31 09:50 | NUR ---
PT INTO SDS VIA W/C. ASSIST TO STAND W/ 2 RN'S AND WALKER FOR WT. PT W/ RIGHT UPPER ARM FX ON 03/17/25. ARM IN A BRACE. PT UNSTEADY ON FEET. PT HERE [facility] WEARING NC @ 3L/MIN. Patient confirms NPO status and agrees with scheduled surgery. Pre-Op teaching done. Pt verbalizes understanding. History, Chart, Medications and Allergies reviewed before start of procedure. PT'S DAUGHTER BROUGHT COPIED MAR FROM REHAB FACILITY.
--- NOTE | 2025-03-31 09:52 | NUR ---
PT REPORTS THAT SHE THREW UP THE 1ST ROUND OF PREP BUT WAS ABLE TO TOLERATE THE 2ND SET OF PILLS. LAST BM YULIANA FABIAN. AWARE
[2025-03-31] MEDS ORDERED: FLU VACC TS2025(65UP)/MF59C/PF 45 MCG/0.5 ML SYRINGE IM SCH (10:50)
[2025-03-31] MEDS ORDERED: Formoterol/Mometasone MDI 5/100 mcg 13 GM INH SCH (10:55)
[2025-03-31] MEDS ORDERED: Albuterol HFA200 ACT/6.7 GM INH INH PRN (10:55)
[2025-03-31] MEDS ORDERED: Albuterol HFA200 ACT/6.7 GM INH ONE (11:09)
[2025-03-31 11:20] LABS: pH Blood Arterial 7.39 (7.35-7.45)
[2025-03-31] MEDS ORDERED: Insulin Regular 100 UNIT/ML 10ML Vial SC SCH (12:00)
[2025-03-31] MEDS ORDERED: Ketorolac Tromethamine 30mg Vial ONE (13:40)
[2025-03-31] MEDS ORDERED: Sugammadex Sodium 200 MG/2ML SDV (100 MG/ML) ONE (13:40)
[2025-03-31] MEDS ORDERED: Ondansetron HCl 2 MG / ML 2ML Vial ONE ×2 (13:40→15:05)
[2025-03-31] MEDS ORDERED: HYDROmorphone HCl/Pf 1MG SYR IV PRN ×2 (13:50→13:55)
[2025-03-31] MEDS ORDERED: Albuterol 2.5 MG/3 ML VIAL INH PRN (13:55)
[2025-03-31] MEDS ORDERED: FentaNYL Citrate 50 MCG/ML 2 ML Injection ONE (14:40)
[2025-03-31] MEDS ORDERED: Prochlorperazine Edisylate 10 mg Vial ONE (15:17)
[2025-03-31] MEDS ORDERED: Potassium Chl 20MEQ/Water100ML 100 ML IV STA (15:22)
[2025-03-31] MEDS ORDERED: HYDROmorphone HCl/Pf 1MG SYR ONE (15:25)
--- NOTE | 2025-03-31 18:14 | NUR ---
ADMIT NOTE/SHIFT SUMMARY PT ALERT, DROWSY. SP02>90% ON 8L HIFLO, PT STATES 2-3 NC AT BASELINE. BIPAP AT NOC, HOME BIPAP IN ROOM. TELEMETRY SHOWS AFIB, HR 80'S. C/O OF 5/10 ABD PAIN. CAMPBELL CATHETER DRAINING YELLOW URINE TO GRAVITY. 4 ABD INCISIONS NOTED, NO DRAINAGE NOTED. STERISTRIPS IN PLACE. PT W/ R ARM FX, BRACE IN PLACE. BRACE REMOVED FOR SKIN CHECK, NO BREAKDOWN NOTED. PT FLOATED ON PILLOWS. ORIENTED TO ROOM, CALL LIGHT. DAUGHTER IN ROOM, NUMBER ON WHITE BOARD. PT SLEEPING IN ROOM COMFORTABLY, CALL LIGHT IN REACH.
--- NOTE | 2025-03-31 19:34 | NUR ---
ASSUMPTION OF CARE ASSUMMED PT'S CARE AT 1900,PT WIDE AWAKE LYING IN BED.PT COMPLAINING OF ABDOMINAL PAIN AND DRY MOUTH.PT GIVEN ICE CHIPS PER PT'S REQUEST.BEDSIDE REPORT COMPLETED,PLAN OF CARE REVIEWED.PT DENIES FURTHER NEEDS.CALL LIGHT AND PT'S ITEMS WITHIN REACH.SLING TO RIGHT ARM IN PLACE.MONITORING ONGOING PER CAREPLAN.
[2025-04-01] VITALS (10 sets, daily range): BP systolic 125–160; BP diastolic 60–103
[2025-04-01 03:53] LABS: BASOPHILS ABSOLUTE AUTO 0.04 K/mm3 (0.00-0.23); BASOPHILS PERCENT AUTO 1 % (0-2); EOSINOPHILS ABSOLUTE AUTO 0.01 K/mm3 (0.00-0.68); EOSINOPHILS PERCENT AUTO 0 % (0-6); Hematocrit 30.0 % (33.0-51.0); Hemoglobin 8.6 g/dL (11.5-16.0); IMMATURE GRAN ABSOLUTE AUTO 0.02 K/mm3 (0.00-0.10); IMMATURE GRAN PERCENT AUTO 0 % (0-1); LYMPHOCYTES ABSOLUTE AUTO 0.50 K/mm3 (0.84-5.20); LYMPHOCYTES PERCENT AUTO 6 % (21-46); MONOCYTES ABSOLUTE AUTO 0.73 K/mm3 (0.16-1.47); MONOCYTES PERCENT AUTO 9 % (4-13); Mean Corpuscular HGB Conc 28.7 g/dL (31.5-36.5); Mean Corpuscular Volume 90 fL (80-100); NEUTROPHILS ABSOLUTE AUTO 6.85 K/mm3 (1.96-9.15); NEUTROPHILS PERCENT AUTO 84 % (41-73); NRBC ABSOLUTE 0.00 K/mm3 (0.00-0.02); NRBC Auto 0.0 /100 WBC (0.0-0.2); Platelet Count 320 K/mm3 (150-400); RDW Coefficient Variation 19.6 % (11.7-14.2); RDW Standard Deviation 65.4 fL (35.1-46.3)
[2025-04-01 04:15] LABS: Anion Gap 4.0 mmol/L (3-11); Blood Urea Nitrogen 11.0 mg/dL (8-24); CO2, Blood 39.0 mmol/L (21-32); Calcium, Blood 8.3 mg/dL (8.5-10.1); Chloride, Blood 97.0 mmol/L (98-108); Creatinine, Blood 0.71 mg/dL (0.40-1.00); Glucose, Blood 150.0 mg/dL (70-99); Potassium, Blood 3.1 mmol/L (3.5-5.5); Sodium, Blood 137.0 mmol/L (136-145)
--- NOTE | 2025-04-01 06:42 | NUR ---
PT MONITORED DURING THE SHIFT,PRN PAIN MEDS ADMINISTERED ORDERED PER PT'S REQUEST.PT UP TO THE CHAIR X2 .PT SAT IN CHAIR BRIEFLY EACH TIME AND REQUESTED TO GO BACK TO BED.OXYGEN TITRATED DOWN TO 6L VIA HFNC.PT DENIES SOB,DENIES NEEDS AT THIS TIME.CALL LIGHT AND PT'S ITEMS WITHIN REACH.MONITORING ONGOING PER CAREPLAN.
[2025-04-01] MEDS ORDERED: Enoxaparin 40 MG/0.4 ML SYR SC SCH (09:00)
[2025-04-01] MEDS ORDERED: Diltiazem HCl 180 MG Cap.CD PO SCH (09:00)
[2025-04-01] MEDS ORDERED: Torsemide 20 MG TAB PO SCH (09:00)
[2025-04-01] MEDS ORDERED: Fluticasone 0.05% Nasal Spray SCH (09:00)
[2025-04-01] MEDS ORDERED: HYDROcodone 5-APAP 325 TAB PO PRN ×2 (11:40→11:45)
[2025-04-02 03:48] VITALS: BP 125/67
--- NOTE | 2025-04-02 04:51 | NUR ---
PT HAD CAMPBELL CATH IN PLACE. PER REPORT PT HAD CAMPBELL REMOVED AROUND 1800 ON 10/30. PT HAD NOT HAD ANY OUTPUT SINCE REMOVAL. BLADDER SCANNED PT WHICH SHOWED 270ML'S. NOTIFIED, RECHECK BLADDER SCAN IN 4 HOURS. ENCOURAGED PT TO CONTINUE TO TRY AND VOID. PUREWICK IN PLACE. PT DENIES ANY PAIN OR URGE TO VOID AT THIS TIME. WILL MONITOR PT AND RECHECK BLADDER SCAN.
[2025-04-02 04:58] LABS: Anion Gap 3.0 mmol/L (3-11); Blood Urea Nitrogen 7.0 mg/dL (8-24); CO2, Blood 37.0 mmol/L (21-32); Calcium, Blood 8.8 mg/dL (8.5-10.1); Chloride, Blood 98.0 mmol/L (98-108); Creatinine, Blood 0.77 mg/dL (0.40-1.00); Glucose, Blood 151.0 mg/dL (70-99); Magnesium, Blood 2.2 mg/dL (1.6-2.4); Phosphorus, Blood 2.4 mg/dL (2.5-4.9); Potassium, Blood 3.3 mmol/L (3.5-5.5); Sodium, Blood 135.0 mmol/L (136-145)
--- NOTE | 2025-04-02 06:26 | NUR ---
SHIFT SUMMARY PT A&OX4, CALM, COOPERATIVE TO CARE. HR IN THE 70'S, AFIB. SHE DENIES ANY CP/PRESSURE, NUMB/TINGLING, SBP STABLE. SpO2 RANGING FROM 90-96% ON 2-4L. PT DESATS WITH SLEEP. PT REPORTS SHE WEARS A CPAP AT HOME BUT DECLINES AT THIS TIME. SHE DENIES ANY SOB. PT HAS PUREWICK IN PLACE. PT HAD CAMPBELL CATH IN PLACE YESTERDAY, SINCE REMOVAL PT HAS NOT HAD ANY OUTPUT. ENCOURAGED PT T/O NIGHT TO TRY AND VOID, PT DENIES URGE TO GO, SHE DENIES ANY PAIN IN REGION. MD WAS NOTIFIED TO RESCAN BLADDER 4 HOURS FROM LAST SCAN. PT POD 1 FROM LAPROSCOPIC HEMICOLECTOMY. SHE HAS 4 LAP SITES. NO REDNESS/SWELLING/DRAINAGE FROM SITE. PT DOES HAVE SOME ABD PAIN, MEDICATING PER EMAR. PT HAS +BS, SOME MOD DISTENTION IN ABD. SHE HAS NOT HAD A BM T/O SHIFT. PT UNCOMFY IN BED, PT SLEEPING IN RECLINER T/O SHIFT. PT RESTING IN RECLINER AT THIS TIME. CALL LIGHT IN REACH. WILL MONITOR PT AND REPORT TO ONCOMING RN.
[2025-04-02] MEDS ORDERED: Potassium Phosphate Dibasic 30 MM in Dextrose 5% 500 ML IV STA (07:48)
[2025-04-02 07:59] VITALS: BP 130/70
[2025-04-02 09:56] LABS: pH Blood Venous 7.35 (7.34-7.37)
--- NOTE | 2025-04-02 10:21 | NUR ---
UPDATE PROVIDER CONTACTED REGARDING VBG RESULTS WITH ELEVATED CO2 RESULTS. PATIENT EXPERIENCING INCREASED CONFUSION AND INCREASED DIFFICULTY ANSWERING QUESTIONS. PER PROVIDER TO PLACE PATIENT ON HOME BIPAP. PROVIDER CONTACTED REGARDING CONCERNS FOR DECREASED BOWEL MOTILITY, HYPOACTIVE BOWEL TONES, NO PRESENCE OF FLATULENCE. NO NEW ORDERS PER PROVIDER DUE TO RECENT BOWEL SURGERY. THIS RN TO IMPLEMENT INCREASED PATIENT MOBILIZATION AND ENCOURAGING INCREASED ORAL HYDRATION.
[2025-04-02 12:36] VITALS: BP 127/76
[2025-04-02 15:20] VITALS: BP 137/64
[2025-04-02 15:24] LABS: BASOPHILS ABSOLUTE AUTO 0.03 K/mm3 (0.00-0.23); BASOPHILS PERCENT AUTO 0 % (0-2); EOSINOPHILS ABSOLUTE AUTO 0.20 K/mm3 (0.00-0.68); EOSINOPHILS PERCENT AUTO 2 % (0-6); Hematocrit 29.6 % (33.0-51.0); Hemoglobin 8.6 g/dL (11.5-16.0); IMMATURE GRAN ABSOLUTE AUTO 0.04 K/mm3 (0.00-0.10); IMMATURE GRAN PERCENT AUTO 1 % (0-1); LYMPHOCYTES ABSOLUTE AUTO 0.61 K/mm3 (0.84-5.20); LYMPHOCYTES PERCENT AUTO 7 % (21-46); MONOCYTES ABSOLUTE AUTO 0.86 K/mm3 (0.16-1.47); MONOCYTES PERCENT AUTO 10 % (4-13); Mean Corpuscular HGB Conc 29.1 g/dL (31.5-36.5); Mean Corpuscular Volume 91 fL (80-100); NEUTROPHILS ABSOLUTE AUTO 7.00 K/mm3 (1.96-9.15); NEUTROPHILS PERCENT AUTO 80 % (41-73); NRBC ABSOLUTE 0.00 K/mm3 (0.00-0.02); NRBC Auto 0.0 /100 WBC (0.0-0.2); Platelet Count 344 K/mm3 (150-400); RDW Coefficient Variation 19.2 % (11.7-14.2); RDW Standard Deviation 64.4 fL (35.1-46.3)
[2025-04-02 15:52] LABS: Alanine Aminotransfer (ALT/SGP 25.0 U/L (12-78); Albumin, Blood 2.8 g/dL (3.4-5.0); Albumin/Globulin Ratio 0.8 (0.8-1.8); Anion Gap 7.0 mmol/L (3-11); Aspartate Aminotrans (AST/SGOT 35.0 U/L (12-37); Bilirubin, Total 0.5 mg/dL (0.1-1.0); Blood Urea Nitrogen 7.0 mg/dL (8-24); CO2, Blood 34.0 mmol/L (21-32); Calcium, Blood 8.6 mg/dL (8.5-10.1); Chloride, Blood 97.0 mmol/L (98-108); Creatinine, Blood 0.79 mg/dL (0.40-1.00); Globulin, Blood 3.5 g/dL (2.2-4.0); Glucose, Blood 172.0 mg/dL (70-99); Potassium, Blood 3.8 mmol/L (3.5-5.5); Sodium, Blood 134.0 mmol/L (136-145); Total Protein, Blood 6.3 g/dL (6.4-8.2)
--- NOTE | 2025-04-02 17:59 | NUR ---
1245 PM - SPOKE WITH DR. PHAN IN PERSON REGARDING PT MENTATION. CONTINUED CONFUSION, DELIRIUM BUT CLEAR SPEECH AND ORIENTATED. NO PO DROOP. EQUAL STRENGTH BUT WEAK T/O. NOTIFIED OF R SIDED LEAN WITH AMBULATION, PT AND FAMILY REPORT NOT NEW. SUGGESTED CT HEAD DUE TO ACUTE CONFUSION THIS AM AND MD DECLINED. NO FURTHER ORDERS. 1635- SPOKE WITH DR. PHAN VIA PHONE NOTIFYING OF PATIENT ANXIETY, PER MD NO MEDICATION TO BE ORDERED AT THIS TIME DUE TO RENAL FXN AND PLAN FOR NON-PHARMACOLOGICAL METHODS.
--- NOTE | 2025-04-02 18:05 | NUR ---
SHIFT SUMMARY PATIENT IS ALERT AND ORIENTED, ABLE TO FOLLOW COMMANDS AND MAKE NEEDS KNOWN. PATIENT INCREASINGLY CONFUSED THIS AM THAT DIFFERS FROM BASELINE, CPAP NOT USED OVERNIGHT, PROVIDER CONTACTED REGARDING CHANGE IN CONDITION, NEW ORDERS RECEIVED. VBG RESULTED INDICATING HYPERCAPNIC RESPIRATORY FAILURE, PER PROVIDER, HOSPITALIST CONSULTED, NEW ORDERS RECEIVED. MENTATION HAS IMPROVED SHIFT PROGRESSED. TELE IN PLACE, AFIB 70'S-90'S, SPO2 >88% ON 6L VIA NC, CPAP WHILE ASLEEP OR WHEN TOLERATED WHILE AWAKE. CXR DONE, PATIENT PROVIDED INCENTIVE SPIROMETER AND INSTRUCTED ON PROPER USE. ABDOMEN IS MODERATELY DISTENDED, FIRM AND TENDER UPON PALPATION, 4 LAPROSCOPIC INCISIONS PRESENT, SUTURE CLOSURES, STERI STRIP INTACT, ABDOMINAL BINDER IN PLACE. PATIENT DENIES FLATULANCE THIS SHIFT, NO BOWEL MOVEMENT THIS SHIFT. PATIENT IS INCONTINENT OF URINE, PUREWICK IN PLACE AND DRAINING TO SUCTION. 2 PERSON ASSIST WITH FWW TO CHAIR. PATIENT IS LYING IN BED, BED IN LOWEST POSITION, CALL LIGHT WITHING REACH.
--- NOTE | 2025-04-02 18:49 | NUR ---
PROVIDER CONTACT PROVIDER CONTACTED REGARDING INCREASED OXYGEN DEMANDS, SPO2 88% ON 7L VIA NC, INCREASED FROM 6L, PATIENT WEARS 2L AT BASELINE. NEW ORDERS RECEIVED.
[2025-04-02] MEDS ORDERED: Furosemide 10 MG / ML 2ML Vial IV ONE (18:50)
[2025-04-02 19:34] VITALS: BP 121/61
[2025-04-02 23:53] VITALS: BP 154/78
[2025-04-03] VITALS (7 sets, daily range): BP systolic 126–167; BP diastolic 62–82
--- NOTE | 2025-04-03 06:23 | NUR ---
NO ACUTE EVENTS OVERNIGHT. PT WAS RESTLESS AND ANXIOUS MOST OF THE NIGHT. SENIOR INTERNAL AUDITOR PROVIDER NOTIFIED. ONE TIME ORDER OF ATARAX GIVEN. PT EVENTUALLY FELL ASLEEP. BED LOCKED IN LOWEST POSITION. CALL LIGHT WITHIN REACH. PURWICK IN PLACE.
--- NOTE | 2025-04-03 18:01 | NUR ---
SHIFT SUMMARY PATIENT IS ALERT AND ORIENTED, ABLE TO FOLLOW COMMANDS AND MAKE NEEDS KNOWN. VSS, TELE IN PLACE, A FIB IN 70'S, SPO2 >90 ON 5L VIA NC, CPAP AT NIGHT. PATIENT DENIES PRESENCE OF CHEST PAIN OR PRESSURE. ABDOMEN IS DISTENDED, FIRM, AND TENDER UPON PALPATION, 4 LAP SITES PRESENT, SUTURE CLOSURE, STERI STRIPS INTACT. PATIENT HAD 2 BMs THIS SHIFT. PUREWICK CATHETER IN PLACE, DRAINING TO SUCTION. PATIENT IS A 1P ASSIST WITH A HEMIWALKER TO THE BEDSIDE COMMODE. PATIENT IS UP IN BED, BED IN LOWEST POSITION, CALL LIGHT WITHIN REACH.
[2025-04-04 03:08] VITALS: BP 144/73
[2025-04-04 04:31] LABS: Anion Gap 7.0 mmol/L (3-11); Blood Urea Nitrogen 7.0 mg/dL (8-24); CO2, Blood 38.0 mmol/L (21-32); Calcium, Blood 9.2 mg/dL (8.5-10.1); Chloride, Blood 95.0 mmol/L (98-108); Creatinine, Blood 0.76 mg/dL (0.40-1.00); Glucose, Blood 131.0 mg/dL (70-99); Potassium, Blood 3.0 mmol/L (3.5-5.5); Sodium, Blood 137.0 mmol/L (136-145)
--- NOTE | 2025-04-04 05:54 | NUR ---
SHIFT SUMMARY: Pt wore CPAP for several hours though required an increase in LPM from 5 to 7 and even then was desat'ing to 80s, seemed to do better on NC. Only able to get IS to 750 mL - needs reinstruction and cueing. VSS. Dyspnea with movement. Pain in R shoulder - norco given. Pt feels R immobilizer is not fitting well - attempted to readjust a few times.
[2025-04-04 06:28] LABS: BASOPHILS ABSOLUTE AUTO 0.05 K/mm3 (0.00-0.23); BASOPHILS PERCENT AUTO 1 % (0-2); EOSINOPHILS ABSOLUTE AUTO 0.15 K/mm3 (0.00-0.68); EOSINOPHILS PERCENT AUTO 2 % (0-6); Hematocrit 30.1 % (33.0-51.0); Hemoglobin 8.6 g/dL (11.5-16.0); IMMATURE GRAN ABSOLUTE AUTO 0.04 K/mm3 (0.00-0.10); IMMATURE GRAN PERCENT AUTO 1 % (0-1); LYMPHOCYTES ABSOLUTE AUTO 0.46 K/mm3 (0.84-5.20); LYMPHOCYTES PERCENT AUTO 7 % (21-46); MONOCYTES ABSOLUTE AUTO 0.72 K/mm3 (0.16-1.47); MONOCYTES PERCENT AUTO 12 % (4-13); Mean Corpuscular HGB Conc 28.6 g/dL (31.5-36.5); Mean Corpuscular Volume 90 fL (80-100); NEUTROPHILS ABSOLUTE AUTO 4.80 K/mm3 (1.96-9.15); NEUTROPHILS PERCENT AUTO 77 % (41-73); NRBC ABSOLUTE 0.00 K/mm3 (0.00-0.02); NRBC Auto 0.0 /100 WBC (0.0-0.2); Platelet Count 310 K/mm3 (150-400); RDW Coefficient Variation 18.9 % (11.7-14.2); RDW Standard Deviation 63.0 fL (35.1-46.3)
[2025-04-04 08:53] VITALS: BP 139/74
[2025-04-04 12:34] VITALS: BP 149/73
--- NOTE | 2025-04-04 13:53 | NUR ---
TRANSFER FROM PCU PATIENT TO 229 FROM U2 @1200 ARRIVES IN CHAIR. CONT. PULSE OX IN PLACE. ON 5L NC SPO2 92%. TELE IN PLACE A-FIB IN 90S. PATIENT IS ON PUREWICK, AND WORKING WELL. SPECTRUM ASSEMBLER FOR PULLER OVER HAND IN TO ADJUST RIGHT SOULDER BRACE. PATIENT IS ABLE TO WIGGLE ALL FINGERS AND TOES. DENIES PAIN OR NAUSEA AT THIS TIME. DAUGHTER IN ROOM. CALL LIGHT IN REACH.
[2025-04-04 14:47] LABS: Anion Gap 6.0 mmol/L (3-11); Blood Urea Nitrogen 7.0 mg/dL (8-24); CO2, Blood 38.0 mmol/L (21-32); Calcium, Blood 9.8 mg/dL (8.5-10.1); Chloride, Blood 95.0 mmol/L (98-108); Creatinine, Blood 0.69 mg/dL (0.40-1.00); Glucose, Blood 154.0 mg/dL (70-99); Potassium, Blood 3.8 mmol/L (3.5-5.5); Sodium, Blood 135.0 mmol/L (136-145)
[2025-04-04 15:58] VITALS: BP 144/104
[2025-04-04 16:01] VITALS: BP 131/69
[2025-04-04 19:29] VITALS: BP 142/84
[2025-04-04] MEDS ORDERED: Insulin Regular 100 UNIT/ML 10ML Vial SC SCH (21:00)
[2025-04-05 03:54] VITALS: BP 131/69
--- NOTE | 2025-04-05 04:57 | NUR ---
SHIFT SUMMARY NO ACUTE CHANGES THIS SHIFT. A&O X4. LAP SITES C/D/I. PT TOLERATING PO INTAKE AND DENIES NAUSEA/VOMITING. PUREWICK IN PLACE AND DRAINING YELLOW URINE TO SUCTION. PT REQUIRES 1 PERSON ASSIST TO BEDSIDE COMMMODE FOR BM. CONTINUOUS PULSE OX IN PLACE, SPO2 96% ON 5L VIA NC. PT UP IN CHAIR. CALL LIGHT WITHIN REACH.
[2025-04-05 07:25] VITALS: BP 116/51
[2025-04-05 07:38] LABS: BASOPHILS ABSOLUTE AUTO 0.05 K/mm3 (0.00-0.23); BASOPHILS PERCENT AUTO 1 % (0-2); EOSINOPHILS ABSOLUTE AUTO 0.21 K/mm3 (0.00-0.68); EOSINOPHILS PERCENT AUTO 3 % (0-6); Hematocrit 30.0 % (33.0-51.0); Hemoglobin 8.7 g/dL (11.5-16.0); IMMATURE GRAN ABSOLUTE AUTO 0.05 K/mm3 (0.00-0.10); IMMATURE GRAN PERCENT AUTO 1 % (0-1); LYMPHOCYTES ABSOLUTE AUTO 0.59 K/mm3 (0.84-5.20); LYMPHOCYTES PERCENT AUTO 10 % (21-46); MONOCYTES ABSOLUTE AUTO 0.78 K/mm3 (0.16-1.47); MONOCYTES PERCENT AUTO 13 % (4-13); Mean Corpuscular HGB Conc 29.0 g/dL (31.5-36.5); Mean Corpuscular Volume 90 fL (80-100); NEUTROPHILS ABSOLUTE AUTO 4.46 K/mm3 (1.96-9.15); NEUTROPHILS PERCENT AUTO 73 % (41-73); NRBC ABSOLUTE 0.00 K/mm3 (0.00-0.02); NRBC Auto 0.0 /100 WBC (0.0-0.2); Platelet Count 325 K/mm3 (150-400); RDW Coefficient Variation 19.0 % (11.7-14.2); RDW Standard Deviation 62.5 fL (35.1-46.3)
[2025-04-05] MEDS ORDERED: MetFORMIN HCl 500 mg PO SCH (08:00)
[2025-04-05 08:14] LABS: Anion Gap 5.0 mmol/L (3-11); Blood Urea Nitrogen 6.0 mg/dL (8-24); CO2, Blood 38.0 mmol/L (21-32); Calcium, Blood 9.2 mg/dL (8.5-10.1); Chloride, Blood 99.0 mmol/L (98-108); Creatinine, Blood 0.72 mg/dL (0.40-1.00); Glucose, Blood 127.0 mg/dL (70-99); Potassium, Blood 3.5 mmol/L (3.5-5.5); Sodium, Blood 138.0 mmol/L (136-145)
[2025-04-05 14:18] VITALS: BP 138/67
--- NOTE | 2025-04-05 16:34 | NUR ---
SHIFT SUMMARY PT IS POD 5 COLECTOMY W/OUT OSTMOMY. SURGEON DISCUSSED PT PATHOLOGY RESULTS W/ PT AND HER DAUGHTER. PT IS 1X W/ SATNAM WALKER. PT ABLE TO TOLERATE SMALL WALKS BEFORE NEEDING REST DUE TO SOB. PT ON 4.5L 02 VIA NC. PT TOLERATING PO INTAKE, DENIES N/V. PT IS PASSING FLATUS, HAS HAD SMALL BM TODAY. PT WAS ABLE TO WORK W/ PHYSICAL THERAPY. SURGICAL SITES C/D/I. SOME REDNESS ALONG MIDLINE INCISION. PLAN IS FOR DC TO [facility] IN A FEW DAYS ONCE PT HAS SUBSTANTIAL BM.
[2025-04-05 19:14] VITALS: BP 144/70
--- NOTE | 2025-04-05 22:37 | NUR ---
RT TO ROOM FOR CPAP SETUP. PT REFUSED USE OF CPAP. PT STATED NC MORE COMFORTABLE. CONTINUOUS PULSE OX IN PLACE. 5L O2 VIA NC, SPO2 95%.
[2025-04-06 05:04] VITALS: BP 134/71
--- NOTE | 2025-04-06 05:59 | NUR ---
SHIFT SUMMARY NO ACUTE CHANGES THIS SHIFT. LAP SITES X4 C/D/I. PT A&O X4. VSS. CONTINUOUS PULSE OX IN PLACE, SPO2 96% ON 4L O2 VIA NC. PT TOLERATING PO INTAKE AND DENIES N&V. PT REQUIRES 1 PERSON ASSIST WITH HEMIWALKER TO BEDSIDE COMMODE. PT AMBULATED HALLWAY THIS SHIFT WITH ASSISTANCE. PT UP IN CHAIR WITH CALL LIGHT WITHIN REACH.
[2025-04-06 07:21] VITALS: BP 142/83
[2025-04-06 07:26] LABS: BASOPHILS ABSOLUTE AUTO 0.04 K/mm3 (0.00-0.23); BASOPHILS PERCENT AUTO 1 % (0-2); EOSINOPHILS ABSOLUTE AUTO 0.20 K/mm3 (0.00-0.68); EOSINOPHILS PERCENT AUTO 3 % (0-6); Hematocrit 32.3 % (33.0-51.0); Hemoglobin 9.2 g/dL (11.5-16.0); IMMATURE GRAN ABSOLUTE AUTO 0.06 K/mm3 (0.00-0.10); IMMATURE GRAN PERCENT AUTO 1 % (0-1); LYMPHOCYTES ABSOLUTE AUTO 0.69 K/mm3 (0.84-5.20); LYMPHOCYTES PERCENT AUTO 10 % (21-46); MONOCYTES ABSOLUTE AUTO 0.74 K/mm3 (0.16-1.47); MONOCYTES PERCENT AUTO 11 % (4-13); Mean Corpuscular HGB Conc 28.5 g/dL (31.5-36.5); Mean Corpuscular Volume 89 fL (80-100); NEUTROPHILS ABSOLUTE AUTO 5.32 K/mm3 (1.96-9.15); NEUTROPHILS PERCENT AUTO 75 % (41-73); NRBC ABSOLUTE 0.00 K/mm3 (0.00-0.02); NRBC Auto 0.0 /100 WBC (0.0-0.2); Platelet Count 372 K/mm3 (150-400); RDW Coefficient Variation 18.9 % (11.7-14.2); RDW Standard Deviation 62.2 fL (35.1-46.3)
[2025-04-06 07:41] LABS: Anion Gap 6.0 mmol/L (3-11); Blood Urea Nitrogen 9.0 mg/dL (8-24); CO2, Blood 38.0 mmol/L (21-32); Calcium, Blood 9.7 mg/dL (8.5-10.1); Chloride, Blood 98.0 mmol/L (98-108); Creatinine, Blood 0.75 mg/dL (0.40-1.00); Glucose, Blood 139.0 mg/dL (70-99); Potassium, Blood 4.2 mmol/L (3.5-5.5); Sodium, Blood 138.0 mmol/L (136-145)
[2025-04-06] MEDS ORDERED: Zinc Oxide Ointment 30 GM TOP PRN (14:00)
[2025-04-06 14:29] VITALS: BP 162/64
--- NOTE | 2025-04-06 17:27 | NUR ---
SHIFT SUMMARY POD 6 R SATNAM COLECTOMY PT IS A/OX4. SHE IS ABLE TO MAKE NEEDS KNOWN. LAP SITES C/D/I. PT IS TOLERATING PO INTAKE WELL, DENIES N/V. PT VOIDING WELL. PT HAD MULTIPLE BM TODAY. PT IS SBA W/ SATNAM WALKER. PAIN MANAGED PER EMAR. PLAN IS FOR PT TO DC TOMORROW. CALL LIGHT IN REACH RESTING IN CHAIR. ENCOURAGED FREQUENT REPOSITIONING SO PT DOESNT DEVELOP PRESSURE WOUND.
[2025-04-06 19:25] VITALS: BP 155/78
--- NOTE | 2025-04-07 04:13 | NUR ---
SHIFT SUMMARY DAVID WAS ALERT AND FULLY ORIENTED ON ASSESSMENT. PT DENIES NAUSEA, CHEST PAIN, SOB. LAP SITES C/D/I. PT C/O SHOULDER APPLIANCE, ADJUSTMENTS MADE. PAIN WELL CONTROLLED. PT HAD AN ANXIETY ATTACK EARLY IN SHIFT, HOSPITALIST CALLED, MEDS ORDERED TO GOOD EFFECT. NO OTHER ACUTE EVENTS THIS SHIFT
[2025-04-07 05:55] VITALS: BP 173/89
[2025-04-07 07:48] VITALS: BP 143/73
[2025-04-07 14:31] VITALS: BP 147/76
--- NOTE | 2025-04-07 18:25 | NUR ---
SUMMARY: PT IS POD8 SATNAM COLECTOMY. A/O, VSS. NO CHANGE. PT IS SBA WITH SATNAM WALKER, TOLERATING DIET AND HAD BM TODAY. DENIES PAIN, CBG'S WNL. PLAN IS POSSIBLE DC TO SNF TOMORROW. NO ACUTE CONCERNS.
[2025-04-07 19:38] VITALS: BP 149/81
--- NOTE | 2025-04-08 04:55 | NUR ---
SHIFT SUMMARY POD8 R HEMICOLECTOMY. LAP SITES ARE C/D/I, COVERED WITH STERI STRIPS. VSS. PT SLEPT WELL T/O THE NGIHT. PT TOLLERATING PO INTAKE W/O N/V. VOIDING AND PASSING FLATTUS, NO BM THIS EVENING. PT EDUCATED ABOUT PRESSURE SORES AND HOW TO IMPROVE THE REDDNESS AND PAIN ON HER BUTTOX. IMMOBILIZER REMAINS IN PLACE ON RUE. PT UTILIZING SATNAM WALKER. POWDER APPLIED TO ABDOMINAL FOLDS, BREASTS, AND UNDERARMS. PT MEDICATED FOR PAIN WITH NORCO WITH GOOD RESULTS. OVERALL, NO ACUTE EVENTS NOTED. PLAN TO AWAIT AUTHORIZATION FOR SNF. THE PATIENT IS CURRENTLY SLEEPING, IN NO DISTRESS, CALL LIGHT IN REACH
[2025-04-08 05:54] VITALS: BP 156/74
[2025-04-08 07:30] VITALS: BP 134/82
[2025-04-08 14:44] VITALS: BP 162/87
--- NOTE | 2025-04-08 18:28 | NUR ---
SHIFT SUMMARY POD8 SATNAM COLECTOMY, A/OX4, VSS, TOLERATING PO, ABLE TO AMBULATE INDEPENDENTLY UNDER DIRECT OBSERVATION BY THIS RN THOUGH SHE WAS USING A SATNAM WALKER FOR BALANCE. OXYGEN REMAINS AT 3L NC FOR SATS > 92%. NO ACUTE EVENTS THIS SHIFT, CALL LIGHT IN REACH.
[2025-04-08 18:47] VITALS: BP 125/77
[2025-04-08 18:49] VITALS: BP 123/83
[2025-04-09 03:53] VITALS: BP 136/68
--- NOTE | 2025-04-09 04:30 | NUR ---
SKIN IRRITATION. PT NOTED HAVING TENDERNESS WHERE SLING/BRACE WRAPS UNDER HER LEFT ARM. BLANCHABLE REDNESS NOTED, SKIN INTACT. WRAPPED X2 ABDOMINAL PADS AROUND SLING STRAP FOR BARRIER AND COMFORT. PT VERBALIZED IMPROVEMENT IN TENDERNESS.
--- NOTE | 2025-04-09 06:15 | NUR ---
SHIFT SUMMARY NOC. PT S/P HEMICOLECTOMY, LAP SITES C/D/I. PT MEDICATED FOR PAIN X1 NORCO WITH REPORTED RELIEF. PT VOIDING URINE VIA BSC WITH SATNAM WALKER AND SBA, TOLERATING PO INTAKE. PT HAVING DIFFICULTY GETTING COMFORTABLE WITH POSITIONING AND CALLS FREQUENTLY. NON-LAP SITE RED SCAB ON RUQ ABDOMEN, MARKED MARGINS THIS SHIFT WITH NO REDNESS OUTSIDE MARKED AREA.
[2025-04-09 07:21] VITALS: BP 140/80
[2025-04-09 14:12] VITALS: BP 138/68
--- NOTE | 2025-04-09 18:02 | NUR ---
SHIFT SUMMARY EATING, DRINKING, VOIDING WELL. PAIN WELL CONTROLLED. SURG SITE WNL; NO CHANGES TO OUTLINED SPOT ON ABD. SBA w/ HEMIWALKER TO BSC, MIN ASSIST w/ ATTENDS. R ARM IN MARTINEZ BRACE.
[2025-04-09 20:35] VITALS: BP 148/68
[2025-04-10 04:53] VITALS: BP 138/79
[2025-04-10 07:05] VITALS: BP 142/76
--- NOTE | 2025-04-10 07:07 | NUR ---
SHIFT SUMMARY NOC. PT S/P ELECTIVE HEMICOLECTOMY, LAP SITES C/D/I. PT MEDICATED FOR RUE AND ABDOMINAL PAIN 1X THIS SHIFT. PT VOIDING URINE VIA BSC WITH SBA AND SATNAM WALKER. PT RESTED BETTER THIS SHIFT THAN PAST SHIFT WITH THIS RN. PT ON 3-4L VIA N/C WITH BUBBLER. PT CALLS FREQUENTLY AND MAKES NEEDS KNOWN.
--- NOTE | 2025-04-10 08:48 | NUR ---
ASSUMPTION NOTE: THIS RN TO ASSUME CARE OF PATIENT. PAITENT AMBULATED TO BEDSIDE COMMODE WITH STAND BY ASSIST USING THE SATNAM CANE. SITTING AT THE EDGE OF THE BED EATING BRAKFAST,CALL LIGHT WITHIN REACH, BED INLOWEST LOCKED POSITION & STATING NOTHING ELSE IS NEEDED AT THIS TIME.
[2025-04-10] MEDS ORDERED: Polyethylene Glycol 3350 17 gm PO PRN (09:20)
--- NOTE | 2025-04-10 10:23 | NUR ---
MORNING UPDATE. SUMMER ROUNDED AND SPOKE WITH PATIENT REGARDING PATIENT STATED "I FEEL BLOATED & BACKED UP". MD PLACED ORDERS FOR PRN MIRALAX. ELAINE HAD A BOWEL MOVEMET THIS MORNING AND STATED SHE WANTED TO WAIT FOR THE MIRALAX AT THIS TIME. PATIENT SHOWERED & SLING WAS PLACED BACK ON. PATIENT CURRENTLY SITTING UP IN THE CHAIR WITH CALL LIGHT WITHIN REACH.
[2025-04-10 10:43] LABS: BASOPHILS ABSOLUTE AUTO 0.05 K/mm3 (0.00-0.23); BASOPHILS PERCENT AUTO 1 % (0-2); EOSINOPHILS ABSOLUTE AUTO 0.26 K/mm3 (0.00-0.68); EOSINOPHILS PERCENT AUTO 4 % (0-6); Hematocrit 35.3 % (33.0-51.0); Hemoglobin 10.1 g/dL (11.5-16.0); IMMATURE GRAN ABSOLUTE AUTO 0.05 K/mm3 (0.00-0.10); IMMATURE GRAN PERCENT AUTO 1 % (0-1); LYMPHOCYTES ABSOLUTE AUTO 0.82 K/mm3 (0.84-5.20); LYMPHOCYTES PERCENT AUTO 11 % (21-46); MONOCYTES ABSOLUTE AUTO 0.54 K/mm3 (0.16-1.47); MONOCYTES PERCENT AUTO 7 % (4-13); Mean Corpuscular HGB Conc 28.6 g/dL (31.5-36.5); Mean Corpuscular Volume 87 fL (80-100); NEUTROPHILS ABSOLUTE AUTO 5.71 K/mm3 (1.96-9.15); NEUTROPHILS PERCENT AUTO 77 % (41-73); NRBC ABSOLUTE 0.00 K/mm3 (0.00-0.02); NRBC Auto 0.0 /100 WBC (0.0-0.2); Platelet Count 371 K/mm3 (150-400); RDW Coefficient Variation 18.4 % (11.7-14.2); RDW Standard Deviation 59.3 fL (35.1-46.3)
--- NOTE | 2025-04-10 11:00 | NUR ---
MD KOHLI: EFM PROVIDER ROUNDED ON PATIENT AND ALERATED PAIENT THAT HE WAS GOING TO SIGN OFF AND AWARE WE ARE WAITING FOR SNF PLACEMENT. AWARE THAT NIX ORDERED PRN MIRALAX AND THAT PAIENT IS HAVING BOWEL MOVEMENTS.
[2025-04-10 11:05] LABS: Anion Gap 8.0 mmol/L (3-11); Blood Urea Nitrogen 12.0 mg/dL (8-24); CO2, Blood 36.0 mmol/L (21-32); Calcium, Blood 9.3 mg/dL (8.5-10.1); Chloride, Blood 97.0 mmol/L (98-108); Creatinine, Blood 0.87 mg/dL (0.40-1.00); Glucose, Blood 207.0 mg/dL (70-99); Magnesium, Blood 2.1 mg/dL (1.6-2.4); Potassium, Blood 4.3 mmol/L (3.5-5.5); Sodium, Blood 137.0 mmol/L (136-145)
[2025-04-10 15:19] VITALS: BP 111/75
[2025-04-10 19:35] VITALS: BP 100/73
--- NOTE | 2025-04-10 20:30 | NUR ---
REFUSING CPAP AND CONT BIOX PT REFUSING CPAP AND CONT BIOX. RISK VS BENIFIT, COUPLED WITH PT RIGHTS EDUCATION PROVIDED BY THIS RN AND RT, LB. PT VERBALIZED UNDERSTANDING AND CONTINUES TO REF. REFUSAL FORM SIGNED. NC IN PLACE AND PT REPORTS PLANNING ON SLEEPING WITH NC VS CPAP. PT DENIES SOB AT THIS TIME. PT ENCOURAGED TO CALL WITH ANY CHANGES OR IF SHE DECIDES TO WEAR CPAP. PT VERBALIZED UNDERSTANDING. CHARGE AWARE. PT WATCHING TV IN CHAIR WITH CALL LIGHT IN REACH.
[2025-04-11 04:30] VITALS: BP 133/69
--- NOTE | 2025-04-11 05:42 | NUR ---
SHIFT SUMMARY NO ACUTE CHANGES T/O SHIFT. IS S/P COLECTOMY. ABD INCISIONS CDI. RIGHT ARM SLING IN PLACE. DENIES N/V. PAIN MANAGED PER EMAR. UP TO CHAIR/BED WITH 1 ASSIST HEMIWALKER. CHERELLE PO INTAKE, DENIES N/V. PLAN FOR POTENTIAL DC TODAY. PT UP IN CHAIR AT THIS TIME. HAS CALL LIGHT IN REACH AND ABLE TO MAKE NEEDS KNOWN. WILL GIVE REPORT TO ONCOMING RN.
[2025-04-11 07:49] VITALS: BP 136/53
--- NOTE | 2025-04-11 11:54 | NUR ---
AMBUALTING WITH OZ/MATT.
--- NOTE | 2025-04-11 16:00 | NUR ---
SON BEDSIDE SON AND PT SPEAKING TO CENTERLESS GRINDER SET UP OPERATOR.
--- NOTE | 2025-04-11 16:40 | NUR ---
report given and care turned over to palomo fonseca.
--- NOTE | 2025-04-11 16:42 | NUR ---
RESUMED CARE OF PATIENT AT 1632, INTRODUCED MYSELF TO PATIENT. COMPLAINTS OF PAIN TO RIGHT SHOULDER, HOWEVER DENIED NEED FOR PHARMACOLOGIC INTERVENTION AT THIS TIME.
--- NOTE | 2025-04-11 16:58 | NUR ---
SUMMARY NO ACUTE CHANGES T/O SHIFT. PT SAT UP IN CHAIR T/O DAY. WORKED WITH PHYS THERAPY AND OT. HAD ONE EPISODEO OF URGE INCONTINENCE THIS SHIFT. HAD SPECTRUM COME IN AND ADJUST R SHOULDER BRACE. PLAN TO DC HOME WITH HH TOMORROW.
[2025-04-11 19:29] VITALS: BP 121/73
--- NOTE | 2025-04-12 03:17 | NUR ---
SHIFT SUMMARY: PT IS AOX4. AMBULATES WITH SBA TO TOILET. PT IS STILL REQUESTING ASSISTANCE WITH CLEANING HERSELF IN RESTROOM. PT R ARM IS IMMOBILIZED. CALL LIGHT IS WITHIN REACH. BED IS LOW AND LOCKED.
[2025-04-12 05:07] VITALS: BP 162/82
[2025-04-12 08:16] VITALS: BP 156/98
--- NOTE | 2025-04-12 11:07 | NUR ---
dr negron in to see pt.
--- NOTE | 2025-04-12 11:50 | NUR ---
DR WHEELER IN TO SEE PT. DR PHAN IN TO SEE PT EARLIER.
[2025-04-12 14:23] VITALS: BP 135/96
--- NOTE | 2025-04-12 15:22 | NUR ---
report given and care turned over to concepcion alexander rn.
--- NOTE | 2025-04-12 15:45 | NUR ---
ASSUME CARE THIS RN TO ASSUME CARE, REPORT FROM ANA RN, FAMILY IN ROOM AT THIS TIME. DENIES NEEDS AT THIS TIME. CALL LIGHT IN REACH.
--- NOTE | 2025-04-12 17:08 | NUR ---
SHIFT SUMMARY NO ACUTE EVENTS SINCE ASSUMED CARE. PLAN FOR DC TOMORROW WITH H/H TO [facility]. HOME CARE GIVING IN ROOM FOR MEETING WITH FAMILY. PATIENT IS AOX4, VSS. AND ABLE TO MAKE NEEDS KNOWN.
[2025-04-12 19:45] VITALS: BP 138/65
--- NOTE | 2025-04-13 03:47 | NUR ---
SHIFT SUMMARY NO ACUTE CHANGES TONIGHT S/P HEMICOLECTOMY. PT IS A/OX4 WITH VSS. PAIN MANAGED WITH REPOSITIONING AND ICE, NO PRN COVERAGE REQUIRED. ON 3L NC, DENIES SOB. IVF INFUSED PER ORDERS. SBA WITH HEMIWALKER AND GB, TOLERATING AMB TO BATHROOM WELL. AWAITING PLACEMENT/ DC. PT CURRENTLY RESTING IN BED WITH CALL LIGHT IN REACH AND RESP EVEN UNLABORED. WILL GIVE REPORT TO ONCOMING RN .
[2025-04-13 05:17] VITALS: BP 148/87
[2025-04-13 05:55] LABS: Hematocrit 35.4 % (33.0-51.0); Hemoglobin 10.4 g/dL (11.5-16.0); Mean Corpuscular HGB Conc 29.4 g/dL (31.5-36.5); Mean Corpuscular Volume 86 fL (80-100); NRBC ABSOLUTE 0.00 K/mm3 (0.00-0.02); NRBC Auto 0.0 /100 WBC (0.0-0.2); Platelet Count 374 K/mm3 (150-400); RDW Coefficient Variation 18.2 % (11.7-14.2); RDW Standard Deviation 57.8 fL (35.1-46.3)
[2025-04-13 06:10] LABS: Albumin, Blood 3.5 g/dL (3.4-5.0); Anion Gap 6 mmol/L (3-11); Blood Urea Nitrogen 17 mg/dL (8-24); CO2, Blood 37 mmol/L (21-32); Calcium, Blood 9.3 mg/dL (8.5-10.1); Chloride, Blood 97 mmol/L (98-108); Creatinine, Blood 1.04 mg/dL (0.40-1.00); Glucose, Blood 136 mg/dL (70-99); Phosphorus, Blood 3.8 mg/dL (2.5-4.9); Potassium, Blood 4.7 mmol/L (3.5-5.5); Sodium, Blood 135 mmol/L (136-145)
[2025-04-13 07:52] VITALS: BP 157/78
[2025-04-13] MEDS ORDERED: XARELTO20 MG PO (15:17)
[2025-04-13] MEDS ORDERED: ENDIT56.7 GM TOP (15:18)
[2025-04-13] MEDS ORDERED: METAMUCIL174 GM PO (15:19)
[2025-04-13] MEDS ORDERED: SOAANZ20 M1 PO (15:20)
[2025-04-13] MEDS ORDERED: HYDHCL25 PO (15:21)
--- NOTE | 2025-04-13 16:27 | NUR ---
DISCHARGE PT AA0X4, AMBULATING WELL USING SATNAM WALKER. INCISIONS REMAIN CDI. R ARM IN SLING DURING SHIFT. TOLERATING DIET WELL, HAVING LOOSE STOOLS. ALL DISCHARGE INSTRUCTIONS GONE OVER WITH PATIENT AND SON. ALL QUESTIONS ANSWERED. TAKEN OUT WITH OXYGEN TANK SHE HAD FROM PRIOR TO ADMISSION.
== END 2025-04-13 16:29 | disposition home health service (06) | DRG 329 ==
LOC: SURS 08:09 → PCU 08:09 → SURS 04-04 12:33
PROVIDERS: Internal Medicine; Student in an Organized Health Care Education/Training Program; Surgery; ADMIT Surgery
PROC: 4A033R1 Measurement of Arterial Saturation, Peripheral, Percutaneous Approach (ICD-10-PCS; 2025-03-31)
PROC: 3E03329 Introduction of Other Anti-infective into Peripheral Vein, Percutaneous Approach (ICD-10-PCS; 2025-03-31)
PROC: 3E02340 Introduction of Influenza Vaccine into Muscle, Percutaneous Approach (ICD-10-PCS; 2025-03-31)
PROC: 0DTF4ZZ Resection of Right Large Intestine, Percutaneous Endoscopic Approach (ICD-10-PCS; principal; 2025-03-31 09:00)
DX: C18.2 Malignant neoplasm of ascending colon (principal); J96.01 Acute respiratory failure with hypoxia; J96.02 Acute respiratory failure with hypercapnia; I48.20 Chronic atrial fibrillation, unspecified; I50.42 Chronic combined systolic (congestive) and diastolic (congestive) heart failure; J44.1 Chronic obstructive pulmonary disease with (acute) exacerbation; J98.11 Atelectasis; K56.7 Ileus, unspecified; R18.8 Other ascites; Z68.41 Body mass index [BMI] 40.0-44.9, adult; F32.A Depression, unspecified; E78.5 Hyperlipidemia, unspecified; E03.9 Hypothyroidism, unspecified; I25.10 Atherosclerotic heart disease of native coronary artery without angina pectoris; G47.33 Obstructive sleep apnea (adult) (pediatric); M17.0 Bilateral primary osteoarthritis of knee; G25.81 Restless legs syndrome; Z96.652 Presence of left artificial knee joint; E11.9 Type 2 diabetes mellitus without complications; Z23 Encounter for immunization; I11.0 Hypertensive heart disease with heart failure; E66.01 Morbid (severe) obesity due to excess calories; E87.6 Hypokalemia; R41.0 Disorientation, unspecified; D64.9 Anemia, unspecified; R19.7 Diarrhea, unspecified; Z87.39 Personal history of other diseases of the musculoskeletal system and connective tissue; Z90.710 Acquired absence of both cervix and uterus; Z90.49 Acquired absence of other specified parts of digestive tract; Z90.722 Acquired absence of ovaries, bilateral; Z87.81 Personal history of (healed) traumatic fracture; Z79.899 Other long term (current) drug therapy; Z79.51 Long term (current) use of inhaled steroids; Z79.4 Long term (current) use of insulin; Z79.890 Hormone replacement therapy; Z88.8 Allergy status to other drugs, medicaments and biological substances; Z87.19 Personal history of other diseases of the digestive system; Z87.891 Personal history of nicotine dependence; Z79.84 Long term (current) use of oral hypoglycemic drugs; Z79.891 Long term (current) use of opiate analgesic; Z91.198 Patient's noncompliance with other medical treatment and regimen for other reason
CPT/HCPCS: 36415; 71045; 73060; 74177; 80048; 80053; 80069; 82565; 82803; 82947; 83735; 83880; 84100; 84484; 85025; 85027; 86850; 86900; 86901; 88309; 94640; 94664; 94760; 94762; 97110; 97112; 97116; 97161; 97165; 97530; 97535; A9270; J0295; J0780; J1171; J1650; J1815; J1885; J1938; J2250; J2371; J2405; J2704; J3010; J3480; J7050; J7060; J7120; Q9967